=== PATIENT | male | born 1935 | race Caucasian/White ===

== ENCOUNTER → 2017-03-18 | Outpatient (REF) | payer MEDICARE, OTHER | LOC: M LAB REF 18:40 | PROVIDERS: ATTEND Surgery | DX: E11.621 Type 2 diabetes mellitus with foot ulcer (principal); I70.245 Atherosclerosis of native arteries of left leg with ulceration of other part of foot; L97.523 Non-pressure chronic ulcer of other part of left foot with necrosis of muscle | CPT/HCPCS: 11043; 88305; G0463 ==

== ENCOUNTER → 2017-11-07 | Outpatient (REF) | payer OTHER ==
[2017-11-07 21:30] LABS: BASO # 0.1 10^3/uL (0.0-0.2); BASO % 1.2 % (0.0-1.0); EOS # 0.1 10^3/uL (0.0-0.50); EOS % 2.8 % (0.0-3.0); HEMATOCRIT 27.1 % (42.0-52.0); HEMOGLOBIN 8.5 g/dl (14.0-18.0); IMMATURE GRANULOCYTE % 1.4 % (0-3.0); LYMPH # 1.1 10^3/uL (1.5-4.5); LYMPH % 21.4 % (24.0-44.0); MEAN CORPUSCULAR HEMOGLOBIN 29.5 pg (27.0-33.0); MEAN CORPUSCULAR HGB CONC 31.4 g/dl (32.0-36.5); MEAN CORPUSCULAR VOLUME 94.1 fl (80.0-96.0); MONO # 0.6 10^3/uL (0.0-0.8); MONO % 12.1 % (0.0-5.0); NEUTROPHILS # 3.1 10^3/uL (1.8-7.7); NEUTROPHILS % 61.1 % (36.0-66.0); PLATELET COUNT, AUTOMATED 265 10^3/uL (150-450); RED BLOOD COUNT 2.88 10^6/uL (4.30-6.10); RED CELL DISTRIBUTION WIDTH 19.8 % (11.5-14.5); WHITE BLOOD COUNT 5.1 10^3/uL (4.0-10.0)
[2017-11-07 21:49] LABS: ALBUMIN 2.5 GM/DL (3.2-5.2); ALBUMIN/GLOBULIN RATIO 0.54 (1.00-1.93); ALKALINE PHOSPHATASE 55 U/L (45-117); ALT/SGPT 9 U/L (12-78); ANION GAP 10 MEQ/L (8-16); AST/SGOT 33 U/L (7-37); BILIRUBIN,TOTAL 1.2 MG/DL (0.2-1.0); BLOOD UREA NITROGEN 18 MG/DL (7-18); C REACTIVE PROTEIN QUANTITATIV 6.03 MG/DL (0.00-0.30); CALCIUM LEVEL 8.2 MG/DL (8.8-10.2); CARBON DIOXIDE LEVEL 31 MEQ/L (21-32); CHLORIDE LEVEL 98 MEQ/L (98-107); CREATININE FOR GFR 1.56 MG/DL (0.70-1.30); GLOMERULAR FILTRATION RATE 45.6 (>35); GLUCOSE, FASTING 94 MG/DL (70-100); POTASSIUM SERUM 3.6 MEQ/L (3.5-5.1); SODIUM LEVEL 139 MEQ/L (136-145); TOTAL PROTEIN 7.1 GM/DL (6.4-8.2)
[2017-11-07 22:29] LABS: ERYTHROCYTE SEDIMENTATION RATE 129 mm/hr (0-20)
== END ==
LOC: M LAB REF 10:02
DX: Z79.2 Long term (current) use of antibiotics (principal); A49.01 Methicillin susceptible Staphylococcus aureus infection, unspecified site
CPT/HCPCS: 80053

== ENCOUNTER → 2017-11-14 | Outpatient (REF) | payer OTHER ==
[2017-11-14 19:04] LABS: BASO # 0.1 10^3/uL (0.0-0.2); BASO % 1.1 % (0.0-1.0); EOS # 0.2 10^3/uL (0.0-0.50); EOS % 3.1 % (0.0-3.0); HEMATOCRIT 28.8 % (42.0-52.0); HEMOGLOBIN 9.2 g/dl (14.0-18.0); IMMATURE GRANULOCYTE % 1.8 % (0-3.0); LYMPH # 1.3 10^3/uL (1.5-4.5); LYMPH % 24.6 % (24.0-44.0); MEAN CORPUSCULAR HEMOGLOBIN 30.3 pg (27.0-33.0); MEAN CORPUSCULAR HGB CONC 31.9 g/dl (32.0-36.5); MEAN CORPUSCULAR VOLUME 94.7 fl (80.0-96.0); MONO # 0.6 10^3/uL (0.0-0.8); MONO % 10.7 % (0.0-5.0); NEUTROPHILS # 3.2 10^3/uL (1.8-7.7); NEUTROPHILS % 58.7 % (36.0-66.0); PLATELET COUNT, AUTOMATED 280 10^3/uL (150-450); RED BLOOD COUNT 3.04 10^6/uL (4.30-6.10); RED CELL DISTRIBUTION WIDTH 19.9 % (11.5-14.5); WHITE BLOOD COUNT 5.4 10^3/uL (4.0-10.0)
[2017-11-14 19:15] LABS: ALBUMIN 2.8 GM/DL (3.2-5.2); ALBUMIN/GLOBULIN RATIO 0.62 (1.00-1.93); ALKALINE PHOSPHATASE 58 U/L (45-117); ALT/SGPT 46 U/L (12-78); ANION GAP 14 MEQ/L (8-16); AST/SGOT 70 U/L (7-37); BILIRUBIN,TOTAL 0.8 MG/DL (0.2-1.0); BLOOD UREA NITROGEN 31 MG/DL (7-18); C REACTIVE PROTEIN QUANTITATIV 4.69 MG/DL (0.00-0.30); CALCIUM LEVEL 8.6 MG/DL (8.8-10.2); CARBON DIOXIDE LEVEL 26 MEQ/L (21-32); CHLORIDE LEVEL 99 MEQ/L (98-107); CREATININE FOR GFR 1.58 MG/DL (0.70-1.30); GLOMERULAR FILTRATION RATE 44.9 (>35); GLUCOSE, FASTING 130 MG/DL (70-100); POTASSIUM SERUM 4.4 MEQ/L (3.5-5.1); SODIUM LEVEL 139 MEQ/L (136-145); TOTAL PROTEIN 7.3 GM/DL (6.4-8.2)
[2017-11-14 20:48] LABS: ERYTHROCYTE SEDIMENTATION RATE 89 mm/hr (0-20)
== END ==
LOC: M LAB REF 17:46
DX: J18.9 Pneumonia, unspecified organism (principal)
CPT/HCPCS: 80053

== ENCOUNTER → 2017-11-21 | Outpatient (REF) | payer OTHER ==
[2017-11-21 21:04] LABS: BASO # 0.1 10^3/uL (0.0-0.2); EOS # 0.2 10^3/uL (0.0-0.50); EOS % 2.6 % (0.0-3.0); HEMATOCRIT 28.6 % (42.0-52.0); HEMOGLOBIN 9.3 g/dl (14.0-18.0); IMMATURE GRANULOCYTE % 0.8 % (0-3.0); LYMPH # 1.3 10^3/uL (1.5-4.5); LYMPH % 20.6 % (24.0-44.0); MEAN CORPUSCULAR HEMOGLOBIN 30.7 pg (27.0-33.0); MEAN CORPUSCULAR HGB CONC 32.5 g/dl (32.0-36.5); MEAN CORPUSCULAR VOLUME 94.4 fl (80.0-96.0); MONO # 0.6 10^3/uL (0.0-0.8); MONO % 9.9 % (0.0-5.0); NEUTROPHILS # 3.9 10^3/uL (1.8-7.7); NEUTROPHILS % 65.1 % (36.0-66.0); PLATELET COUNT, AUTOMATED 265 10^3/uL (150-450); RED BLOOD COUNT 3.03 10^6/uL (4.30-6.10); WHITE BLOOD COUNT 6.1 10^3/uL (4.0-10.0)
[2017-11-21 21:32] LABS: ERYTHROCYTE SEDIMENTATION RATE 107 mm/hr (0-20)
[2017-11-21 21:43] LABS: ALBUMIN/GLOBULIN RATIO 0.63 (1.00-1.93); ALKALINE PHOSPHATASE 60 U/L (45-117); ALT/SGPT 22 U/L (12-78); ANION GAP 7 MEQ/L (8-16); AST/SGOT 65 U/L (7-37); BILIRUBIN,TOTAL 0.7 MG/DL (0.2-1.0); BLOOD UREA NITROGEN 48 MG/DL (7-18); C REACTIVE PROTEIN QUANTITATIV 8.92 MG/DL (0.00-0.30); CALCIUM LEVEL 8.9 MG/DL (8.8-10.2); CARBON DIOXIDE LEVEL 29 MEQ/L (21-32); CHLORIDE LEVEL 100 MEQ/L (98-107); CREATININE FOR GFR 1.94 MG/DL (0.70-1.30); GLOMERULAR FILTRATION RATE 35.4 (>35); GLUCOSE, FASTING 69 MG/DL (70-100); SODIUM LEVEL 136 MEQ/L (136-145); TOTAL PROTEIN 7.8 GM/DL (6.4-8.2)
[2017-11-21 21:48] LABS: POTASSIUM SERUM 5.5 MEQ/L (3.5-5.1)
== END ==
LOC: M LAB REF 20:54
DX: J18.9 Pneumonia, unspecified organism (principal); Z89.442 Acquired absence of left ankle
CPT/HCPCS: 80053

== ENCOUNTER 2018-09-04 12:00 | Inpatient (IN) | payer OTHER ==
[~2018-09-04] VITALS: Ht 182.9 cm; Wt 98.5 kg
[2018-09-04 12:00] VITALS: BP 131/60
[2018-09-04] MEDS ORDERED: ASPI81TA24 PO (12:59)
[2018-09-04] MEDS ORDERED: ACE65ERTAB PO (12:59)
[2018-09-04] MEDS ORDERED: DIGO0.12 PO (12:59)
[2018-09-04] MEDS ORDERED: DIAZ2TAB PO (12:59)
[2018-09-04] MEDS ORDERED: FENO145T13 PO (13:12)
[2018-09-04] MEDS ORDERED: SENO8.6T5 PO (13:12)
[2018-09-04] MEDS ORDERED: WARF-21 PO (13:12)
[2018-09-04] MEDS ORDERED: ESCI5SOL3 PO (13:12)
[2018-09-04] MEDS ORDERED: FURO40TA2 PO (13:12)
[2018-09-04] MEDS ORDERED: PANT40TA3 PO (13:12)
[2018-09-04] MEDS ORDERED: FERR325T3 PO (13:12)
[2018-09-04] MEDS ORDERED: INSUHUMDS SC (13:12)
[2018-09-04] MEDS ORDERED: LANTINJ4 SC (13:12)
[2018-09-04] MEDS ORDERED: LEXA5TAB13 PO (13:14)
[2018-09-04 14:00] VITALS: BP 122/57
[2018-09-04] MEDS ORDERED: PERCOCET 5MG/325MG TAB PO PRN ×2 (16:30)
[2018-09-04] MEDS ORDERED: ONDANSETRON 4 MG TAB (S0181) PO PRN (16:30)
[2018-09-04] MEDS ORDERED: MOM 30ML SUSPENSION UDC PO PRN (16:30)
[2018-09-04] MEDS ORDERED: BISACODYL 10 MG SUPP PR PRN (16:30)
[2018-09-04] MEDS ORDERED: GLUCOSE 4 GM CHEW TABLET PO PRN (17:00)
[2018-09-04] MEDS ORDERED: IPRATROPIUM 0.5MG/ALBUTEROL 2.5MG INH SOL UD 3ML (DUONEB)(J7620) NEB PRN (17:00)
[2018-09-04] MEDS ORDERED: DEXTROSE 50% 50 ML SYRINGE IV PRN (17:00)
[2018-09-04] MEDS ORDERED: diazePAM 2 MG TAB PO PRN (17:00)
[2018-09-04] MEDS ORDERED: PIPERACILLIN/TAZOBACTAM SOD 3.375 GM in D5W MINI-BAG PLUS 50 ML IV SCH (17:00)
[2018-09-04] MEDS ORDERED: GLUCAGON FOR INJ 1 MG VIAL (J1610) SC PRN (17:00)
[2018-09-04] MEDS: WARFARIN SOD 5 MG TAB PO SCH (17:30)
[2018-09-04] MEDS: HumaLOG INSULIN (NovoLOG) PER UNIT SC SCH (17:30)
[2018-09-04 20:00] VITALS: BP 126/57
--- NOTE | 2018-09-04 20:30 | HPEPDOC ---
[facility] Medical History & Physical Date of Admission Sep 04, 2018 History and Physical PRIMARY CARE PROVIDER: Dr. Genaro Mccollum Referring physician/hospital: Dr. Rush/[facility] HISTORY OF PRESENT ILLNESS: 83-year-old male presenting status post hospital discharge from [facility]. Patient is a poor historian, much information is obtained from the chart. 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 Postoperatively he experienced swelling, anemia, and was treated with IV Zosyn for pneumonia. Prior to this beginning 05/04/18 he underwent a popliteal artery to fibular artery bypass with reverse saphenous grafting and subsequently required amputation of his toes secondary to poor healing and gangrene. Initially he only had his first big toe amputated, however poor healing requiring a dictation of his second and third. Eventually he was admitted to the hospital on 08/25/18 with cellulitis and left foot gangrene subsequently underwent a left-sided BKA. He has no complaints at this time. 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 3 [place] and 2 chickens FAMILY HISTORY: Both parents are with a history of diabetes ALLERGIES: Please see below. REVIEW OF SYSTEMS: GENERAL: Denies fevers, chills, recent unexpected weight change HEENT: Denies headache, dizziness, vision changes, sore throat CARDIOVASCULAR: Denies chest pain,palpitations RESPIRATORY: Denies shortness of breath,cough, wheezing GASTROINTESTINAL: denies nausea,vomiting, abdominal pain, constipation, diarrhea GENITOURINARY: Denies dysuria,urinary urgency, frequency. MUSCULOSKELETAL: Denies myalgias,arthralgias NEUROLOGICAL: Denies any new numbness/tingling HOME MEDICATIONS: Please see below. PHYSICAL EXAMINATION: Vitals: (see below) General: No acute distress, laying comfortably in chair HEENT: Normocephalic, atraumatic. EOMI. Partial hearing loss in both ears. 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 Moist mucous membranes. Neck: No JVD or lymphadenopathy Cardiac: Irregular rate and rhythm on auscultation, normal S1 and S2. No murmurs appreciated on auscultation Pulm: Clear to auscultation b/l. No wheezing, rhonchi, crackles Abd: Soft, nontender, nondistended. Bowel sounds present. No rebound, guarding, rigidity. Ext: Left-sided BKA with wound dressing applied. No right-sided edema or cyanosis. Neuro: Strength 5/5 BUE and RLE. CN 3-12 intact. Sensation intact. LABORATORY DATA: See below. IMAGING: MICROBIOLOGY: Please see below. ASSESSMENT/PLAN: Patient is an 83-year-old male with significant vascular disease and diabetes status post left-sided BKA presenting to [facility] for rehabilitation. #. Rehabilitation Defer to primary team #. Left-sided BKA Primary team would likely benefit from outpatient and inpatient records especially from the patient's hospital stay Continue with pain medication (Percocet) as needed and valium for muscle spasm. #. Type 2 diabetes Sliding scale insulin 20 units of Levemir daily at bedtime #. History of anemia s/p BKA Continue with iron supplementation #. Atrial fibrillation Continue Coumadin, INR monitoring #. Diastolic Heart failure Continue with daily Lasix and digoxin #. Diabetic neuropathy Continue gabapentin #. Hyperlipidemia Continue with Ezetimibe and Fenofibrate #.Depression/anxiety? (patient unaware of medical conditions or medications) Continue with Lexapro #. COPD Continue duonebs as needed #. Constipation Continue with colace, dulcolax, milk of magnesia and senna #. GERD Continue Protonix DVT prophy: On Coumadin Vital Signs Vital Signs Date Time Temp Pulse Resp B/P (MAP) Pulse Ox O2 Delivery O2 Flow Rate FiO2 09/04/18 14:00 98.2 58 18 122/57 (78) 100 Room Air Laboratory Data Labs 24H Laboratory Tests 2 09/04/18 13:04: Bedside Glucose (Misc Panel) 261H 09/04/18 16:30: Bedside Glucose (Misc Panel) 238H 09/04/18 19:59: Bedside Glucose (Misc Panel) 250H Home Medications Scheduled (Digoxin) 125 Mcg Tab, 125 MCG PO QPM Aspirin (Aspirin EC) 81 Mg Tab, 81 MG PO DAILY Escitalopram Oxalate (Lexapro) 5 Mg Tab, 5 MG PO DAILY Fenofibrate (Fenofibrate) 145 Mg Tab, 145 MG PO QPM Ferrous Sulfate (Ferrous Sulfate) 325 Mg Tab, 325 MG PO BID Furosemide (Furosemide) 40 Mg Tab, 40 MG PO DAILY Insulin Glargine (Lantus Solostar) 100 Unit/Ml Inj, 18 UNITS SC QHS Insulin Human Lispro (Humalog) 1 Units/0.01 Ml Inj, 1 UNITS SC AC SLIDING SCALE Pantoprazole Sodium (Pantoprazole Sodium) 40 Mg Tab, 40 MG PO DAILY Senna (Senokot) 8.6 Mg Tab, 8.6 MG PO DAILY HOLD FOR LOOSE STOOLS Warfarin Sod (Warfarin Sodium) 7.5 Mg Tab, 7.5 MG PO ONCE GIVEN A ONE TIME ORDER Scheduled PRN Acetaminophen (Acetaminophen ER) 650 Mg Tab, 650 MG PO Q6H PRN for PAIN Allergies Coded Allergies: Statins (Unverified Adverse Reaction, Mild, LEGS FEEL HEAVY, 09/04/18) GME ATTESTATION GME ATTESTATION My faculty preceptor for this patient encounter was physically present during the encounter and was fully available. All aspects of the patient interview, examination, medical decision making process, and medical care plan development were reviewed and approved by the faculty preceptor. The faculty preceptor is aware and concurs with the plan as stated in the body of this note and will attest to such by his/her cosignature. MICHAEL LANGSTON DO Sep 04, 2018 20:30 JESSICA DIANE MD Sep 25, 2018 21:04
[2018-09-04] MEDS ORDERED: DOXYCYCLINE HYCLATE 100 MG TAB PO SCH (21:00)
[2018-09-04] MEDS: GABAPENTIN 300 MG CAP PO SCH (21:32)
[2018-09-04] MEDS: DOCUSATE SODIUM 100 MG CAP PO SCH (21:32)
[2018-09-04] MEDS: FENOFIBRATE 145 MG TAB (TRICOR) PO SCH (21:32)
[2018-09-04] MEDS: SENNA 8.6 MG TAB (SENOKOT) PO SCH (21:32)
[2018-09-04] MEDS: FERROUS SULFATE 325MG TAB PO SCH (21:33)
[2018-09-04] MEDS: EZETIMIBE 10 MG TAB (ZETIA) PO SCH (21:33)
[2018-09-04] MEDS: LEVEMIR (INSULIN DETEMIR) 1 UNITS/0.01ML SC SCH (21:36)
[2018-09-04] MEDS: DIGOXIN 0.125 MG TAB PO SCH (21:36)
[2018-09-04] MEDS: ACETAMINOPHEN TAB 650MG DOSE (2X325MG) PO PRN (21:37)
[2018-09-05 01:08] LABS: APPEARANCE, URINE CLEAR (CLEAR); BACTERIA, URINE AUTO NEGATIVE (NEGATIVE); BILIRUBIN, URINE AUTO NEGATIVE (NEGATIVE); BLOOD, URINE BLOOD NEGATIVE (NEGATIVE); COLOR, URINE YELLOW (YELLOW); GLUCOSE, URINE (UA) AUTO 1+ mg/dL (NEGATIVE); KETONE, URINE AUTO NEGATIVE (NEGATIVE); LEUKOCYTE ESTERASE, URINE AUTO NEGATIVE (NEGATIVE); MUCUS, URINE SMALL (NEGATIVE); NITRITE, URINE AUTO NEGATIVE (NEGATIVE); PROTEIN, URINE AUTO NEGATIVE (NEGATIVE); RBC, URINE AUTO 3 /HPF (0-3); SPECIFIC GRAVITY URINE AUTO 1.009 (1.002-1.035); SQUAMOUS EPITHELIAL CELL UR AU 0 /HPF (0-6); UROBILINOGEN, URINE AUTO 0.2 mg/dL (0.0-2.0); WBC, URINE AUTO 0 /HPF (0-3)
[2018-09-05 06:00] VITALS: BP 150/68
[2018-09-05 07:15] LABS: BASO # 0.1 10^3/uL (0.0-0.2); BASO % 1.1 % (0.0-1.0); EOS # 0.4 10^3/uL (0.0-0.50); EOS % 5.6 % (0.0-3.0); HEMATOCRIT 29.2 % (42.0-52.0); HEMOGLOBIN 9.9 g/dl (13.5-17.5); LYMPH # 1.6 10^3/uL (1.5-4.5); LYMPH % 21.9 % (24.0-44.0); MEAN CORPUSCULAR HEMOGLOBIN 30.6 pg (27.0-33.0); MEAN CORPUSCULAR HGB CONC 33.9 g/dl (32.0-36.5); MEAN CORPUSCULAR VOLUME 90.1 fl (80.0-96.0); MONO # 0.8 10^3/uL (0.0-0.8); MONO % 10.6 % (0.0-5.0); NEUTROPHILS # 4.3 10^3/uL (1.8-7.7); PLATELET COUNT, AUTOMATED 324 10^3/uL (150-450); RED BLOOD COUNT 3.24 10^6/uL (4.30-6.10); WHITE BLOOD COUNT 7.4 10^3/uL (4.0-10.0)
[2018-09-05 07:22] LABS: INR 1.97; PROTHROMBIN TIME 22.8 SECONDS (12.1-14.4)
[2018-09-05 07:30] LABS: ALBUMIN 3.5 GM/DL (3.2-5.2); BILIRUBIN,TOTAL 0.4 MG/DL (0.2-1.0); CALCIUM LEVEL 8.9 MG/DL (8.8-10.2); CREATININE FOR GFR 1.63 MG/DL (0.70-1.30); GLOMERULAR FILTRATION RATE 43.2 (>35); POTASSIUM SERUM 4.1 MEQ/L (3.5-5.1); TOTAL PROTEIN 7.4 GM/DL (6.4-8.2)
[2018-09-05] MEDS: HumaLOG INSULIN (NovoLOG) PER UNIT SC SCH ×3 (09:16→17:30)
[2018-09-05] MEDS: FERROUS SULFATE 325MG TAB PO SCH ×2 (09:17→20:56)
[2018-09-05] MEDS: PANTOPRAZOLE 40MG TAB (PROTONIX) PO SCH (09:17)
[2018-09-05] MEDS: FUROSEMIDE 40 MG TAB PO SCH (09:17)
[2018-09-05] MEDS: DOCUSATE SODIUM 100 MG CAP PO SCH ×2 (09:17→20:56)
[2018-09-05] MEDS: GABAPENTIN 300 MG CAP PO SCH ×2 (09:17→20:56)
[2018-09-05] MEDS: ASPIRIN 81 MG ENTERIC TAB PO SCH (09:17)
[2018-09-05] MEDS: ACETAMINOPHEN TAB 650MG DOSE (2X325MG) PO PRN (09:18)
--- NOTE | 2018-09-05 11:19 | HPEPDOC ---
[facility] Note DATE OF ADMISSION: Sep 04, 2018 at 12:00 SOURCE OF ADMISSION INFORMATION: Patient and Gary's medical records CHIEF COMPLAINT: left BKA HISTORY OF PRESENT ILLNESS: 83M pmh Afib, uncontrolled DM, PAD, TIAs, diastolic chronic CHF, CKD, HTN who h ad a popliteal-peroneal artery bypass in April 2018 with a persistent non- healing ulcer that resulted in both a 3rd digit amputation and later a 3rd ray amputation was admitted to [facility] for repeat angiogram and wound debridement on 08-23-18. Repeat Angiogram showed an occluded bypass graft so debridement was postponed and he was medically cleared for BKA performed by Dr. Rush and Dr. Eden of vascular surgery on 08-29-18. Initially there were no complications post-op, however he was treated with IV Zosyn and Vancomycin for suspected MRSA in his wounds and later for a suspected pneumonia seen on CXR. Blood cultures, however came back negative and he was found to lo longer have leukocytosis or cough and his antibiotics were discontinued. His diabetes was controlled with insulin therapy and he was deemed medically appropriate for discharge to ARU on 09-04-18 for pre-prosthetic training. REVIEW OF SYSTEMS: The following is a completed review of systems and has been reviewed. Review of systems otherwise unremarkable. PAIN: Patient self reports no pain EYES: Negative for recent vision changes. EARS, NOSE, & THROAT:+[place], no dysphagia or rhinorrhea CARDIOVASCULAR: denies chest pain or palpitations PULMONARY: Negative. Denies shortness of breath GASTROINTESTINAL: Negative for constipation or diarrhea GENITOURINARY: Negative for dysuria MUSCULOSKELETAL: left BKA NEUROLOGICAL: +distal neuropathy HEMATOLOGICAL: bilat UE ecchymosis SKIN: left BKA incision PSYCHIATRIC: Unremarkable All other review of systems found to be negative. PAST MEDICAL HISTORY: Afib, uncontrolled DM, PAD, TIAs, diastolic chronic CHF, CKD, HTN PAST SURGICAL HISTORY: Aortic Valve replacement, mitral valve repair, CTS, multiple angiograms and left LE amputations ALLERGIES: Please see below. MEDICATIONS: Please see below. FAMILY HISTORY: DM, Alzheimers, Cardiac SOCIAL HISTORY:Lives with , former 1ppd smoker, denies ETOH or illicit drugs, retired [employer]. DIET: diabetic PHYSICAL EXAMINATION: VITAL SIGNS: Please see below. GENERAL: Pleasant and cooperative. No acute distress. HEENT: PERRL. Extraocular movements intact. Clear conjunctiva, +glasses CARDIOVASCULAR: Irregular rate and rhythm. No murmurs, rubs, or gallops LUNGS: Clear to auscultation bilaterally. No wheezes. No rhonchi ABDOMEN: Soft, nontender, nondistended. Positive bowel sounds. Normal active bowel sounds NEUROLOGICAL: [Alert and oriented times three. Cranial nerves II through XII grossly intact. Sensation grossly intact]. EXTREMITIES: 5-\5 strength bilateral upper extremities.5-\5 strength right hip flexors and knee extensors, 2/5 ankle DF and 0/5 EHL 5-/5 strength in left hip flexors, knee extensors and flexors lower extremity. . SKIN: left residual limb acewrapped +sternotomy scar IMAGING: Imaging documentation personally reviewed by record FUNCTIONAL STATUS: Premorbid: Independent with all activities of daily life as well as mobility while using a RW. On Admission: Mid assist with ambulation, Min-Mod with lower body dressing. GOALS: Modified Independent with ambulation with RW, dressing, grooming, toileting, medical optimization, family training, assess for DME needs. ASSESSMENT:84-year-old M with past medical history of CAD, DM, PAD who presents status post Left BKA. PLAN: 1. Rehab: PT, OT, assess for DME, keep residual limb in extension to prevent flexion contracture 2. Neuro: stable, hx of TIAs, continue ASA and statin for secondary stroke prevention- monitor BPs and adjust meds prn 3. CArdio: pmh Afic, AVR and mitral valve repair, with chronic diatlic CHF- continue digoxin, Coumadin, and lasix- medicine consulted 4. 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 Endo: pmh uncontrolled DM continue insulin coverage and adjust, consider restarting oral agents 6. ID: s/p recent course of IV ZOsyn and VAnco, monitor for infection- stable 7. : f/u admission UA and Ucx, monitor PVRs 8. DVT ppx: on Coumadin 9. GI ppx: Protonix 10. Skin: daily dressing changes 11. Dispo: to home date TBD POST ADMISSION PHYSICIAN EVALUATION: Medical and functional status: Description of medical status, medical assessment: As above. Rehabilitation diagnosis and current and prior cold morbid medical conditions as above. Risk of complications and plans to mitigate them as above. Description of functional status current status is as above. Prior status as above. Status compared to preadmission: There are no clinically significant differences between the patient's current status and the information described on the preadmission screening document. Treatment plan anticipated: Treatment plan is as described above. Required disciplines including physical therapy, occupational therapy, others as noted above. Intensity of services: 3 hours a day, 6 days a week. Special considerations: There are no specific special or safety considerations that would likely preclude immediate implementation of an intensive rehabilitation program or subsequently influence the plan of care ATTESTATION: Considering all the information above, it is my best judgment that this patient requires intensive rehabilitation therapy as described above and an inpatient hospital environment due to the complexity of nursing, medical, and rehabilitation needs required by the patient. Furthermore, this patient can reasonably be expected to participate in an benefit from an inpatient rehabilitation stay with an interdisciplinary team approach to the delivery of rehabilitation care under the direction and supervision of rehabilitation physician PROGNOSIS: Excellent ESTIMATED LENGTH OF STAY:10-14 days. PROJECTED DISCHARGE DESTINATION: Home with family support and any durable medical equipment required to increase functional safety and mobility TIME SPENT COUNSELING AND COORDINATING INITIAL CARE: Greater than 70 minutes. Vital Signs Vital Sign - Last 24 Hours 09/04/18 09/04/18 09/04/18 09/04/18 12:00 14:00 20:00 21:36 Temp 98.4 98.2 97.6 Pulse 59 58 53 64 Resp 18 18 19 B/P (MAP) 131/60 (83) 122/57 (78) 126/57 (80) Pulse Ox 98 100 97 O2 Delivery Room Air Room Air Room Air 09/05/18 06:00 Temp 97.6 Pulse 59 Resp 18 B/P (MAP) 150/68 (95) Pulse Ox 96 O2 Delivery Room Air Laboratory Data CBC/BMP Laboratory Tests 09/05/18 06:35 Red Blood Count 3.24 L, Mean Corpuscular Volume 90.1, Mean Corpuscular Hemoglobin 30.6, Mean Corpuscular Hemoglobin Concent 33.9, Red Cell Distribution Width 15.0 H, Neutrophils (%) (Auto) 59.0, Lymphocytes (%) (Auto) 21.9 L, Monocytes (%) (Auto) 10.6 H, Eosinophils (%) (Auto) 5.6 H, Basophils (%) (Auto) 1.1 H, Neutrophils # (Auto) 4.3, Lymphocytes # (Auto) 1.6, Monocytes # (Auto) 0.8, Eosinophils # (Auto) 0.4, Basophils # (Auto) 0.1, Calcium Level 8.9, Aspartate Amino Transf (AST/SGOT) 25, Alanine Aminotransferase (ALT/SGPT) 25, Alkaline Phosphatase 40 L, Total Bilirubin 0.4, Total Protein 7.4, Albumin 3.5 Labs 24H Laboratory Tests 2 09/04/18 13:04: Bedside Glucose (Misc Panel) 261H 09/04/18 16:30: Bedside Glucose (Misc Panel) 238H 09/04/18 19:59: Bedside Glucose (Misc Panel) 250H 09/05/18 00:53: Urine Appearance CLEAR, Urine Color YELLOW, Urine pH 5.0, Urine Specific [place] 1.009, Urine Protein NEGATIVE, Urine Glucose (UA) 1+H, Urine Ketones NEGATIVE, Urine Urobilinogen 0.2, Urine Bilirubin NEGATIVE, Urine Leukocyte Esterase NEGATIVE, Urine Blood NEGATIVE, Urine Nitrite NEGATIVE, Urine WBC (Auto) 0, Urine RBC (Auto) 3, Urine Hyaline Casts (Auto) 0, Urine Bacteria (Auto) NEGATIVE, Urine Squamous Epithelial Cells 0, Urine Mucus (Auto) SMALL, Urine Sperm (Auto) 09/05/18 06:35: Immature Granulocyte % (Auto) 1.8, White Blood Count 7.4, Red Blood Count 3.24L, Hemoglobin 9.9L, Hematocrit 29.2L, Mean Corpuscular Volume 90.1, Mean Corpuscular Hemoglobin 30.6, Mean Corpuscular Hemoglobin Concent 33.9, Red Cell Distribution Width 15.0H, Platelet Count 324, Neutrophils (%) (Auto) 59.0, Lymphocytes (%) (Auto) 21.9L, Monocytes (%) (Auto) 10.6H, Eosinophils (%) (Auto) 5.6H, Basophils (%) (Auto) 1.1H, Neutrophils # (Auto) 4.3, Lymphocytes # (Auto) 1.6, Monocytes # (Auto) 0.8, Eosinophils # (Auto) 0.4, Basophils # (Auto) 0.1, Nucleated Red Blood Cells % (auto) 0.0, Prothrombin Time 22.8H, Prothromb Time International Ratio 1.97, Bedside Glucose (Misc Panel) 178H, Anion Gap 8, Glomerular Filtration Rate 43.2, Blood Urea Nitrogen 43H, Creatinine 1.63H, Sodium Level 138, Potassium Level 4.1, Chloride Level 104, Carbon Dioxide Level 26, Calcium Level 8.9, Aspartate Amino Transf (AST/SGOT) 25, Alanine Aminotransferase (ALT/SGPT) 25, Alkaline Phosphatase 40L, Total Bilirubin 0.4, Total Protein 7.4, Albumin 3.5, Albumin/Globulin Ratio 0.90L FSBS Laboratory Tests Test 09/04/18 13:04 09/04/18 16:30 09/04/18 19:59 09/05/18 06:35 Range/Units Bedside Glucose (Misc Panel) 261 238 250 178 83-110 MG/DL Microbiology Microbiology 09/05/18 Urine Culture, Received Pending Home Medications Scheduled (Digoxin) 125 Mcg Tab, 125 MCG PO QPM, (Reported) Aspirin (Aspirin EC) 81 Mg Tab, 81 MG PO DAILY, (Reported) Escitalopram Oxalate (Lexapro) 5 Mg Tab, 5 MG PO DAILY, (Reported) Fenofibrate (Fenofibrate) 145 Mg Tab, 145 MG PO QPM, (Reported) Ferrous Sulfate (Ferrous Sulfate) 325 Mg Tab, 325 MG PO BID, (Reported) Furosemide (Furosemide) 40 Mg Tab, 40 MG PO DAILY, (Reported) Insulin Glargine (Lantus Solostar) 100 Unit/Ml Inj, 18 UNITS SC QHS, (Reported) Insulin Human Lispro (Humalog) 1 Units/0.01 Ml Inj, 1 UNITS SC AC, (Reported) SLIDING SCALE Pantoprazole Sodium (Pantoprazole Sodium) 40 Mg Tab, 40 MG PO DAILY, (Reported) Senna (Senokot) 8.6 Mg Tab, 8.6 MG PO DAILY, (Reported) HOLD FOR LOOSE STOOLS Warfarin Sod (Warfarin Sodium) 7.5 Mg Tab, 7.5 MG PO ONCE, (Reported) GIVEN A ONE TIME ORDER Scheduled PRN Acetaminophen (Acetaminophen ER) 650 Mg Tab, 650 MG PO Q6H PRN for PAIN, (Reported) Allergies Coded Allergies: Statins (Unverified Adverse Reaction, Mild, LEGS FEEL HEAVY, 09/04/18) GERMAINE AUSTIN MD Sep 05, 2018 11:05
[2018-09-05] MEDS: ESCITALOPRAM OXALATE 5MG TABLET (LEXAPRO) PO SCH (11:39)
[2018-09-05 14:00] VITALS: BP 124/56
[2018-09-05 15:12] LABS: CHOLESTEROL RISK RATIO 8.954 (<5)
[2018-09-05 15:39] LABS: HEMOGLOBIN A1c 8.3 %
--- NOTE | 2018-09-05 15:49 | IPN ---
DATE: 09/05/2018 SUBJECTIVE: The patient is seen and examined in the room with his daughter's. The patient denies any acute complaints. No events reported. OBJECTIVE: VITAL SIGNS: Temperature 97.6, pulse 59, pulse 59, respirations 18, blood pressure 150/68, pulse oximetry 96% on room air. GENERAL: No sign of acute distress. The patient is alert and oriented times three. HEENT: Normocephalic, atraumatic. Extraocular movements grossly intact. CARDIOVASCULAR: Irregularly irregular. Heart sounds S1, S2 LUNGS: Clear to auscultation bilaterally. ABDOMEN: Soft, nontender, nondistended. Bowel sounds are present. EXTREMITIES: Left below-knee amputation with wound dressing in place. No lower extremity edema noted of the right lower extremities. LABORATORY DATA: White blood count (WBC) is 7.4, hemoglobin 9.9, hematocrit 29.2, platelet count is 324. Sodium is 138, potassium is 4.1, chloride 104, carbon dioxide 26, BUN 14, creatinine 1.63, glomerular filtration rate (GFR) 43.2, fasting glucose is 178, calcium is 8.9, total bilirubin is 7.4, AST 25, ALT 25, alkaline phosphatase 40, total protein 7.4, albumin 3.5. PT is 22.8, INR is 1.97. MICROBIOLOGY: Urine culture is pending. ASSESSMENT AND PLAN: 1. Left-sided below-knee amputation. The patient is admitted to the acute ARU. Rehabilitation instructions to the primary team. The patient had a recent below-knee amputation at [facility]. Surgery was performed on August 29, 2018. The patient does have a significant history of peripheral arterial disease. The patient was also had a history of occluded bypass graft. When the patient was in [facility], the patient was treated empirically with antibiotic, vancomycin, also for suspected methicillin-resistant Staphylococcus aureus (MRSA) wound inflection. 2. Diabetes. The patient will be covered with sliding scale, consistent carbon hydrate, mechanical soft diet. 3. Diastolic dysfunction. Currently, the patient does not demonstrate any sign of fluid overload. The patient is on Lasix 40 mg by mouth daily, which is the patient's discharge medication from [facility]. 4. Hypertension. Currently, blood pressure is in satisfactory range. The patient is on Lasix. 5. Atrial fibrillation on digoxin and warfarin. The patient's INR is 1.97. Will followup PT/INR. 6. Chronic kidney disease, continue to monitor. 7. History of transient ischemic attack (TIA) on aspirin. According to the record, the patient do have adverse effect from the statin. 8. Diabetic neuropathy on gabapentin. 9. Deep vein thrombosis (DVT) prophylaxis on warfarin.
[2018-09-05] MEDS: WARFARIN SOD 5 MG TAB PO SCH (17:30)
[2018-09-05 20:00] VITALS: BP 131/62
[2018-09-05] MEDS: EZETIMIBE 10 MG TAB (ZETIA) PO SCH (20:56)
[2018-09-05] MEDS: LEVEMIR (INSULIN DETEMIR) 1 UNITS/0.01ML SC SCH (20:56)
[2018-09-05] MEDS: FENOFIBRATE 145 MG TAB (TRICOR) PO SCH (20:56)
[2018-09-05] MEDS: DIGOXIN 0.125 MG TAB PO SCH (20:59)
[2018-09-05] MEDS: SENNA 8.6 MG TAB (SENOKOT) PO SCH (20:59)
[2018-09-06 06:00] VITALS: BP 126/57
[2018-09-06 06:53] LABS: INR 2.38; PROTHROMBIN TIME 26.5 SECONDS (12.1-14.4)
[2018-09-06] MEDS: HumaLOG INSULIN (NovoLOG) PER UNIT SC SCH ×6 (07:39→17:20)
[2018-09-06] MEDS: DOCUSATE SODIUM 100 MG CAP PO SCH ×2 (09:00→21:00)
[2018-09-06] MEDS: ESCITALOPRAM OXALATE 5MG TABLET (LEXAPRO) PO SCH (09:12)
[2018-09-06] MEDS: FERROUS SULFATE 325MG TAB PO SCH ×2 (09:12→21:01)
[2018-09-06] MEDS: ASPIRIN 81 MG ENTERIC TAB PO SCH (09:12)
[2018-09-06] MEDS: PANTOPRAZOLE 40MG TAB (PROTONIX) PO SCH (09:12)
[2018-09-06] MEDS: GABAPENTIN 300 MG CAP PO SCH ×2 (09:12→21:02)
[2018-09-06] MEDS: FUROSEMIDE 40 MG TAB PO SCH (09:12)
[2018-09-06 14:00] VITALS: BP 130/60
--- NOTE | 2018-09-06 15:17 | IPNPDOC ---
PM&R Progress Note DATE OF SERVICE: Sep 06, 2018 [facility] Consultant Progress Note Subjective: Patient reports minimal pain, no fever, and is enjoying therapy so far. REVIEW OF SYSTEMS: The following is a completed review of systems and has been reviewed. Review of systems otherwise unremarkable. PAIN: Patient self reports no pain EYES: Negative for recent vision changes. EARS, NOSE, & THROAT:+[place], no dysphagia or rhinorrhea CARDIOVASCULAR: denies chest pain or palpitations PULMONARY: Negative. Denies shortness of breath GASTROINTESTINAL: Negative for constipation or diarrhea GENITOURINARY: Negative for dysuria MUSCULOSKELETAL: left BKA NEUROLOGICAL: +distal neuropathy HEMATOLOGICAL: bilat UE ecchymosis SKIN: left BKA incision PSYCHIATRIC: Unremarkable All other review of systems found to be negative. PHYSICAL EXAMINATION: VITAL SIGNS: Please see below. GENERAL: Pleasant and cooperative. No acute distress. HEENT: PERRL. Extraocular movements intact. Clear conjunctiva, +glasses CARDIOVASCULAR: Irregular rate and rhythm. No murmurs, rubs, or gallops LUNGS: Clear to auscultation bilaterally. No wheezes. No rhonchi ABDOMEN: Soft, nontender, nondistended. Positive bowel sounds. Normal active bowel sounds NEUROLOGICAL: Alert and oriented times three. Cranial nerves II through XII grossly intact. Sensation grossly intact except diminished right LE EXTREMITIES: 5-\5 strength bilateral upper extremities.5-\5 strength right hip flexors and knee extensors, 2/5 ankle DF and 0/5 EHL 5-/5 strength in left hip flexors, knee extensors and flexors lower extremity. . SKIN: left residual limb with sutures and kennedy, mild erythema, minimal swelling, +sternotomy scar ASSESSMENT:84-year-old M with past medical history of CAD, DM, PAD who presents status post Left BKA. PLAN: 1. Rehab: PT, OT, assess for DME, keep residual limb in extension to prevent flexion contracture, Min-MOd assist for transfers 2. Neuro: stable, hx of TIAs, continue ASA and statin for secondary stroke pr evention- monitor BPs and adjust meds prn 3. CArdio: pmh Afic, AVR and mitral valve repair, with chronic diastolic CHF- continue digoxin, Coumadin, and lasix- medicine consulted 4. 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 Endo: pmh uncontrolled DM continue insulin coverage and adjust, consider restarting oral agents 6. ID: s/p recent course of IV ZOsyn and VAnco, monitor for infection- stable 7. : admission UA and Ucx negative, monitor PVRs 8. DVT ppx: on Coumadin 9. GI ppx: Protonix 10. Skin: daily dressing changes 11. Dispo: to home date TBD, progressing towards goals Allergies Coded Allergies: Statins (Unverified Adverse Reaction, Mild, LEGS FEEL HEAVY, 09/04/18) Vital Signs Vital Signs Date Time Temp Pulse Resp B/P (MAP) Pulse Ox O2 Delivery O2 Flow Rate FiO2 09/06/18 06:00 97.8 59 18 126/57 (80) 98 Room Air Laboratory Data Labs 24H Laboratory Tests 2 09/05/18 16:33: Bedside Glucose (Misc Panel) 266H 09/05/18 19:54: Bedside Glucose (Misc Panel) 237H 09/06/18 06:10: Prothrombin Time 26.5H, Prothromb Time International Ratio 2.38 09/06/18 06:17: Bedside Glucose (Misc Panel) 177H 09/06/18 11:24: Bedside Glucose (Misc Panel) 256H Microbiology Microbiology 09/05/18 Urine Culture, Received Pending Current Medications Current Medications Current Medications Acetaminophen (Tylenol Tab) 650 mg Q4HP PRN PO fever/MILD PAIN (PS 1-4) Last administered on 09/05/18at 09:18; Start 09/04/18 at 16:30 Albuterol/ Ipratropium (Duoneb (Ipr 0.5mg/Alb 2.5mg)) 3 ml Q6HP PRN NEB SOB/WHEEZING; Start 09/04/18 at 17:00 Aspirin (Ecotrin) 81 mg DAILY PO Last administered on 09/06/18at 09:12; Start 09/05/18 at 09:00 Bisacodyl (Dulcolax Suppository) 10 mg DAILYPRN PRN [place] CONSTIPATION; Start 09/04/18 at 16:30 Dextrose (Dextrose 50%) 25 ml ASDIRECTED PRN IV SEE LABEL COMMENTS; Start 09/04/18 at 17:00 Diazepam (Valium) 2 mg Q8HP PRN PO spasm; Start 09/04/18 at 17:00 Digoxin (Lanoxin) 0.125 mg DAILY@2100 PO Last administered on 09/05/18 20:59; Start 09/04/18 at 21:00 Docusate Sodium (Colace) 100 mg BID PO Last administered on 09/05/18 20:56; Start 09/04/18 at 21:00 Doxycycline Hyclate (Vibramycin) 100 mg BID PO ; Start 09/04/18 at 21:00; Stop 09/04/18 at 21:00; Status DC Escitalopram Oxalate (Lexapro) 5 mg DAILY PO Last administered on 09/06/18 09:12; Start 09/05/18 at 09:00 EZETIMIBE (Zetia) 10 mg QHS PO Last administered on 09/05/18 20:56; Start 09/04/18 at 21:00 Fenofibrate (Tricor) 145 mg DAILY@2100 PO Last administered on 09/05/18 20:56; Start 09/04/18 at 21:00 Ferrous Sulfate (Ferrous Sulfate) 325 mg BID PO Last administered on 09/06/18 09:12; Start 09/04/18 at 21:00 Furosemide (Lasix) 40 mg DAILY PO Last administered on 09/06/18 09:12; Start 09/05/18 at 09:00 Gabapentin (Neurontin) 300 mg BID PO Last administered on 09/06/18 09:12; Start 09/04/18 at 21:00 Glucagon (Glucagon) 1 mg ASDIRECTED PRN SC SEE LABEL COMMENTS; Start 09/04/18 at 17:00 Glucose (Glucose) 16 GM ASDIRECTED PRN PO SEE LABEL COMMENTS; Start 09/04/18 at 17:00 Home Med (Med Rec Complete!) ASDIRECTED XX ; Start 09/04/18 at 13:30; Stop 09/04/18 at 13:30; Status DC Insulin Detemir (Levemir Insulin) 20 units QHS SC Last administered on 09/05/18 20:56; Start 09/04/18 at 21:00 Insulin Human Lispro (HumaLOG INSULIN) 2 units AC SC Last administered on 09/06/18 12:19; Start 09/06/18 at 07:30 Insulin Human Lispro (HumaLOG INSULIN) SEE PROTOCOL TABLE AC SC Last administered on 09/06/18at 12:18; Start 09/04/18 at 17:30 Magnesium Hydroxide (Milk Of Magnesia) 30 ml DAILYPRN PRN PO CONSTIPATION; Start 09/04/18 at 16:30 Ondansetron HCl (Zofran) 4 mg Q6HP PRN PO NAUSEA; Start 09/04/18 at 16:30 Oxycodone/ Acetaminophen (Percocet 5mg/ 325mg Tablet) 1 tab Q4HP PRN PO MODERATE PAIN (PS 5-7); Start 09/04/18 at 16:30 Oxycodone/ Acetaminophen (Percocet 5mg/ 325mg Tablet) 2 tab Q4HP PRN PO SEVERE PAIN (PS 8-10); Start 09/04/18 at 16:30 Pantoprazole Sodium (Protonix) 40 mg DAILY PO Last administered on 09/06/18at 09:12; Start 09/05/18 at 09:00 Piperacillin Sod/ Tazobactam Sod 3.375 gm/Dextrose 50 ml @ 100 mls/hr Q6H IV ; Start 09/04/18 at 17:00; Stop 09/04/18 at 17:07; Status DC Senna (Senokot) 1 tab QHS PO Last administered on 09/04/18at 21:32; Start 09/04/18 at 21:00 Warfarin Sodium (Coumadin) 5 mg DAILY@17 PO Last administered on 09/05/18at 17:30; Start 09/04/18 at 17:00 GERMAINE AUSTIN MD Sep 06, 2018 15:17
--- NOTE | 2018-09-06 15:48 | IPNPDOC ---
Date Seen The patient was seen on 09/06/18. Progress Note Attending Dr Abbott PRIMARY CARE PROVIDER: Dr. Genaro Mccollum Referring physician/hospital: Dr. Rush/[facility] HISTORY OF PRESENT ILLNESS: 83-year-old male presenting status post hospital discharge from [facility]. Patient is a poor historian, much information is obtained from the chart. 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 Postoperatively he experienced swelling, anemia, and was treated with IV Zosyn for pneumonia. Prior to this beginning 05/04/18 he underwent a popliteal artery to fibular artery bypass with reverse saphenous grafting and subsequently required amputation of his toes secondary to poor healing and gangrene. Initially he only had his first big toe amputated, however poor healing required amputation of his second and third. Eventually he was admitted to the hospital on 08/25/18 with cellulitis and left foot gangrene subsequently underwent a left-sided BKA. The pt was transferred to [facility] to the care of Dr Chao 09/04/18. He has no complaints at this time. He is OOB to chair. 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 No acute distress. Alert and oriented x 3. HEENT: Normocephalic, atraumatic. Sclera are nonicteric. Conjunctiva without injection. No facial asymmetry. Moist mucous membranes. CHEST: Regular rate and rhythm, +S1, +S2 LUNGS: Clear to auscultation bilaterally. No wheezes, rales, or rhonchi. ABD: Round, soft, non-tender, non-distended. +Bowel sounds throughout. No rebound or guarding. No costovertebral angle tenderness. EXT: Trace Rt lower extremity edema appreciated. S/P Lt BKA. SKIN: [place], dry, warm. No rashes. NEURO: No focal deficits appreciated. A&P: 83-year-old male presenting status post hospital discharge from [facility]. Patient is a poor historian, much information is obtained from the chart. 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 Postoperatively he experienced swelling, anemia, and was treated with IV Zosyn for pneumonia. Prior to this beginning 05/04/18 he underwent a popliteal artery to fibular artery bypass with reverse saphenous grafting and subsequently required am putation of his toes secondary to poor healing and gangrene. Initially he only had his first big toe amputated, however poor healing required amputation of his second and third. Eventually he was admitted to the hospital on 08/25/18 with cellulitis and left foot gangrene subsequently underwent a left-sided BKA. The pt was transferred to [facility] to the care of Dr Chao 09/04/18. 1. Left-sided below-knee amputation. H/O PAD/history of occluded bypass graft. The patient was treated empirically with vancomycin during [facility] stay for suspected methicillin-resistant Staphylococcus aureus (MRSA) wound inflection. Mgmt as per ARU. Wound care as per ARU. Outpt F/U with vascular surgery. PT/OT Pain control. Bowel care 2. Diabetes. CC diet SSI Levemir 3. Diastolic dysfunction. Currently, the patient does not demonstrate any sign of fluid overload. Continue Lasix 40 mg by mouth daily 4. Hypertension. Currently, blood pressure is in satisfactory range. Lasix po. 5. Atrial fibrillation. Rate control digoxin Anticoagulation, warfarin. The patient's INR is 2.38. Monitor PT/INR. 6. Chronic kidney disease, continue to monitor. 7. History of transient ischemic attack (TIA) on aspirin. According to the record, the patient is intolerant of statin. 8. Diabetic neuropathy on gabapentin. VS, I&O, 24H, [place] Vital Signs/I&O Vital Signs Date Time Temp Pulse Resp B/P (MAP) Pulse Ox O2 Delivery O2 Flow Rate FiO2 09/06/18 06:00 97.8 59 18 126/57 (80) 98 Room Air I&O- Last 24 Hours up to 6 AM 09/06/18 06:00 Intake Total 1860 ml Output Total 400 ml Balance 1460 ml Laboratory Data 24H LABS Laboratory Tests 2 09/05/18 16:33: Bedside Glucose (Misc Panel) 266H 09/05/18 19:54: Bedside Glucose (Misc Panel) 237H 09/06/18 06:10: Prothrombin Time 26.5H, Prothromb Time International Ratio 2.38 09/06/18 06:17: Bedside Glucose (Misc Panel) 177H 09/06/18 11:24: Bedside Glucose (Misc Panel) 256H Microbiology Microbiology 09/05/18 Urine Culture, Received Pending Nia Epperson Sep 06, 2018 13:31
[2018-09-06] MEDS: WARFARIN SOD 5 MG TAB PO SCH (17:19)
[2018-09-06 20:00] VITALS: BP 121/67
[2018-09-06] MEDS: SENNA 8.6 MG TAB (SENOKOT) PO SCH (21:00)
[2018-09-06] MEDS: EZETIMIBE 10 MG TAB (ZETIA) PO SCH (21:01)
[2018-09-06] MEDS: DIGOXIN 0.125 MG TAB PO SCH (21:01)
[2018-09-06] MEDS: FENOFIBRATE 145 MG TAB (TRICOR) PO SCH (21:02)
[2018-09-06] MEDS: LEVEMIR (INSULIN DETEMIR) 1 UNITS/0.01ML SC SCH (21:03)
[2018-09-07 06:00] VITALS: BP 142/65
[2018-09-07 06:53] LABS: INR 2.35; PROTHROMBIN TIME 26.2 SECONDS (12.1-14.4)
[2018-09-07] MEDS: HumaLOG INSULIN (NovoLOG) PER UNIT SC SCH ×5 (07:26→17:14)
[2018-09-07] MEDS: FERROUS SULFATE 325MG TAB PO SCH ×2 (08:09→22:02)
[2018-09-07] MEDS: ESCITALOPRAM OXALATE 5MG TABLET (LEXAPRO) PO SCH (08:09)
[2018-09-07] MEDS: GABAPENTIN 300 MG CAP PO SCH ×2 (08:09→22:00)
[2018-09-07] MEDS: DOCUSATE SODIUM 100 MG CAP PO SCH ×2 (08:09→21:00)
[2018-09-07] MEDS: FUROSEMIDE 40 MG TAB PO SCH (08:09)
[2018-09-07] MEDS: PANTOPRAZOLE 40MG TAB (PROTONIX) PO SCH (08:09)
[2018-09-07] MEDS: ASPIRIN 81 MG ENTERIC TAB PO SCH (08:09)
[2018-09-07] MEDS ORDERED: HumaLOG INSULIN (NovoLOG) PER UNIT SC SCH (12:00)
[2018-09-07 14:10] VITALS: BP 116/55
[2018-09-07] MEDS: WARFARIN SOD 5 MG TAB PO SCH (17:14)
[2018-09-07 20:00] VITALS: BP 138/60
--- NOTE | 2018-09-07 20:29 | IPNPDOC ---
PM&R Progress Note DATE OF SERVICE: Sep 07, 2018 Planning Division Superintendent Progress Note Subjective: Patient seen in his room, instructed to work on glut strengthening and quads to prevent his right knee from buckling. REVIEW OF SYSTEMS: The following is a completed review of systems and has been reviewed. Review of systems otherwise unremarkable. PAIN: Patient self reports no pain EYES: Negative for recent vision changes. EARS, NOSE, & THROAT:+[place], no dysphagia or rhinorrhea CARDIOVASCULAR: denies chest pain or palpitations PULMONARY: Negative. Denies shortness of breath GASTROINTESTINAL: Negative for constipation or diarrhea GENITOURINARY: Negative for dysuria MUSCULOSKELETAL: left BKA NEUROLOGICAL: +distal neuropathy HEMATOLOGICAL: bilat UE ecchymosis SKIN: left BKA incision PSYCHIATRIC: Unremarkable All other review of systems found to be negative. PHYSICAL EXAMINATION: VITAL SIGNS: Please see below. GENERAL: Pleasant and cooperative. No acute distress. HEENT: PERRL. Extraocular movements intact. Clear conjunctiva, +glasses CARDIOVASCULAR: Irregular rate and rhythm. No murmurs, rubs, or gallops LUNGS: Clear to auscultation bilaterally. No wheezes. No rhonchi ABDOMEN: Soft, nontender, nondistended. Positive bowel sounds. Normal active bowel sounds NEUROLOGICAL: Alert and oriented times three. Cranial nerves II through XII grossly intact. Sensation grossly intact except diminished right LE EXTREMITIES: 5-\5 strength bilateral upper extremities.5-\5 strength right hip flexors and knee extensors, 2/5 ankle DF and 0/5 EHL 5-/5 strength in left hip flexors, knee extensors and flexors lower extremity. . SKIN: left residual limb with sutures and kennedy, mild erythema, minimal swelling, +sternotomy scar +right foot D1 black (blood filled) blister, does not appear to be a pressure ulcer or DTI ASSESSMENT:84-year-old M with past medical history of CAD, DM, PAD who presents status post Left BKA. PLAN: 1. Rehab: PT, OT, assess for DME, keep residual limb in extension to prevent flexion contracture, Min-MOd assist for transfers 2. Neuro: stable, hx of TIAs, continue ASA and statin for secondary stroke prevention- monitor BPs and adjust meds prn 3. CArdio: pmh Afic, AVR and mitral valve repair, with chronic diastolic CHF- continue digoxin, Coumadin, and lasix- medicine consulted 4. 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 Endo: pmh uncontrolled DM continue insulin coverage and adjust, consider restarting oral agents 6. ID: s/p recent course of IV ZOsyn and VAnco, monitor for infection- stable 7. : admission UA and Ucx negative, monitor PVRs 8. DVT ppx: on Coumadin 9. GI ppx: Protonix 10. Skin: daily dressing changes, monitor right foot D1 blister 11. Dispo: to home date TBD, progressing towards goals Allergies Coded Allergies: Statins (Unverified Adverse Reaction, Mild, LEGS FEEL HEAVY, 09/04/18) Vital Signs Vital Signs Date Time Temp Pulse Resp B/P (MAP) Pulse Ox O2 Delivery O2 Flow Rate FiO2 09/07/18 14:10 98.0 70 18 116/55 (75) 99 Room Air Laboratory Data Labs 24H Laboratory Tests 2 09/07/18 05:23: Bedside Glucose (Misc Panel) 198H 09/07/18 06:28: Prothrombin Time 26.2H, Prothromb Time International Ratio 2.35 09/07/18 11:34: Bedside Glucose (Misc Panel) 232H 09/07/18 16:35: Bedside Glucose (Misc Panel) 204H Microbiology Microbiology 09/05/18 Urine Culture - Final, Complete Escherichia Coli Current Medications Current Medications Current Medications Acetaminophen (Tylenol Tab) 650 mg Q4HP PRN PO fever/MILD PAIN (PS 1-4) Last administered on 09/05/18at 09:18; Start 09/04/18 at 16:30 Albuterol/ Ipratropium (Duoneb (Ipr 0.5mg/Alb 2.5mg)) 3 ml Q6HP PRN NEB SOB/WHEEZING; Start 09/04/18 at 17:00 Aspirin (Ecotrin) 81 mg DAILY PO Last administered on 09/07/18at 08:09; Start 09/05/18 at 09:00 Bisacodyl (Dulcolax Suppository) 10 mg DAILYPRN PRN [place] CONSTIPATION; Start 09/04/18 at 16:30 Dextrose (Dextrose 50%) 25 ml ASDIRECTED PRN IV SEE LABEL COMMENTS; Start 08/07 09/22 at 17:00 Diazepam (Valium) 2 mg Q8HP PRN PO spasm; Start 09/04/18 at 17:00 Digoxin (Lanoxin) 0.125 mg DAILY@2100 PO Last administered on 09/06/18 21:01; Start 09/04/18 at 21:00 Docusate Sodium (Colace) 100 mg BID PO Last administered on 09/05/18 20:56; Start 09/04/18 at 21:00 Doxycycline Hyclate (Vibramycin) 100 mg BID PO ; Start 09/04/18 at 21:00; Stop 09/04/18 at 21:00; Status DC Escitalopram Oxalate (Lexapro) 5 mg DAILY PO Last administered on 09/07/18 08:09; Start 09/05/18 at 09:00 EZETIMIBE (Zetia) 10 mg QHS PO Last administered on 09/06/18 21:01; Start 09/04/18 at 21:00 Fenofibrate (Tricor) 145 mg DAILY@2100 PO Last administered on 09/06/18 21:02; Start 09/04/18 at 21:00 Ferrous Sulfate (Ferrous Sulfate) 325 mg BID PO Last administered on 09/07/18 08:09; Start 09/04/18 at 21:00 Furosemide (Lasix) 40 mg DAILY PO Last administered on 09/07/18 08:09; Start 09/05/18 at 09:00 Gabapentin (Neurontin) 300 mg BID PO Last administered on 09/07/18 08:09; Start 09/04/18 at 21:00 Glucagon (Glucagon) 1 mg ASDIRECTED PRN SC SEE LABEL COMMENTS; Start 09/04/18 at 17:00 Glucose (Glucose) 16 GM ASDIRECTED PRN PO SEE LABEL COMMENTS; Start 09/04/18 at 17:00 Home Med (Med Rec Complete!) ASDIRECTED XX ; Start 09/04/18 at 13:30; Stop 09/04/18 at 13:30; Status DC Insulin Detemir (Levemir Insulin) 20 units QHS SC Last administered on 09/06/18 21:03; Start 09/04/18 at 21:00; Stop 09/07/18 at 10:24; Status DC Insulin Detemir (Levemir Insulin) 24 units QHS SC ; Start 09/07/18 at 21:00 Insulin Human Lispro (HumaLOG INSULIN) 2 units AC SC Last administered on 09/07/18 07:26; Start 09/06/18 at 07:30; Stop 09/07/18 at 10:24; Status DC Insulin Human Lispro (HumaLOG INSULIN) 4 units AC SC Last administered on 09/07/18at 12:43; Start 09/07/18 at 12:00; Stop 09/07/18 at 15:04; Status DC Insulin Human Lispro (HumaLOG INSULIN) 6 units AC SC Last administered on 09/07/18at 17:14; Start 09/07/18 at 17:30 Insulin Human Lispro (HumaLOG INSULIN) SEE PROTOCOL TABLE AC SC Last administered on 09/07/18 17:13; Start 09/04/18 at 17:30 Magnesium Hydroxide (Milk Of Magnesia) 30 ml DAILYPRN PRN PO CONSTIPATION; Start 09/04/18 at 16:30 Ondansetron HCl (Zofran) 4 mg Q6HP PRN PO NAUSEA; Start 09/04/18 at 16:30 Oxycodone/ Acetaminophen (Percocet 5mg/ 325mg Tablet) 1 tab Q4HP PRN PO MODERATE PAIN (PS 5-7); Start 09/04/18 at 16:30 Oxycodone/ Acetaminophen (Percocet 5mg/ 325mg Tablet) 2 tab Q4HP PRN PO SEVERE PAIN (PS 8-10); Start 09/04/18 at 16:30 Pantoprazole Sodium (Protonix) 40 mg DAILY PO Last administered on 09/07/18 08:09; Start 09/05/18 at 09:00 Piperacillin Sod/ Tazobactam Sod 3.375 gm/Dextrose 50 ml @ 100 mls/hr Q6H IV ; Start 09/04/18 at 17:00; Stop 09/04/18 at 17:07; Status DC Senna (Senokot) 1 tab QHS PO Last administered on 09/04/18at 21:32; Start 09/04/18 at 21:00 Warfarin Sodium (Coumadin) 5 mg DAILY@17 PO Last administered on 09/07/18 17:14; Start 09/04/18 at 17:00 GERMAINE AUSTIN MD Sep 07, 2018 20:29
[2018-09-07] MEDS: SENNA 8.6 MG TAB (SENOKOT) PO SCH (21:00)
[2018-09-07] MEDS: EZETIMIBE 10 MG TAB (ZETIA) PO SCH (22:00)
[2018-09-07] MEDS: FENOFIBRATE 145 MG TAB (TRICOR) PO SCH (22:02)
[2018-09-07] MEDS: DIGOXIN 0.125 MG TAB PO SCH (22:02)
[2018-09-07] MEDS: LEVEMIR (INSULIN DETEMIR) 1 UNITS/0.01ML SC SCH (22:03)
[2018-09-08 06:00] VITALS: BP 156/69
[2018-09-08 06:38] LABS: INR 2.49; PROTHROMBIN TIME 27.4 SECONDS (12.1-14.4)
[2018-09-08] MEDS: HumaLOG INSULIN (NovoLOG) PER UNIT SC SCH ×6 (08:45→17:45)
[2018-09-08] MEDS: PANTOPRAZOLE 40MG TAB (PROTONIX) PO SCH (08:46)
[2018-09-08] MEDS: DOCUSATE SODIUM 100 MG CAP PO SCH ×2 (08:46→21:00)
[2018-09-08] MEDS: FERROUS SULFATE 325MG TAB PO SCH ×2 (08:46→21:26)
[2018-09-08] MEDS: ASPIRIN 81 MG ENTERIC TAB PO SCH (08:46)
[2018-09-08] MEDS: GABAPENTIN 300 MG CAP PO SCH ×2 (08:46→21:25)
[2018-09-08] MEDS: ESCITALOPRAM OXALATE 5MG TABLET (LEXAPRO) PO SCH (08:47)
[2018-09-08] MEDS: FUROSEMIDE 40 MG TAB PO SCH (08:47)
--- NOTE | 2018-09-08 09:28 | IPNPDOC ---
Text Note Date of Service The patient was seen on 09/08/18. NOTE SUBJECTIVE: Patient was examined at bedside. He had no complains. He was was in good spirits OBJECTIVE: VITAL SIGNS: GENERAL:Pleasant elderly gentlemen, appears stated age, no acute complaints HEENT: Atraumatic head, neck is supple no thyromegaly CARDIOVASCULAR: Irregularly irregular. Heart sounds S1, S2, no murmurs LUNGS: Clear to auscultation bilaterally. ABDOMEN: Soft, nontender, nondistended. Bowel sounds are present. EXTREMITIES: Left below-knee amputation. No edema, no cyanosis MICROBIOLOGY: Urine culture positive for E. Coli UA negative ASSESSMENT AND PLAN: 1. Left-sided below-knee amputation, performed at [facility], on August 29, 2018. Continue with rehabilitation. 2. Positive urine culture. Patient's UA was negative. Patient denies any urinary symptoms. -Most likely colonized. -Patient recently completed a course of vancomycin and Zosyn for suspected MRSA wound infection. 3. Diabetes. The patient will be covered with sliding scale, consistent carbon hydrate, mechanical soft diet. 3. Diastolic dysfunction. -Well compensated at the moment -40 mg of Lasix daily 4. Hypertension. Currently, blood pressure is in satisfactory range. -Currently on Lasix. -Not on any antihypertensives 5. Atrial fibrillation on digoxin and warfarin. -INR is 2.49 6. Chronic kidney disease -BUN is 43 -Creatinine 1.63 7. History of transient ischemic attack (TIA) on aspirin. According to the record, the patient do have adverse effect from the statin. 8. Diabetic neuropathy on gabapentin. 9. Deep vein thrombosis (DVT) prophylaxis on warfarin. VS,Fishbone, I+O VS, Fishbone, I+O Vital Signs Date Time Temp Pulse Resp B/P (MAP) Pulse Ox O2 Delivery O2 Flow Rate FiO2 09/08/18 06:00 98.0 56 18 156/69 (98) 100 Room Air I&O- Last 24 Hours up to 6 AM 09/08/18 06:00 Intake Total 1680 ml Output Total 800 ml Balance 880 ml GME ATTESTATION GME ATTESTATION My faculty preceptor for this patient encounter was physically present during the encounter and was fully available. All aspects of the patient interview, examination, medical decision making process, and medical care plan development were reviewed and approved by the faculty preceptor. The faculty preceptor is aware and concurs with the plan as stated in the body of this note and will attest to such by his/her cosignature. MAMI BAINS DO Sep 08, 2018 08:21 KATIANA AMBRIZ DO Sep 26, 2018 20:57
[2018-09-08 14:00] VITALS: BP 152/68
[2018-09-08] MEDS: WARFARIN SOD 5 MG TAB PO SCH (17:45)
[2018-09-08 21:00] VITALS: BP 139/60
[2018-09-08] MEDS: SENNA 8.6 MG TAB (SENOKOT) PO SCH (21:00)
[2018-09-08] MEDS: EZETIMIBE 10 MG TAB (ZETIA) PO SCH (21:25)
[2018-09-08] MEDS: DIGOXIN 0.125 MG TAB PO SCH (21:26)
[2018-09-08] MEDS: FENOFIBRATE 145 MG TAB (TRICOR) PO SCH (21:26)
[2018-09-08] MEDS: LEVEMIR (INSULIN DETEMIR) 1 UNITS/0.01ML SC SCH (21:27)
[2018-09-09 06:00] VITALS: BP 126/60
[2018-09-09 06:57] LABS: INR 2.65; PROTHROMBIN TIME 28.8 SECONDS (12.1-14.4)
[2018-09-09] MEDS: HumaLOG INSULIN (NovoLOG) PER UNIT SC SCH ×6 (07:30→17:09)
[2018-09-09] MEDS: DOCUSATE SODIUM 100 MG CAP PO SCH ×2 (07:51→21:00)
[2018-09-09] MEDS: FUROSEMIDE 40 MG TAB PO SCH (08:39)
[2018-09-09] MEDS: GABAPENTIN 300 MG CAP PO SCH ×2 (08:39→20:29)
[2018-09-09] MEDS: FERROUS SULFATE 325MG TAB PO SCH ×2 (08:39→20:29)
[2018-09-09] MEDS: PANTOPRAZOLE 40MG TAB (PROTONIX) PO SCH (08:39)
[2018-09-09] MEDS: ESCITALOPRAM OXALATE 5MG TABLET (LEXAPRO) PO SCH (08:39)
[2018-09-09] MEDS: ASPIRIN 81 MG ENTERIC TAB PO SCH (08:39)
--- NOTE | 2018-09-09 10:31 | IPNPDOC ---
Text Note Date of Service The patient was seen on 09/09/18. NOTE SUBJECTIVE: Patient was examined bedside. He was sitting comfortably in chair with his left leg elevated. He had no acute complaints. OBJECTIVE: VITAL SIGNS: GENERAL: Alert and oriented HEENT: Atraumatic head, neck is supple no thyromegaly CARDIOVASCULAR: Irregularly irregular. Heart sounds S1, S2, no murmurs LUNGS: Clear to auscultation bilaterally. ABDOMEN: Soft, nontender, nondistended. Bowel sounds are present. EXTREMITIES: Left below-knee amputation. No edema, no cyanosis MICROBIOLOGY: Urine culture positive for E. Coli UA negative ASSESSMENT AND PLAN: 1. Left-sided below-knee amputation, performed at [facility], on August 29, 2018. Continue with rehabilitation. 2. Positive urine culture. Patient's UA was negative. Patient denies any urinary symptoms. -Most likely colonized. -Patient recently completed a course of vancomycin and Zosyn for suspected MRSA wound infection. -Continue to monitor 3. Diabetes. The patient will be covered with sliding scale, consistent carbon hydrate, mechanical soft diet. 3. Diastolic dysfunction. -Well compensated at the moment -40 mg of Lasix daily 4. Hypertension. Currently, blood pressure is in satisfactory range. With an elevation this AM -Currently on Lasix. -Not on any antihypertensives 5. Atrial fibrillation on digoxin and warfarin. -INR is 2.49 6. Chronic kidney disease -Stable, continue monitor 7. History of transient ischemic attack (TIA) on aspirin. According to the record, the patient do have adverse effect from the statin. 8. Diabetic neuropathy on gabapentin. 9. Deep vein thrombosis (DVT) prophylaxis on warfarin. VS,Fishbone, I+O VS, Fishbone, I+O Vital Signs Date Time Temp Pulse Resp B/P (MAP) Pulse Ox O2 Delivery O2 Flow Rate FiO2 09/09/18 06:00 98.2 69 18 126/60 (82) 95 Room Air I&O- Last 24 Hours up to 6 AM 09/09/18 06:00 Intake Total 1680 ml Output Total 300 ml Balance 1380 ml GME ATTESTATION GME ATTESTATION My faculty preceptor for this patient encounter was physically present during the encounter and was fully available. All aspects of the patient interview, examination, medical decision making process, and medical care plan development were reviewed and approved by the faculty preceptor. The faculty preceptor is aware and concurs with the plan as stated in the body of this note and will attest to such by his/her cosignature. MAMI BAINS DO Sep 09, 2018 10:30 KATIANA AMBRIZ DO Sep 26, 2018 21:32
[2018-09-09 14:00] VITALS: BP 125/63
--- NOTE | 2018-09-09 15:24 | IPNPDOC ---
PM&R Progress Note DATE OF SERVICE: Sep 08, 2018 Host Coordinator Progress Note Subjective: Patient seen in his room reporting he feels well, denies pain or difficulty urinating. REVIEW OF SYSTEMS: The following is a completed review of systems and has been reviewed. Review of systems otherwise unremarkable. PAIN: Patient self reports no pain EYES: Negative for recent vision changes. EARS, NOSE, & THROAT:+[place], no dysphagia or rhinorrhea CARDIOVASCULAR: denies chest pain or palpitations PULMONARY: Negative. Denies shortness of breath GASTROINTESTINAL: Negative for constipation or diarrhea GENITOURINARY: Negative for dysuria MUSCULOSKELETAL: left BKA NEUROLOGICAL: +distal neuropathy HEMATOLOGICAL: bilat UE ecchymosis SKIN: left BKA incision PSYCHIATRIC: Unremarkable All other review of systems found to be negative. PHYSICAL EXAMINATION: VITAL SIGNS: Please see below. GENERAL: Pleasant and cooperative. No acute distress. HEENT: PERRL. Extraocular movements intact. Clear conjunctiva, +glasses CARDIOVASCULAR: Irregular rate and rhythm. No murmurs, rubs, or gallops LUNGS: Clear to auscultation bilaterally. No wheezes. No rhonchi ABDOMEN: Soft, nontender, nondistended. Positive bowel sounds. Normal active bowel sounds NEUROLOGICAL: Alert and oriented times three. Cranial nerves II through XII grossly intact. Sensation grossly intact except diminished right LE EXTREMITIES: 5-\5 strength bilateral upper extremities.5-\5 strength right hip flexors and knee extensors, 2/5 ankle DF and 0/5 EHL 5-/5 strength in left hip flexors, knee extensors and flexors lower extremity. . SKIN: left residual limb with sutures and kennedy, mild erythema, minimal swelling, +sternotomy scar +right foot D1 black (blood filled) blister, does not appear to be a pressure ulcer or DTI ASSESSMENT:84-year-old M with past medical history of CAD, DM, PAD who presents status post Left BKA. PLAN: 1. Rehab: PT, OT, assess for DME, keep residual limb in extension to prevent flexion contracture, transfers improving with slide board, will trial platform walker 2. Neuro: stable, hx of TIAs, continue ASA and statin for secondary stroke prevention- monitor BPs and adjust meds prn 3. CArdio: pmh Afic, AVR and mitral valve repair, with chronic diastolic CHF- continue digoxin, Coumadin, and lasix- medicine consulted 4. 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 Endo: pmh uncontrolled DM continue insulin coverage and adjust, consider restarting oral agents 6. ID: s/p recent course of IV ZOsyn and VAnco, monitor for infection- stable 7. : admission UA negative, however Ux + E. coli will recollect as patient asymptomatic, monitor PVRs 8. DVT ppx: on Coumadin 9. GI ppx: Protonix 10. Skin: daily dressing changes, monitor right foot D1 blister 11. Dispo: to home date TBD, progressing towards goals Allergies Coded Allergies: Statins (Unverified Adverse Reaction, Mild, LEGS FEEL HEAVY, 09/04/18) Vital Signs Vital Signs Date Time Temp Pulse Resp B/P (MAP) Pulse Ox O2 Delivery O2 Flow Rate FiO2 09/09/18 06:00 98.2 69 18 126/60 (82) 95 Room Air Laboratory Data Labs 24H Laboratory Tests 2 09/08/18 17:03: Bedside Glucose (Misc Panel) 146H 09/08/18 21:24: Bedside Glucose (Misc Panel) 222H 09/09/18 06:30: Prothrombin Time 28.8H, Prothromb Time International Ratio 2.65 09/09/18 06:31: Bedside Glucose (Misc Panel) 180H 09/09/18 11:41: Bedside Glucose (Misc Panel) 220H Microbiology Microbiology 09/05/18 Urine Culture - Final, Complete Escherichia Coli Current Medications Current Medications Current Medications Acetaminophen (Tylenol Tab) 650 mg Q4HP PRN PO fever/MILD PAIN (PS 1-4) Last administered on 09/05/18at 09:18; Start 09/04/18 at 16:30 Albuterol/ Ipratropium (Duoneb (Ipr 0.5mg/Alb 2.5mg)) 3 ml Q6HP PRN NEB SOB/WHEEZING; Start 09/04/18 at 17:00 Aspirin (Ecotrin) 81 mg DAILY PO Last administered on 09/09/18at 08:39; Start 09/05/18 at 09:00 Bisacodyl (Dulcolax Suppository) 10 mg DAILYPRN PRN [place] CONSTIPATION; Start 09/04/18 at 16:30 Dextrose (Dextrose 50%) 25 ml ASDIRECTED PRN IV SEE LABEL COMMENTS; Start 08/07 09/22 at 17:00 Diazepam (Valium) 2 mg Q8HP PRN PO spasm; Start 09/04/18 at 17:00 Digoxin (Lanoxin) 0.125 mg DAILY@2100 PO Last administered on 09/08/18 21:26; Start 09/04/18 at 21:00 Docusate Sodium (Colace) 100 mg BID PO Last administered on 09/08/18 08:46; Start 09/04/18 at 21:00 Doxycycline Hyclate (Vibramycin) 100 mg BID PO ; Start 09/04/18 at 21:00; Stop 09/04/18 at 21:00; Status DC Escitalopram Oxalate (Lexapro) 5 mg DAILY PO Last administered on 09/09/18 08:39; Start 09/05/18 at 09:00 EZETIMIBE (Zetia) 10 mg QHS PO Last administered on 09/08/18 21:25; Start 09/04/18 at 21:00 Fenofibrate (Tricor) 145 mg DAILY@2100 PO Last administered on 09/08/18 21:26; Start 09/04/18 at 21:00 Ferrous Sulfate (Ferrous Sulfate) 325 mg BID PO Last administered on 09/09/18 08:39; Start 09/04/18 at 21:00 Furosemide (Lasix) 40 mg DAILY PO Last administered on 09/09/18 08:39; Start 09/05/18 at 09:00 Gabapentin (Neurontin) 300 mg BID PO Last administered on 09/09/18 08:39; Start 09/04/18 at 21:00 Glucagon (Glucagon) 1 mg ASDIRECTED PRN SC SEE LABEL COMMENTS; Start 09/04/18 at 17:00 Glucose (Glucose) 16 GM ASDIRECTED PRN PO SEE LABEL COMMENTS; Start 09/04/18 at 17:00 Home Med (Med Rec Complete!) ASDIRECTED XX ; Start 09/04/18 at 13:30; Stop 09/04/18 at 13:30; Status DC Insulin Detemir (Levemir Insulin) 20 units QHS SC Last administered on 09/06/18 21:03; Start 09/04/18 at 21:00; Stop 09/07/18 at 10:24; Status DC Insulin Detemir (Levemir Insulin) 24 units QHS SC Last administered on 09/08/18at 21:27; Start 09/07/18 at 21:00 Insulin Human Lispro (HumaLOG INSULIN) 2 units AC SC Last administered on 09/07/18at 07:26; Start 09/06/18 at 07:30; Stop 09/07/18 at 10:24; Status DC Insulin Human Lispro (HumaLOG INSULIN) 4 units AC SC Last administered on 09/07/18at 12:43; Start 09/07/18 at 12:00; Stop 09/07/18 at 15:04; Status DC Insulin Human Lispro (HumaLOG INSULIN) 6 units AC SC Last administered on 09/09/18at 12:00; Start 09/07/18 at 17:30 Insulin Human Lispro (HumaLOG INSULIN) SEE PROTOCOL TABLE AC SC Last administered on 09/09/18at 13:28; Start 09/04/18 at 17:30 Magnesium Hydroxide (Milk Of Magnesia) 30 ml DAILYPRN PRN PO CONSTIPATION; Start 09/04/18 at 16:30 Ondansetron HCl (Zofran) 4 mg Q6HP PRN PO NAUSEA; Start 09/04/18 at 16:30 Oxycodone/ Acetaminophen (Percocet 5mg/ 325mg Tablet) 1 tab Q4HP PRN PO MODERATE PAIN (PS 5-7); Start 09/04/18 at 16:30 Oxycodone/ Acetaminophen (Percocet 5mg/ 325mg Tablet) 2 tab Q4HP PRN PO SEVERE PAIN (PS 8-10); Start 09/04/18 at 16:30 Pantoprazole Sodium (Protonix) 40 mg DAILY PO Last administered on 09/09/18at 08:39; Start 09/05/18 at 09:00 Piperacillin Sod/ Tazobactam Sod 3.375 gm/Dextrose 50 ml @ 100 mls/hr Q6H IV ; Start 09/04/18 at 17:00; Stop 09/04/18 at 17:07; Status DC Senna (Senokot) 1 tab QHS PO Last administered on 09/04/18at 21:32; Start 09/04/18 at 21:00 Warfarin Sodium (Coumadin) 5 mg DAILY@17 PO Last administered on 09/08/18at 17:45; Start 09/04/18 at 17:00 GERMAINE AUSTIN MD Sep 09, 2018 15:24
[2018-09-09] MEDS: WARFARIN SOD 5 MG TAB PO SCH (17:08)
[2018-09-09 20:00] VITALS: BP 126/69
[2018-09-09] MEDS: ACETAMINOPHEN TAB 650MG DOSE (2X325MG) PO PRN (20:28)
[2018-09-09] MEDS: FENOFIBRATE 145 MG TAB (TRICOR) PO SCH (20:28)
[2018-09-09] MEDS: EZETIMIBE 10 MG TAB (ZETIA) PO SCH (20:28)
[2018-09-09] MEDS: LEVEMIR (INSULIN DETEMIR) 1 UNITS/0.01ML SC SCH (20:29)
[2018-09-09] MEDS: DIGOXIN 0.125 MG TAB PO SCH (20:29)
[2018-09-09] MEDS: SENNA 8.6 MG TAB (SENOKOT) PO SCH (21:00)
[2018-09-10 06:00] VITALS: BP 132/63
[2018-09-10 06:57] LABS: INR 2.78; PROTHROMBIN TIME 29.9 SECONDS (12.1-14.4)
[2018-09-10] MEDS: HumaLOG INSULIN (NovoLOG) PER UNIT SC SCH ×6 (07:30→17:33)
[2018-09-10] MEDS: DOCUSATE SODIUM 100 MG CAP PO SCH ×2 (08:36→21:05)
[2018-09-10] MEDS: ESCITALOPRAM OXALATE 5MG TABLET (LEXAPRO) PO SCH (09:30)
[2018-09-10] MEDS: FUROSEMIDE 40 MG TAB PO SCH (09:31)
[2018-09-10] MEDS: FERROUS SULFATE 325MG TAB PO SCH ×2 (09:31→21:05)
[2018-09-10] MEDS: PANTOPRAZOLE 40MG TAB (PROTONIX) PO SCH (09:31)
[2018-09-10] MEDS: GABAPENTIN 300 MG CAP PO SCH ×2 (09:31→21:05)
[2018-09-10] MEDS: ASPIRIN 81 MG ENTERIC TAB PO SCH (09:31)
[2018-09-10 14:00] VITALS: BP 128/58
[2018-09-10] MEDS: WARFARIN SOD 5 MG TAB PO SCH (17:34)
[2018-09-10 20:00] VITALS: BP 158/54
[2018-09-10] MEDS: SENNA 8.6 MG TAB (SENOKOT) PO SCH (21:05)
[2018-09-10] MEDS: FENOFIBRATE 145 MG TAB (TRICOR) PO SCH (21:05)
[2018-09-10] MEDS: LEVEMIR (INSULIN DETEMIR) 1 UNITS/0.01ML SC SCH (21:05)
[2018-09-10] MEDS: EZETIMIBE 10 MG TAB (ZETIA) PO SCH (21:05)
[2018-09-10] MEDS: DIGOXIN 0.125 MG TAB PO SCH (21:05)
[2018-09-11 06:38] VITALS: BP 146/67
[2018-09-11 07:01] LABS: INR 2.99; PROTHROMBIN TIME 31.7 SECONDS (12.1-14.4)
[2018-09-11] MEDS: HumaLOG INSULIN (NovoLOG) PER UNIT SC SCH ×6 (07:30→17:31)
[2018-09-11] MEDS: FUROSEMIDE 40 MG TAB PO SCH (08:33)
[2018-09-11] MEDS: ESCITALOPRAM OXALATE 5MG TABLET (LEXAPRO) PO SCH (08:33)
[2018-09-11] MEDS: FERROUS SULFATE 325MG TAB PO SCH ×2 (08:33→21:56)
[2018-09-11] MEDS: PANTOPRAZOLE 40MG TAB (PROTONIX) PO SCH (08:34)
[2018-09-11] MEDS: DOCUSATE SODIUM 100 MG CAP PO SCH ×2 (08:34→21:00)
[2018-09-11] MEDS: GABAPENTIN 300 MG CAP PO SCH ×2 (08:34→21:56)
[2018-09-11] MEDS: ASPIRIN 81 MG ENTERIC TAB PO SCH (08:35)
[2018-09-11 09:00] VITALS: BP 122/88
--- NOTE | 2018-09-11 12:57 | IPNPDOC ---
Date Seen The patient was seen on 09/11/18. Progress Note Attending Dr Abbott PRIMARY CARE PROVIDER: Dr. Genaro Mccollum Referring physician/hospital: Dr. [facility] HISTORY OF PRESENT ILLNESS: 83-year-old male presenting status post hospital discharge from [facility]. Patient is a poor historian, much information is obtained from the chart. 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 Postoperatively he experienced swelling, anemia, and was treated with IV Zosyn for pneumonia. Prior to this beginning 05/04/18 he underwent a popliteal artery to fibular artery bypass with reverse saphenous grafting and subsequently required amputation of his toes secondary to poor healing and gangrene. Initially he only had his first big toe amputated, however poor healing required amputation of his second and third. Eventually he was admitted to the hospital on 08/25/18 with cellulitis and left foot gangrene subsequently underwent a left-sided BKA. The pt was transferred to [facility] to the care of Dr Chao 09/04/18. He has no complaints at this time. He is OOB to wheelchair and working with OT. 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 No acute distress. Alert and oriented x 3. HEENT: Normocephalic, atraumatic. Sclera are nonicteric. Conjunctiva without injection. No facial asymmetry. Moist mucous membranes. CHEST: Regular rate and rhythm, +S1, +S2 LUNGS: Clear to auscultation bilaterally. No wheezes, rales, or rhonchi. ABD: Round, soft, non-tender, non-distended. +Bowel sounds throughout. No rebound or guarding. No costovertebral angle tenderness. EXT: Trace Rt lower extremity edema appreciated/TEDS applied. S/P Lt BKA, dressing intact. SKIN: [place], dry, warm. No rashes. NEURO: No focal deficits appreciated. A&P: 83-year-old male presenting status post hospital discharge from [facility]. Patient is a poor historian, much information is obtained from the chart. 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 Postoperatively he experienced swelling, anemia, and was treated with IV Zosyn for pneumonia. Prior to this beginning 05/04/18 he underwent a popliteal artery to fibular artery bypass with reverse saphenous grafting and subsequently required amputation of his toes secondary to poor healing and gangrene. Initially he only had his first big toe amputated, however poor healing required amputation of his second and third. Eventually he was admitted to the hospital on 08/25/18 with cellulitis and left foot gangrene subsequently underwent a left-sided BKA. The pt was transferred to [facility] to the care of Dr Chao 09/04/18. 1. Left-sided below-knee amputation. H/O PAD/history of occluded bypass graft. The patient was treated empirically with vancomycin during [facility] stay for suspected methicillin-resistant Staphylococcus aureus (MRSA) wound inflection. Mgmt as per ARU. Wound care as per ARU. Outpt F/U with vascular surgery. PT/OT Pain control. Bowel care 2. Diabetes. CC diet SSI Levemir 3. Diastolic dysfunction. No fluid overload currently. Continue Lasix 40 mg by mouth daily. Monitor. 4. Hypertension. Currently, blood pressure is in satisfactory range. Lasix po. 5. Atrial fibrillation. Rate control digoxin Anticoagulation, warfarin. The patient's INR is 2.99. Monitor PT/INR. 6. Chronic kidney disease, continue to monitor. 7. History of transient ischemic attack (TIA) on aspirin. According to the record, the patient is intolerant of statin. 8. Diabetic neuropathy on gabapentin. VS, I&O, 24H, Fishbone Vital Signs/I&O Vital Signs Date Time Temp Pulse Resp B/P (MAP) Pulse Ox O2 Delivery O2 Flow Rate FiO2 09/11/18 09:00 98.2 56 17 122/88 (99) 97 Room Air I&O- Last 24 Hours up to 6 AM 09/11/18 06:00 Intake Total 1080 ml Balance 1080 ml Laboratory Data 24H LABS Laboratory Tests 2 09/10/18 17:15: Bedside Glucose (Misc Panel) 196H 1/6/19 19:50: Bedside Glucose (Misc Panel) 191H 09/11/18 06:25: Prothrombin Time 31.7H, Prothromb Time International Ratio 2.99 Microbiology Microbiology 09/10/18 Urine Culture, Received Pending 09/05/18 Urine Culture - Final, Complete Escherichia Coli Nia Epperson Sep 11, 2018 12:57
[2018-09-11 14:00] VITALS: BP 132/59
--- NOTE | 2018-09-11 16:02 | IPN ---
DATE OF VISIT: 09/10/2018 SUBJECTIVE: The patient is seen and examined in the room today. The patient is sitting on a wheelchair comfortably watching television. No acute complaints. He denies any fevers or chills. The patient still has some discomfort at the left sqgdl-rmb-[id number] amputation (BKA) site. OBJECTIVE: VITAL SIGNS: Temperature 97.8, pulse is 57, respirations 18, blood pressure is 132/63, pulse oximetry is 96% on room air. GENERAL: No signs of acute distress. Alert and oriented times three. HEENT: Normocephalic, atraumatic. Extraocular motor grossly intact. CARDIOVASCULAR: Irregularly irregular. Positive S1, S2. RESPIRATORY: The patient's lungs are clear to auscultation bilaterally. ABDOMEN: Soft, nontender, nondistended. EXTREMITIES: The patient has a left uqanj-jxe-[id number] amputation. No lower extremity edema of the right lower extremity appreciated. LABORATORY DATA: His most recent laboratory data was performed on September 05, 2018. Laboratory data reviewed. ASSESSMENT AND PLAN: 1. Left-sided smsfq-kyy-dzeg amputation (BKA). Continue rehabilitation in acute rehabilitation unit (ARU). 2. Diabetes. On sliding scale and consistent carbohydrate diet. 3. Diastolic dysfunction. No sign of fluid overload at this moment. The patient is on Lasix. 4. Atrial fibrillation on digoxin. INR on September 10, 2018 is 2.75. 5. Chronic kidney disease. Continue to monitor. 6. History of transient ischemic attack (TIA) on aspirin. 7. Diabetic neuropathy on gabapentin. 8. Deep venous thrombosis (DVT) prophylaxis. The patient is on Coumadin with therapeutic INR.
--- NOTE | 2018-09-11 17:13 | IPNPDOC ---
PM&R Progress Note DATE OF SERVICE: Sep 11, 2018 City Tax Auditor Progress Note Subjective: Patient seen in his room with family members, still having some difficulty keeping his right leg from buckling. REVIEW OF SYSTEMS: The following is a completed review of systems and has been reviewed. Review of systems otherwise unremarkable. PAIN: Patient self reports no pain EYES: Negative for recent vision changes. EARS, NOSE, & THROAT:+[place], no dysphagia or rhinorrhea CARDIOVASCULAR: denies chest pain or palpitations PULMONARY: Negative. Denies shortness of breath GASTROINTESTINAL: Negative for constipation or diarrhea GENITOURINARY: Negative for dysuria MUSCULOSKELETAL: left BKA NEUROLOGICAL: +distal neuropathy HEMATOLOGICAL: bilat UE ecchymosis SKIN: left BKA incision PSYCHIATRIC: Unremarkable All other review of systems found to be negative. PHYSICAL EXAMINATION: VITAL SIGNS: Please see below. GENERAL: Pleasant and cooperative. No acute distress. HEENT: PERRL. Extraocular movements intact. Clear conjunctiva, +glasses CARDIOVASCULAR: Irregular rate and rhythm. No murmurs, rubs, or gallops LUNGS: Clear to auscultation bilaterally. No wheezes. No rhonchi ABDOMEN: Soft, nontender, nondistended. Positive bowel sounds. Normal active bowel sounds NEUROLOGICAL: Alert and oriented times three. Cranial nerves II through XII grossly intact. Sensation grossly intact except diminished right LE EXTREMITIES: 5-\5 strength bilateral upper extremities.5-\5 strength right hip f lexors and knee extensors, 2/5 ankle DF and 0/5 EHL 5-/5 strength in left hip flexors, knee extensors and flexors lower extremity. . SKIN: left residual limb with sutures and kennedy, mild erythema, minimal swelling, +sternotomy scar +right foot D1 black (blood filled) blister, does not appear to be a pressure ulcer or DTI ASSESSMENT:84-year-old M with past medical history of CAD, DM, PAD who presents status post Left BKA. PLAN: 1. Rehab: PT, OT, assess for DME, keep residual limb in extension to prevent flexion contracture, transfers improving with slide board, improving toilet transfers, however right knee buckling 2. Neuro: stable, hx of TIAs, continue ASA and statin for secondary stroke prevention- monitor BPs and adjust meds prn 3. CArdio: pmh Afic, AVR and mitral valve repair, with chronic diastolic CHF- continue digoxin, Coumadin, and lasix- medicine consulted 4. 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 Endo: pmh uncontrolled DM continue insulin coverage and adjust, consider restarting oral agents 6. ID: s/p recent course of IV ZOsyn and VAnco, monitor for infection- stable 7. : admission UA negative, however Ux + E. coli, repeat UA with trace LE, will treat with 7 day course of renally dosed Levaquin 8. DVT ppx: on Coumadin 9. GI ppx: Protonix 10. Skin: daily dressing changes, monitor right foot D1 blister 11. Dispo: to home 09-20-18 progressing towards goals Allergies Coded Allergies: Statins (Unverified Adverse Reaction, Mild, LEGS FEEL HEAVY, 09/04/18) Vital Signs Vital Signs Date Time Temp Pulse Resp B/P (MAP) Pulse Ox O2 Delivery O2 Flow Rate FiO2 09/11/18 14:00 98.5 58 17 100 Room Air 09/11/18 14:00 132/59 (83) Laboratory Data Labs 24H Laboratory Tests 2 09/10/18 17:15: Bedside Glucose (Misc Panel) 196H 09/10/18 19:50: Bedside Glucose (Misc Panel) 191H 09/11/18 06:25: Prothrombin Time 31.7H, Prothromb Time International Ratio 2.99 09/11/18 11:40: Bedside Glucose (Misc Panel) 161H 09/11/18 16:55: Bedside Glucose (Misc Panel) 320H Microbiology Microbiology 09/10/18 Urine Culture, Received Pending 09/05/18 Urine Culture - Final, Complete Escherichia Coli Current Medications Current Medications Current Medications Acetaminophen (Tylenol Tab) 650 mg Q4HP PRN PO fever/MILD PAIN (PS 1-4) Last administered on 09/09/18at 20:28; Start 09/04/18 at 16:30 Albuterol/ Ipratropium (Duoneb (Ipr 0.5mg/Alb 2.5mg)) 3 ml Q6HP PRN NEB SOB/WHEEZING; Start 09/04/18 at 17:00 Aspirin (Ecotrin) 81 mg DAILY PO Last administered on 09/11/18at 08:35; Start 09/05/18 at 09:00 Bisacodyl (Dulcolax Suppository) 10 mg DAILYPRN PRN NE CONSTIPATION; Start 09/04/18 at 16:30 Dextrose (Dextrose 50%) 25 ml ASDIRECTED PRN IV SEE LABEL COMMENTS; Start 09/04/18 at 17:00 Diazepam (Valium) 2 mg Q8HP PRN PO spasm; Start 09/04/18 at 17:00; Stop 09/11/18 at 11:26; Status DC Digoxin (Lanoxin) 0.125 mg DAILY@2100 PO Last administered on 09/10/18 21:05; Start 09/04/18 at 21:00 Docusate Sodium (Colace) 100 mg BID PO Last administered on 09/11/18 08:34; Start 09/04/18 at 21:00 Doxycycline Hyclate (Vibramycin) 100 mg BID PO ; Start 09/04/18 at 21:00; Stop 09/04/18 at 21:00; Status DC Escitalopram Oxalate (Lexapro) 5 mg DAILY PO Last administered on 09/11/18 08:33; Start 09/05/18 at 09:00 EZETIMIBE (Zetia) 10 mg QHS PO Last administered on 09/10/18 21:05; Start 09/04/18 at 21:00 Fenofibrate (Tricor) 145 mg DAILY@2100 PO Last administered on 09/10/18 21:05; Start 09/04/18 at 21:00 Ferrous Sulfate (Ferrous Sulfate) 325 mg BID PO Last administered on 09/11/18 08:33; Start 09/04/18 at 21:00 Furosemide (Lasix) 40 mg DAILY PO Last administered on 09/11/18 08:33; Start 09/05/18 at 09:00 Gabapentin (Neurontin) 300 mg BID PO Last administered on 09/11/18 08:34; Start 09/04/18 at 21:00 Glucagon (Glucagon) 1 mg ASDIRECTED PRN SC SEE LABEL COMMENTS; Start 09/04/18 at 17:00 Glucose (Glucose) 16 GM ASDIRECTED PRN PO SEE LABEL COMMENTS; Start 09/04/18 at 17:00 Home Med (Med Rec Complete!) ASDIRECTED XX ; Start 09/04/18 at 13:30; Stop 09/04/18 at 13:30; Status DC Insulin Detemir (Levemir Insulin) 20 units QHS SC Last administered on 09/06/18at 21:03; Start 09/04/18 at 21:00; Stop 09/07/18 at 10:24; Status DC Insulin Detemir (Levemir Insulin) 24 units QHS SC Last administered on 09/10/18at 21:05; Start 09/07/18 at 21:00 Insulin Human Lispro (HumaLOG INSULIN) 2 units AC SC Last administered on 09/07/18at 07:26; Start 09/06/18 at 07:30; Stop 09/07/18 at 10:24; Status DC Insulin Human Lispro (HumaLOG INSULIN) 4 units AC SC Last administered on 09/07/18at 12:43; Start 09/07/18 at 12:00; Stop 09/07/18 at 15:04; Status DC Insulin Human Lispro (HumaLOG INSULIN) 6 units AC SC Last administered on 09/11/18at 12:00; Start 09/07/18 at 17:30 Insulin Human Lispro (HumaLOG INSULIN) SEE PROTOCOL TABLE AC SC Last administered on 09/11/18at 12:41; Start 09/04/18 at 17:30 Magnesium Hydroxide (Milk Of Magnesia) 30 ml DAILYPRN PRN PO CONSTIPATION; Start 09/04/18 at 16:30 Miscellaneous (Unresolved Clarification Entry) SEE LABEL COMMENTS DAILY XX ; Start 09/10/18 at 09:00; Stop 09/11/18 at 11:29; Status DC Ondansetron HCl (Zofran) 4 mg Q6HP PRN PO NAUSEA; Start 09/04/18 at 16:30 Oxycodone/ Acetaminophen (Percocet 5mg/ 325mg Tablet) 1 tab Q4HP PRN PO MODERATE PAIN (PS 5-7); Start 09/04/18 at 16:30 Oxycodone/ Acetaminophen (Percocet 5mg/ 325mg Tablet) 2 tab Q4HP PRN PO SEVERE PAIN (PS 8-10); Start 09/04/18 at 16:30 Pantoprazole Sodium (Protonix) 40 mg DAILY PO Last administered on 09/11/18at 08:34; Start 09/05/18 at 09:00 Piperacillin Sod/ Tazobactam Sod 3.375 gm/Dextrose 50 ml @ 100 mls/hr Q6H IV ; Start 09/04/18 at 17:00; Stop 09/04/18 at 17:07; Status DC Senna (Senokot) 1 tab QHS PO Last administered on 09/10/18at 21:05; Start 09/04/18 at 21:00 Warfarin Sodium (Coumadin) 4 mg DAILY@17 PO ; Start 09/11/18 at 17:00 Warfarin Sodium (Coumadin) 5 mg DAILY@17 PO Last administered on 09/10/18at 17:34; Start 09/04/18 at 17:00; Stop 09/11/18 at 10:35; Status DC GERMAINE AUSTIN MD Sep 11, 2018 17:13
[2018-09-11] MEDS ORDERED: LevoFLOXacin 500 MG TABLET PO ONE (17:15)
[2018-09-11] MEDS: WARFARIN SOD 2 MG TAB PO SCH (17:31)
[2018-09-11 20:00] VITALS: BP 110/58
[2018-09-11] MEDS: SENNA 8.6 MG TAB (SENOKOT) PO SCH (21:00)
[2018-09-11] MEDS: DIGOXIN 0.125 MG TAB PO SCH (21:56)
[2018-09-11] MEDS: EZETIMIBE 10 MG TAB (ZETIA) PO SCH (21:57)
[2018-09-11] MEDS: LEVEMIR (INSULIN DETEMIR) 1 UNITS/0.01ML SC SCH (21:57)
[2018-09-11] MEDS: FENOFIBRATE 145 MG TAB (TRICOR) PO SCH (21:57)
[2018-09-12 06:00] VITALS: BP 130/62
[2018-09-12] MEDS: LevoFLOXacin 250 MG TABLET PO SCH (06:00)
[2018-09-12 07:08] LABS: BASO # 0.1 10^3/uL (0.0-0.2); BASO % 0.8 % (0.0-1.0); EOS # 0.3 10^3/uL (0.0-0.50); EOS % 4.2 % (0.0-3.0); HEMATOCRIT 27.8 % (42.0-52.0); HEMOGLOBIN 9.6 g/dl (13.5-17.5); LYMPH # 1.4 10^3/uL (1.5-4.5); LYMPH % 19.1 % (24.0-44.0); MEAN CORPUSCULAR HEMOGLOBIN 30.6 pg (27.0-33.0); MEAN CORPUSCULAR HGB CONC 34.5 g/dl (32.0-36.5); MEAN CORPUSCULAR VOLUME 88.5 fl (80.0-96.0); MONO # 0.8 10^3/uL (0.0-0.8); MONO % 10.2 % (0.0-5.0); NEUTROPHILS # 4.9 10^3/uL (1.8-7.7); NEUTROPHILS % 64.5 % (36.0-66.0); PLATELET COUNT, AUTOMATED 242 10^3/uL (150-450); RED BLOOD COUNT 3.14 10^6/uL (4.30-6.10); WHITE BLOOD COUNT 7.6 10^3/uL (4.0-10.0)
[2018-09-12 07:21] LABS: INR 2.65; PROTHROMBIN TIME 28.8 SECONDS (12.1-14.4)
[2018-09-12 07:34] LABS: CREATININE FOR GFR 1.68 MG/DL (0.70-1.30); GLOMERULAR FILTRATION RATE 41.7 (>35); POTASSIUM SERUM 3.9 MEQ/L (3.5-5.1)
[2018-09-12] MEDS: HumaLOG INSULIN (NovoLOG) PER UNIT SC SCH ×6 (07:53→17:27)
[2018-09-12] MEDS: GABAPENTIN 300 MG CAP PO SCH ×2 (09:47→22:20)
[2018-09-12] MEDS: ASPIRIN 81 MG ENTERIC TAB PO SCH (09:47)
[2018-09-12] MEDS: PANTOPRAZOLE 40MG TAB (PROTONIX) PO SCH (09:47)
[2018-09-12] MEDS: ESCITALOPRAM OXALATE 5MG TABLET (LEXAPRO) PO SCH (09:47)
[2018-09-12] MEDS: DOCUSATE SODIUM 100 MG CAP PO SCH ×2 (09:47→22:20)
[2018-09-12] MEDS: FERROUS SULFATE 325MG TAB PO SCH ×2 (09:47→22:20)
[2018-09-12] MEDS: FUROSEMIDE 40 MG TAB PO SCH (09:47)
[2018-09-12 14:00] VITALS: BP 108/56
--- NOTE | 2018-09-12 17:09 | IPNPDOC ---
PM&R Progress Note DATE OF SERVICE: Sep 12, 2018 [employer] Progress Note Subjective: Patient seen in his room eating lunch, he was wondering how he got a urinary tract infection. REVIEW OF SYSTEMS: The following is a completed review of systems and has been reviewed. Review of systems otherwise unremarkable. PAIN: Patient self reports no pain EYES: Negative for recent vision changes. EARS, NOSE, & THROAT:+[place], no dysphagia or rhinorrhea CARDIOVASCULAR: denies chest pain or palpitations PULMONARY: Negative. Denies shortness of breath GASTROINTESTINAL: Negative for constipation or diarrhea GENITOURINARY: Negative for dysuria MUSCULOSKELETAL: left BKA NEUROLOGICAL: +distal neuropathy HEMATOLOGICAL: bilat UE ecchymosis SKIN: left BKA incision PSYCHIATRIC: Unremarkable All other review of systems found to be negative. PHYSICAL EXAMINATION: VITAL SIGNS: Please see below. GENERAL: Pleasant and cooperative. No acute distress. HEENT: PERRL. Extraocular movements intact. Clear conjunctiva, +glasses CARDIOVASCULAR: Irregular rate and rhythm. No murmurs, rubs, or gallops LUNGS: Clear to auscultation bilaterally. No wheezes. No rhonchi ABDOMEN: Soft, nontender, nondistended. Positive bowel sounds. Normal active bowel sounds NEUROLOGICAL: Alert and oriented times three. Cranial nerves II through XII grossly intact. Sensation grossly intact except diminished right LE EXTREMITIES: 5-\5 strength bilateral upper extremities.5-\5 strength right hip flexors and knee extensors, 2/5 ankle DF and 0/5 EHL 5-/5 strength in left hip flexors, knee extensors and flexors lower extremity. . SKIN: left residual limb with sutures and kennedy, mild erythema, minimal swelling, +sternotomy scar +right foot D1 black (blood filled) blister, does not appear to be a pressure ulcer or DTI ASSESSMENT:84-year-old M with past medical history of CAD, DM, PAD who presents status post Left BKA. PLAN: 1. Rehab: PT, OT, assess for DME, keep residual limb in extension to prevent flexion contracture, transfers gradually improving with slide board, improving toilet transfers 2. Neuro: stable, hx of TIAs, continue ASA and statin for secondary stroke prevention- monitor BPs and adjust meds prn 3. CArdio: pmh Afic, AVR and mitral valve repair, with chronic diastolic CHF- continue digoxin, Coumadin, and lasix- medicine consulted 4. 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 Endo: pmh uncontrolled DM continue insulin coverage and adjust, consider restarting oral agents 6. ID: s/p recent course of IV ZOsyn and VAnco, monitor for infection- stable 7. : admission UA negative, however Ux + E. coli, repeat UA with trace LE, will treat with 7 day course of renally dosed Levaquin 8. DVT ppx: on Coumadin 9. GI ppx: Protonix 10. Skin: daily dressing changes, monitor right foot D1 blister, apply skin prep 11. Dispo: to home 09-20-18 progressing towards goals Allergies Coded Allergies: Statins (Unverified Adverse Reaction, Mild, LEGS FEEL HEAVY, 09/04/18) Vital Signs Vital Signs Date Time Temp Pulse Resp B/P (MAP) Pulse Ox O2 Delivery O2 Flow Rate FiO2 09/12/18 14:00 98.0 72 20 108/56 (73) 97 Room Air Laboratory Data CBC/BMP Laboratory Tests 09/12/18 06:50 Red Blood Count 3.14 L, Mean Corpuscular Volume 88.5, Mean Corpuscular Hemoglobin 30.6, Mean Corpuscular Hemoglobin Concent 34.5, Red Cell Distribution Width 14.9 H, Neutrophils (%) (Auto) 64.5, Lymphocytes (%) (Auto) 19.1 L, Monocytes (%) (Auto) 10.2 H, Eosinophils (%) (Auto) 4.2 H, Basophils (%) (Auto) 0.8, Neutrophils # (Auto) 4.9, Lymphocytes # (Auto) 1.4 L, Monocytes # (Auto) 0.8, Eosinophils # (Auto) 0.3, Basophils # (Auto) 0.1, Calcium Level 9.0 Labs 24H Laboratory Tests 2 09/11/18 20:55: Bedside Glucose (Misc Panel) 276H 09/12/18 06:50: Immature Granulocyte % (Auto) 1.2, White Blood Count 7.6, Red Blood Count 3.14L, Hemoglobin 9.6L, Hematocrit 27.8L, Mean Corpuscular Volume 88.5, Mean Corpuscular Hemoglobin 30.6, Mean Corpuscular Hemoglobin Concent 34.5, Red Cell Distribution Width 14.9H, Platelet Count 242, Neutrophils (%) (Auto) 64.5, Lymphocytes (%) (Auto) 19.1L, Monocytes (%) (Auto) 10.2H, Eosinophils (%) (Auto) 4.2H, Basophils (%) (Auto) 0.8, Neutrophils # (Auto) 4.9, Lymphocytes # (Auto) 1.4L, Monocytes # (Auto) 0.8, Eosinophils # (Auto) 0.3, Basophils # (Auto) 0.1, Nucleated Red Blood Cells % (auto) 0.0, Prothrombin Time 28.8H, Prothromb Time International Ratio 2.65, Anion Gap 9, Glomerular Filtration Rate 41.7, Blood Urea Nitrogen 37H, Creatinine 1.68H, Sodium Level 140, Potassium Level 3.9, Chloride Level 106, Carbon Dioxide Level 25, Calcium Level 9.0 09/12/18 07:04: Bedside Glucose (Misc Panel) 166H 09/12/18 11:59: Bedside Glucose (Misc Panel) 216H 09/12/18 17:00: Bedside Glucose (Misc Panel) 200H Microbiology Microbiology 09/10/18 Urine Culture - Final, Complete Escherichia Coli 09/05/18 Urine Culture - Final, Complete Escherichia Coli Current Medications Current Medications Current Medications Acetaminophen (Tylenol Tab) 650 mg Q4HP PRN PO fever/MILD PAIN (PS 1-4) Last administered on 09/09/18at 20:28; Start 09/04/18 at 16:30 Albuterol/ Ipratropium (Duoneb (Ipr 0.5mg/Alb 2.5mg)) 3 ml Q6HP PRN NEB SOB/WH EEZING; Start 09/04/18 at 17:00 Aspirin (Ecotrin) 81 mg DAILY PO Last administered on 09/12/18at 09:47; Start 09/05/18 at 09:00 Bisacodyl (Dulcolax Suppository) 10 mg DAILYPRN PRN [place] CONSTIPATION; Start 09/04/18 at 16:30 Dextrose (Dextrose 50%) 25 ml ASDIRECTED PRN IV SEE LABEL COMMENTS; Start at 17:00 Diazepam (Valium) 2 mg Q8HP PRN PO spasm; Start 09/04/18 at 17:00; Stop 09/11/18 at 11:26; Status DC Digoxin (Lanoxin) 0.125 mg DAILY@2100 PO Last administered on 09/11/18 21:56; Start 09/04/18 at 21:00 Docusate Sodium (Colace) 100 mg BID PO Last administered on 09/12/18 09:47; Start 09/04/18 at 21:00 Doxycycline Hyclate (Vibramycin) 100 mg BID PO ; Start 09/04/18 at 21:00; Stop 09/04/18 at 21:00; Status DC Escitalopram Oxalate (Lexapro) 5 mg DAILY PO Last administered on 09/12/18 09:47; Start 09/05/18 at 09:00 EZETIMIBE (Zetia) 10 mg QHS PO Last administered on 09/11/18 21:57; Start 09/04/18 at 21:00 Fenofibrate (Tricor) 145 mg DAILY@2100 PO Last administered on 09/11/18 21:57; Start 09/04/18 at 21:00 Ferrous Sulfate (Ferrous Sulfate) 325 mg BID PO Last administered on 09/12/18 09:47; Start 09/04/18 at 21:00 Furosemide (Lasix) 40 mg DAILY PO Last administered on 09/12/18 09:47; Start 09/05/18 at 09:00 Gabapentin (Neurontin) 300 mg BID PO Last administered on 09/12/18 09:47; Start 09/04/18 at 21:00 Glucagon (Glucagon) 1 mg ASDIRECTED PRN SC SEE LABEL COMMENTS; Start 09/04/18 at 17:00 Glucose (Glucose) 16 GM ASDIRECTED PRN PO SEE LABEL COMMENTS; Start 09/04/18 at 17:00 Home Med (Med Rec Complete!) ASDIRECTED XX ; Start 09/04/18 at 13:30; Stop 09/04/18 at 13:30; Status DC Insulin Detemir (Levemir Insulin) 20 units QHS SC Last administered on 09/06/18 21:03; Start 09/04/18 at 21:00; Stop 09/07/18 at 10:24; Status DC Insulin Detemir (Levemir Insulin) 24 units QHS SC Last administered on 09/11/18 21:57; Start 09/07/18 at 21:00 Insulin Human Lispro (HumaLOG INSULIN) 2 units AC SC Last administered on 09/07/18at 07:26; Start 09/06/18 at 07:30; Stop 09/07/18 at 10:24; Status DC Insulin Human Lispro (HumaLOG INSULIN) 4 units AC SC Last administered on 09/07/18at 12:43; Start 09/07/18 at 12:00; Stop 09/07/18 at 15:04; Status DC Insulin Human Lispro (HumaLOG INSULIN) 6 units AC SC Last administered on 09/12/18at 12:12; Start 09/07/18 at 17:30 Insulin Human Lispro (HumaLOG INSULIN) SEE PROTOCOL TABLE AC SC Last administered on 09/12/18at 12:12; Start 09/04/18 at 17:30 Levofloxacin (Levaquin) 250 mg DAILY@06 PO Last administered on 09/12/18at 06:00; Start 09/12/18 at 06:00; Stop 09/17/18 at 06:01 Magnesium Hydroxide (Milk Of Magnesia) 30 ml DAILYPRN PRN PO CONSTIPATION; Start 09/04/18 at 16:30 Miscellaneous (Unresolved Clarification Entry) SEE LABEL COMMENTS DAILY XX ; Start 09/10/18 at 09:00; Stop 09/11/18 at 11:29; Status DC Ondansetron HCl (Zofran) 4 mg Q6HP PRN PO NAUSEA; Start 09/04/18 at 16:30 Oxycodone/ Acetaminophen (Percocet 5mg/ 325mg Tablet) 1 tab Q4HP PRN PO MODERATE PAIN (PS 5-7); Start 09/04/18 at 16:30 Oxycodone/ Acetaminophen (Percocet 5mg/ 325mg Tablet) 2 tab Q4HP PRN PO SEVERE PAIN (PS 8-10); Start 09/04/18 at 16:30 Pantoprazole Sodium (Protonix) 40 mg DAILY PO Last administered on 09/12/18at 09:47; Start 09/05/18 at 09:00 Piperacillin Sod/ Tazobactam Sod 3.375 gm/Dextrose 50 ml @ 100 mls/hr Q6H IV ; Start 09/04/18 at 17:00; Stop 09/04/18 at 17:07; Status DC Senna (Senokot) 1 tab QHS PO Last administered on 09/10/18at 21:05; Start 09/04/18 at 21:00 Warfarin Sodium (Coumadin) 4 mg DAILY@17 PO Last administered on 09/11/18at 17:31; Start 09/11/18 at 17:00 Warfarin Sodium (Coumadin) 5 mg DAILY@17 PO Last administered on 09/10/18at 17:34; Start 09/04/18 at 17:00; Stop 09/11/18 at 10:35; Status DC GERMAINE AUSTIN MD Sep 12, 2018 17:09
[2018-09-12] MEDS: WARFARIN SOD 2 MG TAB PO SCH (17:26)
[2018-09-12 21:00] VITALS: BP 111/50
[2018-09-12] MEDS: LEVEMIR (INSULIN DETEMIR) 1 UNITS/0.01ML SC SCH (22:19)
[2018-09-12] MEDS: DIGOXIN 0.125 MG TAB PO SCH (22:20)
[2018-09-12] MEDS: SENNA 8.6 MG TAB (SENOKOT) PO SCH (22:20)
[2018-09-12] MEDS: EZETIMIBE 10 MG TAB (ZETIA) PO SCH (22:20)
[2018-09-12] MEDS: FENOFIBRATE 145 MG TAB (TRICOR) PO SCH (22:20)
[2018-09-13 06:11] VITALS: BP 121/64
[2018-09-13] MEDS: LevoFLOXacin 250 MG TABLET PO SCH (06:15)
[2018-09-13 07:18] LABS: INR 2.77; PROTHROMBIN TIME 29.8 SECONDS (12.1-14.4)
[2018-09-13] MEDS: HumaLOG INSULIN (NovoLOG) PER UNIT SC SCH ×6 (07:30→17:41)
[2018-09-13] MEDS: GABAPENTIN 300 MG CAP PO SCH ×2 (10:09→21:10)
[2018-09-13] MEDS: ESCITALOPRAM OXALATE 5MG TABLET (LEXAPRO) PO SCH (10:09)
[2018-09-13] MEDS: DOCUSATE SODIUM 100 MG CAP PO SCH ×2 (10:09→21:00)
[2018-09-13] MEDS: PANTOPRAZOLE 40MG TAB (PROTONIX) PO SCH (10:09)
[2018-09-13] MEDS: ASPIRIN 81 MG ENTERIC TAB PO SCH (10:09)
[2018-09-13] MEDS: FERROUS SULFATE 325MG TAB PO SCH ×2 (10:09→21:10)
[2018-09-13] MEDS: FUROSEMIDE 40 MG TAB PO SCH (10:10)
--- NOTE | 2018-09-13 13:06 | IPNPDOC ---
Date Seen The patient was seen on 09/13/18. Progress Note HISTORY OF PRESENT ILLNESS: 83-year-old male presenting status post hospital discharge from [facility]. 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 Postoperatively he experienced swelling, anemia, and was treated with IV Zosyn for pneumonia. Prior to this beginning 05/04/18 he underwent a popliteal artery to fibular artery bypass with reverse saphenous grafting and subsequently required amputation of his toes secondary to poor healing and gangrene. Initially he only had his first big toe amputated, however poor healing required amputation of his second and third. Eventually he was admitted to the hospital on 08/25/18 with cellulitis and left foot gangrene subsequently underwent a left-sided BKA. The pt was transferred to [facility] to the care of Dr Chao 09/04/18. He has no complaints at this time. He is OOB to wheelchair and working with OT. He states he fell out of his wheelchair this AM because he leaned forward but did not have his w/c locked and fell out. States it was reported to staff, his stump was checked and wound was unremarkable. He denies any injuries or pain at this time. 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 No acute distress. Alert and oriented x 3. HEENT: Normocephalic, atraumatic. Sclera are nonicteric. Conjunctiva without injection. No facial asymmetry. Moist mucous membranes. CHEST: Regular rate and rhythm, +S1, +S2 LUNGS: Clear to auscultation bilaterally. No wheezes, rales, or rhonchi. ABD: Round, soft, non-tender, non-distended. +Bowel sounds throughout. No rebo und or guarding. No costovertebral angle tenderness. EXT: Trace Rt lower extremity edema appreciated. S/P Lt BKA, dressing intact. SKIN: [place], dry, warm. No rashes. NEURO: No focal deficits appreciated. A&P: 83-year-old male presenting status post hospital discharge from [facility]. Patient is a poor historian, much information is obtained from the chart. 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 Postoperatively he experienced swelling, anemia, and was treated with IV Zosyn for pneumonia. Prior to this beginning 05/04/18 he underwent a popliteal artery to fibular artery bypass with reverse saphenous grafting and subsequently required amputation of his toes secondary to poor healing and gangrene. Initially he only had his first big toe amputated, however poor healing required amputation of his second and third. Eventually he was admitted to the hospital on 08/25/18 with cellulitis and left foot gangrene subsequently underwent a left-sided BKA. The pt was transferred to [facility] to the care of Dr Chao 09/04/18. 1. Left-sided below-knee amputation. H/O PAD/history of occluded bypass graft. The patient was treated empirically with vancomycin during [facility] stay for suspected methicillin-resistant Staphylococcus aureus (MRSA) wound inflection. Mgmt as per ARU. Wound care as per ARU. Outpt F/U with vascular surgery. PT/OT Pain control. Bowel care 2. Diabetes. CC diet SSI Levemir 3. Diastolic dysfunction. No fluid overload currently. Continue Lasix 40 mg by mouth daily. Monitor. 4. Hypertension. Currently, blood pressure is in satisfactory range. Lasix po. 5. Atrial fibrillation. Rate control digoxin Anticoagulation, warfarin. The patient's INR is 2.77. Monitor PT/INR. 6. Chronic kidney disease, continue to monitor. 7. History of transient ischemic attack (TIA) on aspirin. According to the record, the patient is intolerant of statin. 8. Diabetic neuropathy on gabapentin. 9. UTI. E Coli as per UC 09/13/17. Levaquin po renally dosed D2/7 VS, I&O, 24H, Fishbone Vital Signs/I&O Vital Signs Date Time Temp Pulse Resp B/P (MAP) Pulse Ox O2 Delivery O2 Flow Rate FiO2 09/13/18 06:11 97.1 75 18 121/64 (83) 95 Room Air I&O- Last 24 Hours up to 6 AM 09/13/18 05:59 Intake Total 1720 ml Output Total 400 ml Balance 1320 ml Laboratory Data 24H LABS Laboratory Tests 2 09/12/18 17:00: Bedside Glucose (Misc Panel) 200H 09/12/18 22:06: Bedside Glucose (Misc Panel) 240H 09/13/18 06:12: Bedside Glucose (Misc Panel) 176H 09/13/18 06:45: Prothrombin Time 29.8H, Prothromb Time International Ratio 2.77 09/13/18 12:00: Bedside Glucose (Misc Panel) 403H Microbiology Microbiology 09/10/18 Urine Culture - Final, Complete Escherichia Coli 09/05/18 Urine Culture - Final, Complete Escherichia Coli Nia Epperson Sep 13, 2018 13:06
[2018-09-13 14:00] VITALS: BP 119/65
[2018-09-13] MEDS: WARFARIN SOD 2 MG TAB PO SCH (17:42)
--- NOTE | 2018-09-13 18:45 | IPNPDOC ---
PM&R Progress Note DATE OF SERVICE: Sep 13, 2018 [employer] Progress Note Subjective: Patient seen in his room, he fell onto his stump today, but denies having any pain or swelling. He is feeling well overall. REVIEW OF SYSTEMS: The following is a completed review of systems and has been reviewed. Review of systems otherwise unremarkable. PAIN: Patient self reports no pain EYES: Negative for recent vision changes. EARS, NOSE, & THROAT:+[place], no dysphagia or rhinorrhea CARDIOVASCULAR: denies chest pain or palpitations PULMONARY: Negative. Denies shortness of breath GASTROINTESTINAL: Negative for constipation or diarrhea GENITOURINARY: Negative for dysuria MUSCULOSKELETAL: left BKA NEUROLOGICAL: +distal neuropathy HEMATOLOGICAL: bilat UE ecchymosis SKIN: left BKA incision PSYCHIATRIC: Unremarkable All other review of systems found to be negative. PHYSICAL EXAMINATION: VITAL SIGNS: Please see below. GENERAL: Pleasant and cooperative. No acute distress. HEENT: PERRL. Extraocular movements intact. Clear conjunctiva, +glasses CARDIOVASCULAR: Irregular rate and rhythm. No murmurs, rubs, or gallops LUNGS: Clear to auscultation bilaterally. No wheezes. No rhonchi ABDOMEN: Soft, nontender, nondistended. Positive bowel sounds. Normal active bowel sounds NEUROLOGICAL: Alert and oriented times three. Cranial nerves II through XII grossly intact. Sensation grossly intact except diminished right LE EXTREMITIES: 5-\5 strength bilateral upper extremities.5-\5 strength right hip flexors and knee extensors, 2/5 ankle DF and 0/5 EHL 5-/5 strength in left hip flexors, knee extensors and flexors lower extremity. . SKIN: left residual limb with sutures and kennedy, mild erythema, minimal swelling, +sternotomy scar +right foot D1 black (blood filled) blister, does not appear to be a pressure ulcer or DTI ASSESSMENT:84-year-old M with past medical history of CAD, DM, PAD who presents status post Left BKA. PLAN: 1. Rehab: PT, OT, assess for DME, keep residual limb in extension to prevent flexion contracture, transfers gradually improving with slide board, improving toilet transfers 2. Neuro: stable, hx of TIAs, continue ASA and statin for secondary stroke prevention- monitor BPs and adjust meds prn 3. CArdio: pmh Afic, AVR and mitral valve repair, with chronic diastolic CHF- continue digoxin, Coumadin, and lasix- medicine consulted 4. 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 Endo: pmh uncontrolled DM continue insulin coverage and adjust, consider restarting oral agents 6. ID: s/p recent course of IV ZOsyn and VAnco, monitor for infection- stable 7. : admission UA negative, however Ux + E. coli, repeat UA with trace LE, cari l treat with 7 day course of renally dosed Levaquin 8. DVT ppx: on Coumadin 9. GI ppx: Protonix 10. Skin: daily dressing changes, monitor right foot D1 blister, apply skin prep 11. Dispo: to home 09-20-18 progressing towards goals Allergies Coded Allergies: Statins (Unverified Adverse Reaction, Mild, LEGS FEEL HEAVY, 09/04/18) Vital Signs Vital Signs Date Time Temp Pulse Resp B/P (MAP) Pulse Ox O2 Delivery O2 Flow Rate FiO2 09/13/18 06:11 97.1 75 18 121/64 (83) 95 Room Air Laboratory Data Labs 24H Laboratory Tests 2 09/12/18 17:00: Bedside Glucose (Misc Panel) 200H 09/12/18 22:06: Bedside Glucose (Misc Panel) 240H 09/13/18 06:12: Bedside Glucose (Misc Panel) 176H 09/13/18 06:45: Prothrombin Time 29.8H, Prothromb Time International Ratio 2.77 09/13/18 12:00: Bedside Glucose (Misc Panel) 403H Microbiology Microbiology 09/10/18 Urine Culture - Final, Complete Escherichia Coli 09/05/18 Urine Culture - Final, Complete Escherichia Coli Current Medications Current Medications Current Medications Acetaminophen (Tylenol Tab) 650 mg Q4HP PRN PO fever/MILD PAIN (PS 1-4) Last administered on 09/09/18at 20:28; Start 09/04/18 at 16:30 Albuterol/ Ipratropium (Duoneb (Ipr 0.5mg/Alb 2.5mg)) 3 ml Q6HP PRN NEB SOB/WHEEZING; Start 09/04/18 at 17:00 Aspirin (Ecotrin) 81 mg DAILY PO Last administered on 09/13/18 10:09; Start 09/05/18 at 09:00 Bisacodyl (Dulcolax Suppository) 10 mg DAILYPRN PRN [place] CONSTIPATION; Start 09/04/18 at 16:30 Dextrose (Dextrose 50%) 25 ml ASDIRECTED PRN IV SEE LABEL COMMENTS; Start 09/04/18 at 17:00 Diazepam (Valium) 2 mg Q8HP PRN PO spasm; Start 09/04/18 at 17:00; Stop 09/11/18 at 11:26; Status DC Digoxin (Lanoxin) 0.125 mg DAILY@2100 PO Last administered on 09/12/18 22:20; Start 09/04/18 at 21:00 Docusate Sodium (Colace) 100 mg BID PO Last administered on 09/13/18 10:09; Start 09/04/18 at 21:00 Doxycycline Hyclate (Vibramycin) 100 mg BID PO ; Start 09/04/18 at 21:00; Stop 09/04/18 at 21:00; Status DC Escitalopram Oxalate (Lexapro) 5 mg DAILY PO Last administered on 09/13/18 10:09; Start 09/05/18 at 09:00 EZETIMIBE (Zetia) 10 mg QHS PO Last administered on 09/12/18 22:20; Start 09/04/18 at 21:00 Fenofibrate (Tricor) 145 mg DAILY@2100 PO Last administered on 09/12/18 22:20; Start 09/04/18 at 21:00 Ferrous Sulfate (Ferrous Sulfate) 325 mg BID PO Last administered on 09/13/18 10:09; Start 09/04/18 at 21:00 Furosemide (Lasix) 40 mg DAILY PO Last administered on 09/13/18 10:10; Start 09/05/18 at 09:00 Gabapentin (Neurontin) 300 mg BID PO Last administered on 09/13/18 10:09; Start 09/04/18 at 21:00 Glucagon (Glucagon) 1 mg ASDIRECTED PRN SC SEE LABEL COMMENTS; Start 09/04/18 at 17:00 Glucose (Glucose) 16 GM ASDIRECTED PRN PO SEE LABEL COMMENTS; Start 09/04/18 at 17:00 Home Med (Med Rec Complete!) ASDIRECTED XX ; Start 09/04/18 at 13:30; Stop 09/04/18 at 13:30; Status DC Insulin Detemir (Levemir Insulin) 20 units QHS SC Last administered on 09/06/18at 21:03; Start 09/04/18 at 21:00; Stop 09/07/18 at 10:24; Status DC Insulin Detemir (Levemir Insulin) 24 units QHS SC Last administered on 09/12/18at 22:19; Start 09/07/18 at 21:00 Insulin Human Lispro (HumaLOG INSULIN) 2 units AC SC Last administered on 09/07/18at 07:26; Start 09/06/18 at 07:30; Stop 09/07/18 at 10:24; Status DC Insulin Human Lispro (HumaLOG INSULIN) 4 units AC SC Last administered on 09/07/18at 12:43; Start 09/07/18 at 12:00; Stop 09/07/18 at 15:04; Status DC Insulin Human Lispro (HumaLOG INSULIN) 6 units AC SC Last administered on 09/13/18at 12:00; Start 09/07/18 at 17:30 Insulin Human Lispro (HumaLOG INSULIN) SEE PROTOCOL TABLE AC SC Last administered on 09/13/18at 12:23; Start 09/04/18 at 17:30 Levofloxacin (Levaquin) 250 mg DAILY@06 PO Last administered on 09/13/18at 06:15; Start 09/12/18 at 06:00; Stop 09/17/18 at 06:01 Magnesium Hydroxide (Milk Of Magnesia) 30 ml DAILYPRN PRN PO CONSTIPATION; Start 09/04/18 at 16:30 Miscellaneous (Unresolved Clarification Entry) SEE LABEL COMMENTS DAILY XX ; Start 09/10/18 at 09:00; Stop 09/11/18 at 11:29; Status DC Ondansetron HCl (Zofran) 4 mg Q6HP PRN PO NAUSEA; Start 09/04/18 at 16:30 Oxycodone/ Acetaminophen (Percocet 5mg/ 325mg Tablet) 1 tab Q4HP PRN PO MODERATE PAIN (PS 5-7); Start 09/04/18 at 16:30 Oxycodone/ Acetaminophen (Percocet 5mg/ 325mg Tablet) 2 tab Q4HP PRN PO SEVERE PAIN (PS 8-10); Start 09/04/18 at 16:30 Pantoprazole Sodium (Protonix) 40 mg DAILY PO Last administered on 09/13/18at 10:09; Start 09/05/18 at 09:00 Piperacillin Sod/ Tazobactam Sod 3.375 gm/Dextrose 50 ml @ 100 mls/hr Q6H IV ; Start 09/04/18 at 17:00; Stop 09/04/18 at 17:07; Status DC Senna (Senokot) 1 tab QHS PO Last administered on 09/12/18at 22:20; Start at 21:00 Warfarin Sodium (Coumadin) 4 mg DAILY@17 PO Last administered on 09/12/18at 17:26; Start 09/11/18 at 17:00 Warfarin Sodium (Coumadin) 5 mg DAILY@17 PO Last administered on 09/10/18at 17:34; Start 09/04/18 at 17:00; Stop 09/11/18 at 10:35; Status DC GERMAINE AUSTIN MD Sep 13, 2018 15:17
[2018-09-13 20:30] VITALS: BP 106/46
[2018-09-13] MEDS: SENNA 8.6 MG TAB (SENOKOT) PO SCH (21:00)
[2018-09-13] MEDS: FENOFIBRATE 145 MG TAB (TRICOR) PO SCH (21:09)
[2018-09-13] MEDS: EZETIMIBE 10 MG TAB (ZETIA) PO SCH (21:10)
[2018-09-13] MEDS: DIGOXIN 0.125 MG TAB PO SCH (21:10)
[2018-09-13] MEDS: LEVEMIR (INSULIN DETEMIR) 1 UNITS/0.01ML SC SCH (21:10)
[2018-09-14 06:00] VITALS: BP 120/56
[2018-09-14] MEDS: LevoFLOXacin 250 MG TABLET PO SCH (06:38)
[2018-09-14 06:58] LABS: INR 2.65; PROTHROMBIN TIME 28.8 SECONDS (12.1-14.4)
[2018-09-14] MEDS: HumaLOG INSULIN (NovoLOG) PER UNIT SC SCH ×6 (08:08→17:28)
[2018-09-14] MEDS: FERROUS SULFATE 325MG TAB PO SCH ×2 (08:08→20:42)
[2018-09-14] MEDS: FUROSEMIDE 40 MG TAB PO SCH (08:08)
[2018-09-14] MEDS: GABAPENTIN 300 MG CAP PO SCH ×2 (08:08→20:41)
[2018-09-14] MEDS: PANTOPRAZOLE 40MG TAB (PROTONIX) PO SCH (08:08)
[2018-09-14] MEDS: DOCUSATE SODIUM 100 MG CAP PO SCH ×2 (08:09→20:42)
[2018-09-14] MEDS: ESCITALOPRAM OXALATE 5MG TABLET (LEXAPRO) PO SCH (08:09)
[2018-09-14] MEDS: ASPIRIN 81 MG ENTERIC TAB PO SCH (08:09)
--- NOTE | 2018-09-14 12:22 | IPNPDOC ---
Date Seen The patient was seen on 09/14/18. Progress Note HISTORY OF PRESENT ILLNESS: 83-year-old male presenting status post hospital discharge from [facility]. 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 Postoperatively he experienced swelling, anemia, and was treated with IV Zosyn for pneumonia. Prior to this beginning 05/04/18 he underwent a popliteal artery to fibular artery bypass with reverse saphenous grafting and subsequently required amputation of his toes secondary to poor healing and gangrene. Initially he only had his first big toe amputated, however poor healing required amputation of his second and third. Eventually he was admitted to the hospital on 08/25/18 with cellulitis and left foot gangrene subsequently underwent a left-sided BKA. The pt was transferred to [facility] [place] to the care of Dr Chao 09/04/18. He has no complaints at this time. He is OOB to wheelchair and working with PT. 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 No acute distress. Alert and oriented x 3. HEENT: Normocephalic, atraumatic. Sclera are nonicteric. Conjunctiva without injection. No facial asymmetry. Moist mucous membranes. CHEST: Regular rate and rhythm, +S1, +S2 LUNGS: Clear to auscultation bilaterally. No wheezes, rales, or rhonchi. ABD: Round, soft, non-tender, non-distended. +Bowel sounds throughout. No rebound or guarding. No costovertebral angle tenderness. EXT: Trace Rt lower extremity edema appreciated. S/P Lt BKA, dressing intact. SKIN: [place], dry, warm. No rashes. NEURO: No focal deficits appreciated. A&P: 83-year-old male presenting status post hospital discharge from [facility]. Patient is a poor historian, much information is obtained from the chart. 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 Postoperatively he experienced swelling, anemia, and was treated with IV Zosyn for pneumonia. Prior to this beginning 05/04/18 he underwent a popliteal artery to fibular artery bypass with reverse saphenous grafting and subsequently required amputation of his toes secondary to poor healing and gangrene. Initially he only had his first big toe amputated, however poor healing required amputation of his second and third. Eventually he was admitted to the hospital on 08/25/18 with cellulitis and left foot gangrene subsequently underwent a left-sided BKA. The pt was transferred to [facility] to the care of Dr Chao 09/04/18. 1. Left-sided below-knee amputation. H/O PAD/history of occluded bypass graft. The patient was treated empirically with vancomycin during [facility] stay for suspe cted methicillin-resistant Staphylococcus aureus (MRSA) wound inflection. Mgmt as per [facility]U. Wound care as per ARU. Outpt F/U with vascular surgery. PT/OT as per ARU Pain control as per ARU. Bowel care as per ARU. Disposition as per ARU. 2. Diabetes. CC diet SSI Levemir Adjustments as per Dr Chao. 3. Diastolic dysfunction. No signs of fluid overload currently. Continue Lasix 40 mg by mouth daily. Monitor. 4. Hypertension. BP 120/56. Continue Lasix po. 5. Atrial fibrillation. Rate control digoxin Anticoagulation, warfarin 4 mg daily. The patient's INR is 2.65. Monitor PT/INR. 6. CKD3 Basleine appears to be 1.5-1.6 SCr 1.68. Monitor. 7. History of transient ischemic attack (TIA). aspirin 81 mg daily. Coumadin as above. According to the record, the patient is intolerant of statin. 8. Diabetic neuropathy. Gabapentin. 9. UTI. Levaquin renally dosed as per Dr Chao. VS, I&O, 24H, Fishbone Vital Signs/I&O Vital Signs Date Time Temp Pulse Resp B/P (MAP) Pulse Ox O2 Delivery O2 Flow Rate FiO2 09/14/18 06:00 98.2 58 18 120/56 (77) 95 Room Air I&O- Last 24 Hours up to 6 AM 09/14/18 06:00 Intake Total 1980 ml Output Total 600 ml Balance 1380 ml Laboratory Data 24H LABS Laboratory Tests 2 09/13/18 21:08: Bedside Glucose (Misc Panel) 281H 09/14/18 05:55: Prothrombin Time 28.8H, Prothromb Time International Ratio 2.65 09/14/18 06:36: Bedside Glucose (Misc Panel) 180H 09/14/18 12:09: Bedside Glucose (Misc Panel) 225H Microbiology Microbiology 09/10/18 Urine Culture - Final, Complete Escherichia Coli 09/05/18 Urine Culture - Final, Complete Escherichia Coli Nia Epperson Sep 14, 2018 12:22
[2018-09-14 14:00] VITALS: BP 136/65
[2018-09-14] MEDS: WARFARIN SOD 2 MG TAB PO SCH (17:28)
[2018-09-14 20:00] VITALS: BP 109/55
[2018-09-14] MEDS: DIGOXIN 0.125 MG TAB PO SCH (20:41)
[2018-09-14] MEDS: EZETIMIBE 10 MG TAB (ZETIA) PO SCH (20:41)
[2018-09-14] MEDS: FENOFIBRATE 145 MG TAB (TRICOR) PO SCH (20:42)
[2018-09-14] MEDS: LEVEMIR (INSULIN DETEMIR) 1 UNITS/0.01ML SC SCH (20:42)
[2018-09-14] MEDS: SENNA 8.6 MG TAB (SENOKOT) PO SCH (20:42)
[2018-09-15 06:00] VITALS: BP 116/56
[2018-09-15] MEDS: LevoFLOXacin 250 MG TABLET PO SCH (06:13)
[2018-09-15 07:07] LABS: HEMATOCRIT 27.6 % (42.0-52.0); HEMOGLOBIN 9.1 g/dl (13.5-17.5); MEAN CORPUSCULAR HEMOGLOBIN 30.7 pg (27.0-33.0); MEAN CORPUSCULAR VOLUME 93.2 fl (80.0-96.0); PLATELET COUNT, AUTOMATED 181 10^3/uL (150-450); RED BLOOD COUNT 2.96 10^6/uL (4.30-6.10)
[2018-09-15 07:21] LABS: INR 2.64; PROTHROMBIN TIME 28.7 SECONDS (12.1-14.4)
[2018-09-15] MEDS: HumaLOG INSULIN (NovoLOG) PER UNIT SC SCH ×6 (07:30→17:19)
[2018-09-15 07:31] LABS: CALCIUM LEVEL 8.8 MG/DL (8.8-10.2); CREATININE FOR GFR 1.85 MG/DL (0.70-1.30); GLOMERULAR FILTRATION RATE 37.4 (>35)
[2018-09-15] MEDS: ESCITALOPRAM OXALATE 5MG TABLET (LEXAPRO) PO SCH (08:35)
[2018-09-15] MEDS: ASPIRIN 81 MG ENTERIC TAB PO SCH (08:35)
[2018-09-15] MEDS: FERROUS SULFATE 325MG TAB PO SCH ×2 (08:35→20:46)
[2018-09-15] MEDS: PANTOPRAZOLE 40MG TAB (PROTONIX) PO SCH (08:35)
[2018-09-15] MEDS: DOCUSATE SODIUM 100 MG CAP PO SCH ×2 (08:35→20:50)
[2018-09-15] MEDS: GABAPENTIN 300 MG CAP PO SCH ×2 (08:35→20:46)
[2018-09-15] MEDS: FUROSEMIDE 40 MG TAB PO SCH (08:36)
--- NOTE | 2018-09-15 11:04 | IPNPDOC ---
Date Seen The patient was seen on 09/15/18. Progress Note HISTORY OF PRESENT ILLNESS: 83-year-old male presenting status post hospital discharge from [facility] [place]. 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 Postoperatively he experienced swelling, anemia, and was treated with IV Zosyn for pneumonia. Prior to this beginning 05/04/18 he underwent a popliteal artery to fibular a rtery bypass with reverse saphenous grafting and subsequently required amputation of his toes secondary to poor healing and gangrene. Initially he only had his first big toe amputated, however poor healing required amputation of his second and third. Eventually he was admitted to the hospital on 08/25/18 with cellulitis and left foot gangrene subsequently underwent a left-sided BKA. [facility] to the care of Dr Chao 09/04/18. He has no complaints at this time. He is OOB to wheelchair and working with PT. Family at bedside. No verbalized concerns. 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 No acute distress. Alert and oriented x 3. HEENT: Normocephalic, atraumatic. Sclera are nonicteric. Conjunctiva without injection. No facial asymmetry. Moist mucous membranes. CHEST: Regular rate and rhythm, +S1, +S2 LUNGS: Clear to auscultation bilaterally. No wheezes, rales, or rhonchi. ABD: Round, soft, non-tender, non-distended. +Bowel sounds throughout. No rebound or guarding. No costovertebral angle tenderness. EXT: Trace Rt lower extremity edema appreciated/TEDS applied. S/P Lt BKA, dressing intact. SKIN: [place], dry, warm. No rashes. NEURO: No focal deficits appreciated. A&P: 83-year-old male presenting status post hospital discharge from [facility] [place]. Patient is a poor historian, much information is obtained from the chart. 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 Postoperatively he experienced swelling, anemia, and was treated with IV Zosyn for pneumonia. Prior to this beginning 05/04/18 he underwent a popliteal artery to fibular artery bypass with reverse saphenous grafting and subsequently required amputation of his toes secondary to poor healing and gangrene. Initially he only had his first big toe amputated, however poor healing required amputation of his second and third. Eventually he was admitted to the hospital on 08/25/18 with cellulitis and left foot gangrene subsequently underwent a left-sided BKA. The p t was transferred to [facility] to the care of Dr Chao 09/04/18. 1. Left-sided below-knee amputation. H/O PAD/history of occluded bypass graft. The patient was treated empirically with vancomycin during [facility] stay for suspected methicillin-resistant Staphylococcus aureus (MRSA) wound inflection. Mgmt as per [facility]. Wound care as per ARU. Outpt F/U with vascular surgery. PT/OT Pain control. Bowel care 2. Diabetes. CC diet SSI Levemir 3. Diastolic dysfunction. No fluid overload currently. Continue Lasix 40 mg by mouth daily. Monitor. 4. Hypertension. Currently, blood pressure is in satisfactory range. Lasix po. 5. Atrial fibrillation. Rate control digoxin Anticoagulation, warfarin. The patient's INR is 2.77. Monitor PT/INR. 6. Chronic kidney disease, continue to monitor. SCr baseline appears to be 1.5-1.6. 1.85 this AM. D/C levaquin. BMP in AM. 7. History of transient ischemic attack (TIA) on aspirin. According to the record, the patient is intolerant of statin. 8. Diabetic neuropathy on gabapentin. 9. UTI. E Coli 50,000 CFU as per UC 09/13/17. Levaquin po renally dosed D4/7 but sensitivities indicate resistance. Repeat UA with reflex culture. Possibly consider Cefdinir pending results. VS, I&O, 24H, Fishbone Vital Signs/I&O Vital Signs Date Time Temp Pulse Resp B/P (MAP) Pulse Ox O2 Delivery O2 Flow Rate FiO2 09/15/18 06:00 98.3 59 18 116/56 (76) 92 Room Air I&O- Last 24 Hours up to 6 AM 09/15/18 06:00 Intake Total 1860 ml Output Total 0 ml Balance 1860 ml Laboratory Data 24H LABS Laboratory Tests 2 09/14/18 12:09: Bedside Glucose (Misc Panel) 225H 09/14/18 16:44: Bedside Glucose (Misc Panel) 236H 09/14/18 20:19: Bedside Glucose (Misc Panel) 213H 09/15/18 06:17: Bedside Glucose (Misc Panel) 220H 09/15/18 06:43: Nucleated Red Blood Cells % (auto) 0.0, Prothrombin Time 28.7H, Prothromb Time International Ratio 2.64, Anion Gap 10, Glomerular Filtration Rate 37.4, Blood Urea Nitrogen 39H, Creatinine 1.85H, Sodium Level 141, Potassium Level 4.0, Chloride Level 106, Carbon Dioxide Level 25, Calcium Level 8.8 CBC/BMP Laboratory Tests 09/15/18 06:43 Red Blood Count 2.96 L, Mean Corpuscular Volume 93.2, Mean Corpuscular Hemoglobin 30.7, Mean Corpuscular Hemoglobin Concent 33.0, Red Cell Distribution Width 15.3 H, Calcium Level 8.8 Microbiology Microbiology 09/10/18 Urine Culture - Final, Complete Escherichia Coli 09/05/18 Urine Culture - Final, Complete Escherichia Coli Nia Epperson Sep 15, 2018 11:04
[2018-09-15 14:00] VITALS: BP 112/54
--- NOTE | 2018-09-15 15:18 | IPNPDOC ---
PM&R Progress Note DATE OF SERVICE: Sep 14, 2018 Physician Specialist Progress Note Subjective: Patient seen in his room reporting after breakfast reporting he felt ok, no diarrhea, dysuria, fevers or chills. REVIEW OF SYSTEMS: The following is a completed review of systems and has been reviewed. Review of systems otherwise unremarkable. PAIN: Patient self reports no pain EYES: Negative for recent vision changes. EARS, NOSE, & THROAT:+NULATO, no dysphagia or rhinorrhea CARDIOVASCULAR: denies chest pain or palpitations PULMONARY: Negative. Denies shortness of breath GASTROINTESTINAL: Negative for constipation or diarrhea GENITOURINARY: Negative for dysuria MUSCULOSKELETAL: left BKA NEUROLOGICAL: +distal neuropathy HEMATOLOGICAL: bilat UE ecchymosis SKIN: left BKA incision PSYCHIATRIC: Unremarkable All other review of systems found to be negative. PHYSICAL EXAMINATION: VITAL SIGNS: Please see below. GENERAL: Pleasant and cooperative. No acute distress. HEENT: PERRL. Extraocular movements intact. Clear conjunctiva, +glasses CARDIOVASCULAR: Irregular rate and rhythm. No murmurs, rubs, or gallops LUNGS: Clear to auscultation bilaterally. No wheezes. No rhonchi ABDOMEN: Soft, nontender, nondistended. Positive bowel sounds. Normal active bowel sounds NEUROLOGICAL: Alert and oriented times three. Cranial nerves II through XII grossly intact. Sensation grossly intact except diminished right LE EXTREMITIES: 5-\5 strength bilateral upper extremities.5-\5 strength right hip flexors and knee extensors, 2/5 ankle DF and 0/5 EHL 5-/5 strength in left hip flexors, knee extensors and flexors lower extremity. . SKIN: left residual limb with sutures and kennedy, mild erythema, minimal swelling, +sternotomy scar +right foot D1 black (blood filled) blister, does not appear to be a pressure ulcer or DTI ASSESSMENT:84-year-old M with past medical history of CAD, DM, PAD who presents status post Left BKA. PLAN: 1. Rehab: PT, OT, assess for DME, keep residual limb in extension to prevent flexion contracture, transfers gradually improving with slide board, improving toilet transfers 2. Neuro: stable, hx of TIAs, continue ASA and statin for secondary stroke prevention- monitor BPs and adjust meds prn 3. CArdio: pmh Afic, AVR and mitral valve repair, with chronic diastolic CHF- continue digoxin, Coumadin, and lasix- medicine consulted 4. 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 Endo: pmh uncontrolled DM continue insulin coverage and adjust, consider restarting oral agents 6. ID: s/p recent course of IV ZOsyn and VAnco, monitor for infection- stable 7. : admission UA negative, however Ux + E. coli, repeat UA with trace LE, also + E.coli, will switch to Cefdinir as not sensitive to Levaquin 8. DVT ppx: on Coumadin 9. GI ppx: Protonix 10. Skin: daily dressing changes, monitor right foot D1 blister, apply skin prep 11. Dispo: was scheduled for 09-20-18 however having difficulty with safety awareness will post-pone d/c Allergies Coded Allergies: Statins (Unverified Adverse Reaction, Mild, LEGS FEEL HEAVY, 09/04/18) Vital Signs Vital Signs Date Time Temp Pulse Resp B/P (MAP) Pulse Ox O2 Delivery O2 Flow Rate FiO2 09/15/18 14:00 97.9 89 18 112/54 (73) 97 Room Air Laboratory Data CBC/BMP Laboratory Tests 09/15/18 06:43 Red Blood Count 2.96 L, Mean Corpuscular Volume 93.2, Mean Corpuscular Hemoglobin 30.7, Mean Corpuscular Hemoglobin Concent 33.0, Red Cell Distribution Width 15.3 H, Calcium Level 8.8 Labs 24H Laboratory Tests 2 09/14/18 16:44: Bedside Glucose (Misc Panel) 236H 09/14/18 20:19: Bedside Glucose (Misc Panel) 213H 09/15/18 06:17: Bedside Glucose (Misc Panel) 220H 09/15/18 06:43: Nucleated Red Blood Cells % (auto) 0.0, Prothrombin Time 28.7H, Prothromb Time International Ratio 2.64, Anion Gap 10, Glomerular Filtration Rate 37.4, Blood Urea Nitrogen 39H, Creatinine 1.85H, Sodium Level 141, Potassium Level 4.0, Chloride Level 106, Carbon Dioxide Level 25, Calcium Level 8.8 09/15/18 11:31: Bedside Glucose (Misc Panel) 153H Microbiology Microbiology 09/10/18 Urine Culture - Final, Complete Escherichia Coli 09/05/18 Urine Culture - Final, Complete Escherichia Coli Current Medications Current Medications Current Medications Acetaminophen (Tylenol Tab) 650 mg Q4HP PRN PO fever/MILD PAIN (PS 1-4) Last administered on 09/09/18 20:28; Start 09/04/18 at 16:30 Albuterol/ Ipratropium (Duoneb (Ipr 0.5mg/Alb 2.5mg)) 3 ml Q6HP PRN NEB SOB/WHEEZING; Start 09/04/18 at 17:00 Aspirin (Ecotrin) 81 mg DAILY PO Last administered on 09/15/18 08:35; Start 09/05/18 at 09:00 Bisacodyl (Dulcolax Suppository) [address] CONSTIPATION; Start 09/04/18 at 16:30 Dextrose (Dextrose 50%) 25 ml ASDIRECTED PRN IV SEE LABEL COMMENTS; Start 09/04/18 at 17:00 Diazepam (Valium) 2 mg Q8HP PRN PO spasm; Start 09/04/18 at 17:00; Stop at 11:26; Status DC Digoxin (Lanoxin) 0.125 mg DAILY@2100 PO Last administered on 09/14/18 20:41; Start 09/04/18 at 21:00 Docusate Sodium (Colace) 100 mg BID PO Last administered on 09/15/18 08:35; Start 09/04/18 at 21:00 Doxycycline Hyclate (Vibramycin) 100 mg BID PO ; Start 09/04/18 at 21:00; Stop 09/04/18 at 21:00; Status DC Escitalopram Oxalate (Lexapro) 5 mg DAILY PO Last administered on 09/15/18 08:35; Start 09/05/18 at 09:00 EZETIMIBE (Zetia) 10 mg QHS PO Last administered on 09/14/18 20:41; Start 09/04/18 at 21:00 Fenofibrate (Tricor) 145 mg DAILY@2100 PO Last administered on 09/14/18 20:42; Start 09/04/18 at 21:00 Ferrous Sulfate (Ferrous Sulfate) 325 mg BID PO Last administered on 09/15/18 08:35; Start 09/04/18 at 21:00 Furosemide (Lasix) 40 mg DAILY PO Last administered on 09/15/18at 08:36; Start 09/05/18 at 09:00 Gabapentin (Neurontin) 300 mg BID PO Last administered on 09/15/18at 08:35; Start 09/04/18 at 21:00 Glucagon (Glucagon) 1 mg ASDIRECTED PRN SC SEE LABEL COMMENTS; Start 09/04/18 at 17:00 Glucose (Glucose) 16 GM ASDIRECTED PRN PO SEE LABEL COMMENTS; Start 09/04/18 at 17:00 Home Med (Med Rec Complete!) ASDIRECTED XX ; Start 09/04/18 at 13:30; Stop 09/04/18 at 13:30; Status DC Insulin Detemir (Levemir Insulin) 20 units QHS SC Last administered on 09/06/18at 21:03; Start 09/04/18 at 21:00; Stop 09/07/18 at 10:24; Status DC Insulin Detemir (Levemir Insulin) 24 units QHS SC Last administered on 09/12/18at 22:19; Start 09/07/18 at 21:00; Stop 09/13/18 at 15:13; Status DC Insulin Detemir (Levemir Insulin) 28 units QHS SC Last administered on 09/14/18at 20:42; Start 09/13/18 at 21:00 Insulin Human Lispro (HumaLOG INSULIN) 2 units AC SC Last administered on 09/07/18at 07:26; Start 09/06/18 at 07:30; Stop 09/07/18 at 10:24; Status DC Insulin Human Lispro (HumaLOG INSULIN) 4 units AC SC Last administered on 09/07/18at 12:43; Start 09/07/18 at 12:00; Stop 09/07/18 at 15:04; Status DC Insulin Human Lispro (HumaLOG INSULIN) 6 units AC SC Last administered on 09/13/18at 12:00; Start 09/07/18 at 17:30; Stop 09/13/18 at 15:13; Status DC Insulin Human Lispro (HumaLOG INSULIN) 10 units AC SC Last administered on 09/15/18at 12:00; Start 09/13/18 at 17:30 Insulin Human Lispro (HumaLOG INSULIN) SEE PROTOCOL TABLE AC SC Last administered on 09/15/18at 13:04; Start 09/04/18 at 17:30 Levofloxacin (Levaquin) 250 mg DAILY@06 PO Last administered on 09/15/18at 06:13; Start 09/12/18 at 06:00; Stop 09/15/18 at 11:05; Status DC Magnesium Hydroxide (Milk Of Magnesia) 30 ml DAILYPRN PRN PO CONSTIPATION; Start 09/04/18 at 16:30 Miscellaneous (Unresolved Clarification Entry) SEE LABEL COMMENTS DAILY XX ; Start 09/10/18 at 09:00; Stop 09/11/18 at 11:29; Status DC Ondansetron HCl (Zofran) 4 mg Q6HP PRN PO NAUSEA; Start 09/04/18 at 16:30 Oxycodone/ Acetaminophen (Percocet 5mg/ 325mg Tablet) 1 tab Q4HP PRN PO MODERATE PAIN (PS 5-7); Start 09/04/18 at 16:30 Oxycodone/ Acetaminophen (Percocet 5mg/ 325mg Tablet) 2 tab Q4HP PRN PO SEVERE PAIN (PS 8-10); Start 09/04/18 at 16:30 Pantoprazole Sodium (Protonix) 40 mg DAILY PO Last administered on 09/15/18at 08:35; Start 09/05/18 at 09:00 Piperacillin Sod/ Tazobactam Sod 3.375 gm/Dextrose 50 ml @ 100 mls/hr Q6H IV ; Start 09/04/18 at 17:00; Stop 09/04/18 at 17:07; Status DC Senna (Senokot) 1 tab QHS PO Last administered on 09/12/18at 22:20; Start 09/04/18 at 21:00 Warfarin Sodium (Coumadin) 4 mg DAILY@17 PO Last administered on 09/14/18at 17:28; Start 09/11/18 at 17:00 Warfarin Sodium (Coumadin) 5 mg DAILY@17 PO Last administered on 09/10/18at 17:34; Start 09/04/18 at 17:00; Stop 09/11/18 at 10:35; Status DC GERMAINE [place] MD Sep 15, 2018 15:18
--- NOTE | 2018-09-15 15:19 | IPNPDOC ---
PM&R Progress Note DATE OF SERVICE: Sep 15, 2018 Resident Services Manager Progress Note Subjective: Patient seen in his room with and family who are going to be taught how to wrap his limb. REVIEW OF SYSTEMS: The following is a completed review of systems and has been reviewed. Review of systems otherwise unremarkable. PAIN: Patient self reports no pain EYES: Negative for recent vision changes. EARS, NOSE, & THROAT:+[place], no dysphagia or rhinorrhea CARDIOVASCULAR: denies chest pain or palpitations PULMONARY: Negative. Denies shortness of breath GASTROINTESTINAL: Negative for constipation or diarrhea GENITOURINARY: Negative for dysuria MUSCULOSKELETAL: left BKA NEUROLOGICAL: +distal neuropathy HEMATOLOGICAL: bilat UE ecchymosis SKIN: left BKA incision PSYCHIATRIC: Unremarkable All other review of systems found to be negative. PHYSICAL EXAMINATION: VITAL SIGNS: Please see below. GENERAL: Pleasant and cooperative. No acute distress. HEENT: PERRL. Extraocular movements intact. Clear conjunctiva, +glasses CARDIOVASCULAR: Irregular rate and rhythm. No murmurs, rubs, or gallops LUNGS: Clear to auscultation bilaterally. No wheezes. No rhonchi ABDOMEN: Soft, nontender, nondistended. Positive bowel sounds. Normal active bowel sounds NEUROLOGICAL: Alert and oriented times three. Cranial nerves II through XII grossly intact. Sensation grossly intact except diminished right LE EXTREMITIES: 5-\5 strength bilateral upper extremities.5-\5 strength right hip flexors and knee extensors, 2/5 ankle DF and 0/5 EHL 5-/5 strength in left hip flexors, knee extensors and flexors lower extremity. . SKIN: left residual limb with sutures and kennedy, mild erythema, minimal swelling, +sternotomy scar +right foot D1 black (blood filled) blister, does not appear to be a pressure ulcer or DTI ASSESSMENT:84-year-old M with past medical history of CAD, DM, PAD who presents status post Left BKA. PLAN: 1. Rehab: PT, OT, assess for DME, keep residual limb in extension to prevent flexion contracture, transfers gradually improving with slide board, improving toilet transfers 2. Neuro: stable, hx of TIAs, continue ASA and statin for secondary stroke prevention- monitor BPs and adjust meds prn 3. CArdio: pmh Afic, AVR and mitral valve repair, with chronic diastolic CHF- continue digoxin, Coumadin, and lasix- medicine consulted, recs apprecaited 4. 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 Endo: pmh uncontrolled DM continue insulin coverage and adjust, consider restarting oral agents 6. ID: s/p recent course of IV ZOsyn and VAnco, monitor for infection- stable 7. : admission UA negative, however Ux + E. coli, repeat UA with trace LE, also + E.coli, continue Cefdinir 8. DVT ppx: on Coumadin 9. GI ppx: Protonix 10. Skin: daily dressing changes, monitor right foot D1 blister, apply skin prep 11. Dispo: was scheduled for 09-20-18 however having difficulty with safety awareness will post-pone d/c Allergies Coded Allergies: Statins (Unverified Adverse Reaction, Mild, LEGS FEEL HEAVY, 09/04/18) Vital Signs Vital Signs Date Time Temp Pulse Resp B/P (MAP) Pulse Ox O2 Delivery O2 Flow Rate FiO2 09/15/18 14:00 97.9 89 18 112/54 (73) 97 Room Air Laboratory Data CBC/BMP Laboratory Tests 09/15/18 06:43 Red Blood Count 2.96 L, Mean Corpuscular Volume 93.2, Mean Corpuscular Hemoglobin 30.7, Mean Corpuscular Hemoglobin Concent 33.0, Red Cell Distribution Width 15.3 H, Calcium Level 8.8 Labs 24H Laboratory Tests 2 09/14/18 16:44: Bedside Glucose (Misc Panel) 236H 09/14/18 20:19: Bedside Glucose (Misc Panel) 213H 09/15/18 06:17: Bedside Glucose (Misc Panel) 220H 09/15/18 06:43: Nucleated Red Blood Cells % (auto) 0.0, Prothrombin Time 28.7H, Prothromb Time International Ratio 2.64, Anion Gap 10, Glomerular Filtration Rate 37.4, Blood Urea Nitrogen 39H, Creatinine 1.85H, Sodium Level 141, Potassium Level 4.0, Chloride Level 106, Carbon Dioxide Level 25, Calcium Level 8.8 09/15/18 11:31: Bedside Glucose (Misc Panel) 153H Microbiology Microbiology 09/10/18 Urine Culture - Final, Complete Escherichia Coli 09/05/18 Urine Culture - Final, Complete Escherichia Coli Current Medications Current Medications Current Medications Acetaminophen (Tylenol Tab) 650 mg Q4HP PRN PO fever/MILD PAIN (PS 1-4) Last administered on 09/09/18 20:28; Start 09/04/18 at 16:30 Albuterol/ Ipratropium (Duoneb (Ipr 0.5mg/Alb 2.5mg)) 3 ml Q6HP PRN NEB SOB/WHEEZING; Start 09/04/18 at 17:00 Aspirin (Ecotrin) 81 mg DAILY PO Last administered on 09/15/18 08:35; Start 09/05/18 at 09:00 Bisacodyl (Dulcolax Suppository) 10 mg DAILYPRN PRN [place] CONSTIPATION; Start 09/04/18 at 16:30 Dextrose (Dextrose 50%) 25 ml ASDIRECTED PRN IV SEE LABEL COMMENTS; Start 09/04/18 at 17:00 Diazepam (Valium) 2 mg Q8HP PRN PO spasm; Start 09/04/18 at 17:00; Stop 09/11/18 at 11:26; Status DC Digoxin (Lanoxin) 0.125 mg DAILY@2100 PO Last administered on 09/14/18 20:41; Start 09/04/18 at 21:00 Docusate Sodium (Colace) 100 mg BID PO Last administered on 09/15/18 08:35; Start 09/04/18 at 21:00 Doxycycline Hyclate (Vibramycin) 100 mg BID PO ; Start 09/04/18 at 21:00; Stop 09/04/18 at 21:00; Status DC Escitalopram Oxalate (Lexapro) 5 mg DAILY PO Last administered on 09/15/18 08:35; Start 09/05/18 at 09:00 EZETIMIBE (Zetia) 10 mg QHS PO Last administered on 09/14/18 20:41; Start at 21:00 Fenofibrate (Tricor) 145 mg DAILY@2100 PO Last administered on 09/14/18 20:42; Start 09/04/18 at 21:00 Ferrous Sulfate (Ferrous Sulfate) 325 mg BID PO Last administered on 09/15/18 08:35; Start 09/04/18 at 21:00 Furosemide (Lasix) 40 mg DAILY PO Last administered on 09/15/18at 08:36; Start 09/05/18 at 09:00 Gabapentin (Neurontin) 300 mg BID PO Last administered on 09/15/18at 08:35; Start 09/04/18 at 21:00 Glucagon (Glucagon) 1 mg ASDIRECTED PRN SC SEE LABEL COMMENTS; Start 09/04/18 at 17:00 Glucose (Glucose) 16 GM ASDIRECTED PRN PO SEE LABEL COMMENTS; Start 09/04/18 at 17:00 Home Med (Med Rec Complete!) ASDIRECTED XX ; Start 09/04/18 at 13:30; Stop 09/04/18 at 13:30; Status DC Insulin Detemir (Levemir Insulin) 20 units QHS SC Last administered on 09/06/18at 21:03; Start 09/04/18 at 21:00; Stop 09/07/18 at 10:24; Status DC Insulin Detemir (Levemir Insulin) 24 units QHS SC Last administered on 09/12/18at 22:19; Start 09/07/18 at 21:00; Stop 09/13/18 at 15:13; Status DC Insulin Detemir (Levemir Insulin) 28 units QHS SC Last administered on 09/14/18at 20:42; Start 09/13/18 at 21:00 Insulin Human Lispro (HumaLOG INSULIN) 2 units AC SC Last administered on at 07:26; Start 09/06/18 at 07:30; Stop 09/07/18 at 10:24; Status DC Insulin Human Lispro (HumaLOG INSULIN) 4 units AC SC Last administered on 09/07/18at 12:43; Start 09/07/18 at 12:00; Stop 09/07/18 at 15:04; Status DC Insulin Human Lispro (HumaLOG INSULIN) 6 units AC SC Last administered on 09/13/18at 12:00; Start 09/07/18 at 17:30; Stop 09/13/18 at 15:13; Status DC Insulin Human Lispro (HumaLOG INSULIN) 10 units AC SC Last administered on 09/15/18at 12:00; Start 09/13/18 at 17:30 Insulin Human Lispro (HumaLOG INSULIN) SEE PROTOCOL TABLE AC SC Last administered on 1/11/19at 13:04; Start 09/04/18 at 17:30 Levofloxacin (Levaquin) 250 mg DAILY@06 PO Last administered on 09/15/18at 06:13; Start 09/12/18 at 06:00; Stop 09/15/18 at 11:05; Status DC Magnesium Hydroxide (Milk Of Magnesia) 30 ml DAILYPRN PRN PO CONSTIPATION; Start 09/04/18 at 16:30 Miscellaneous (Unresolved Clarification Entry) SEE LABEL COMMENTS DAILY XX ; Start 09/10/18 at 09:00; Stop 09/11/18 at 11:29; Status DC Ondansetron HCl (Zofran) 4 mg Q6HP PRN PO NAUSEA; Start 09/04/18 at 16:30 Oxycodone/ Acetaminophen (Percocet 5mg/ 325mg Tablet) 1 tab Q4HP PRN PO MODERATE PAIN (PS 5-7); Start 09/04/18 at 16:30 Oxycodone/ Acetaminophen (Percocet 5mg/ 325mg Tablet) 2 tab Q4HP PRN PO SEVERE PAIN (PS 8-10); Start 09/04/18 at 16:30 Pantoprazole Sodium (Protonix) 40 mg DAILY PO Last administered on 09/15/18at 08:35; Start 09/05/18 at 09:00 Piperacillin Sod/ Tazobactam Sod 3.375 gm/Dextrose 50 ml @ 100 mls/hr Q6H IV ; Start 09/04/18 at 17:00; Stop 09/04/18 at 17:07; Status DC Senna (Senokot) 1 tab QHS PO Last administered on 09/12/18at 22:20; Start 09/04/18 at 21:00 Warfarin Sodium (Coumadin) 4 mg DAILY@17 PO Last administered on 09/14/18at 17:28; Start 09/11/18 at 17:00 Warfarin Sodium (Coumadin) 5 mg DAILY@17 PO Last administered on 09/10/18at 17:34; Start 09/04/18 at 17:00; Stop 09/11/18 at 10:35; Status DC GERMAINE AUSTIN MD Sep 15, 2018 15:19
[2018-09-15] MEDS: WARFARIN SOD 2 MG TAB PO SCH (17:18)
[2018-09-15 20:00] VITALS: BP 138/63
[2018-09-15] MEDS: EZETIMIBE 10 MG TAB (ZETIA) PO SCH (20:46)
[2018-09-15] MEDS: CEFDINIR 300 MG CAP (OMNICEF) PO SCH (20:46)
[2018-09-15] MEDS: FENOFIBRATE 145 MG TAB (TRICOR) PO SCH (20:47)
[2018-09-15] MEDS: DIGOXIN 0.125 MG TAB PO SCH (20:47)
[2018-09-15] MEDS: SENNA 8.6 MG TAB (SENOKOT) PO SCH (20:50)
[2018-09-15] MEDS: LEVEMIR (INSULIN DETEMIR) 1 UNITS/0.01ML SC SCH (20:50)
[2018-09-16 06:00] VITALS: BP 119/59
[2018-09-16 06:48] LABS: HEMATOCRIT 26.5 % (42.0-52.0); HEMOGLOBIN 8.8 g/dl (13.5-17.5); MEAN CORPUSCULAR HEMOGLOBIN 30.6 pg (27.0-33.0); MEAN CORPUSCULAR HGB CONC 33.2 g/dl (32.0-36.5); PLATELET COUNT, AUTOMATED 177 10^3/uL (150-450); RED BLOOD COUNT 2.88 10^6/uL (4.30-6.10); WHITE BLOOD COUNT 6.4 10^3/uL (4.0-10.0)
[2018-09-16 06:59] LABS: INR 2.71; PROTHROMBIN TIME 29.4 SECONDS (12.1-14.4)
[2018-09-16 07:03] LABS: CALCIUM LEVEL 8.5 MG/DL (8.8-10.2); CREATININE FOR GFR 1.63 MG/DL (0.70-1.30); GLOMERULAR FILTRATION RATE 43.2 (>35); POTASSIUM SERUM 4.1 MEQ/L (3.5-5.1)
[2018-09-16] MEDS: HumaLOG INSULIN (NovoLOG) PER UNIT SC SCH ×6 (07:50→17:28)
[2018-09-16] MEDS: PANTOPRAZOLE 40MG TAB (PROTONIX) PO SCH (07:51)
[2018-09-16] MEDS: ESCITALOPRAM OXALATE 5MG TABLET (LEXAPRO) PO SCH (07:51)
[2018-09-16] MEDS: ASPIRIN 81 MG ENTERIC TAB PO SCH (07:51)
[2018-09-16] MEDS: CEFDINIR 300 MG CAP (OMNICEF) PO SCH ×2 (07:51→20:20)
[2018-09-16] MEDS: FUROSEMIDE 40 MG TAB PO SCH (07:52)
[2018-09-16] MEDS: FERROUS SULFATE 325MG TAB PO SCH ×2 (07:52→20:20)
[2018-09-16] MEDS: GABAPENTIN 300 MG CAP PO SCH ×2 (07:52→20:20)
[2018-09-16] MEDS: DOCUSATE SODIUM 100 MG CAP PO SCH ×2 (07:52→20:20)
[2018-09-16 14:00] VITALS: BP 106/53
[2018-09-16] MEDS: WARFARIN SOD 2 MG TAB PO SCH (17:26)
[2018-09-16 20:00] VITALS: BP 100/55
[2018-09-16] MEDS: FENOFIBRATE 145 MG TAB (TRICOR) PO SCH (20:19)
[2018-09-16] MEDS: DIGOXIN 0.125 MG TAB PO SCH (20:20)
[2018-09-16] MEDS: EZETIMIBE 10 MG TAB (ZETIA) PO SCH (20:20)
[2018-09-16] MEDS: SENNA 8.6 MG TAB (SENOKOT) PO SCH (20:20)
[2018-09-16] MEDS: LEVEMIR (INSULIN DETEMIR) 1 UNITS/0.01ML SC SCH (20:21)
[2018-09-17 06:00] VITALS: BP 124/60
[2018-09-17 06:17] LABS: INR 2.67
[2018-09-17] MEDS: HumaLOG INSULIN (NovoLOG) PER UNIT SC SCH ×6 (07:23→17:18)
[2018-09-17] MEDS: FERROUS SULFATE 325MG TAB PO SCH ×2 (07:24→21:07)
[2018-09-17] MEDS: ASPIRIN 81 MG ENTERIC TAB PO SCH (07:24)
[2018-09-17] MEDS: PANTOPRAZOLE 40MG TAB (PROTONIX) PO SCH (07:24)
[2018-09-17] MEDS: FUROSEMIDE 40 MG TAB PO SCH (07:24)
[2018-09-17] MEDS: CEFDINIR 300 MG CAP (OMNICEF) PO SCH ×2 (07:24→21:07)
[2018-09-17] MEDS: ESCITALOPRAM OXALATE 5MG TABLET (LEXAPRO) PO SCH (07:24)
[2018-09-17] MEDS: DOCUSATE SODIUM 100 MG CAP PO SCH ×2 (07:24→21:07)
[2018-09-17] MEDS: GABAPENTIN 300 MG CAP PO SCH ×2 (07:24→21:07)
[2018-09-17 14:00] VITALS: BP 109/54
[2018-09-17] MEDS: WARFARIN SOD 2 MG TAB PO SCH (17:19)
[2018-09-17 20:00] VITALS: BP 112/56
[2018-09-17] MEDS: LEVEMIR (INSULIN DETEMIR) 1 UNITS/0.01ML SC SCH (21:06)
[2018-09-17] MEDS: FENOFIBRATE 145 MG TAB (TRICOR) PO SCH (21:07)
[2018-09-17] MEDS: SENNA 8.6 MG TAB (SENOKOT) PO SCH (21:07)
[2018-09-17] MEDS: DIGOXIN 0.125 MG TAB PO SCH (21:07)
[2018-09-17] MEDS: EZETIMIBE 10 MG TAB (ZETIA) PO SCH (21:07)
[2018-09-17] MEDS: ACETAMINOPHEN TAB 650MG DOSE (2X325MG) PO PRN (22:28)
[2018-09-18 06:00] VITALS: BP 126/59
[2018-09-18 06:35] LABS: INR 2.52; PROTHROMBIN TIME 27.7 SECONDS (12.1-14.4)
[2018-09-18] MEDS: HumaLOG INSULIN (NovoLOG) PER UNIT SC SCH ×6 (07:30→17:42)
[2018-09-18] MEDS: PANTOPRAZOLE 40MG TAB (PROTONIX) PO SCH (08:23)
[2018-09-18] MEDS: ESCITALOPRAM OXALATE 5MG TABLET (LEXAPRO) PO SCH (08:24)
[2018-09-18] MEDS: GABAPENTIN 300 MG CAP PO SCH ×2 (08:24→21:52)
[2018-09-18] MEDS: FERROUS SULFATE 325MG TAB PO SCH ×2 (08:24→21:52)
[2018-09-18] MEDS: CEFDINIR 300 MG CAP (OMNICEF) PO SCH ×2 (08:24→21:52)
[2018-09-18] MEDS: FUROSEMIDE 40 MG TAB PO SCH (08:24)
[2018-09-18] MEDS: ASPIRIN 81 MG ENTERIC TAB PO SCH (08:24)
[2018-09-18] MEDS: DOCUSATE SODIUM 100 MG CAP PO SCH ×2 (08:24→21:00)
--- NOTE | 2018-09-18 12:47 | IPNPDOC ---
Date Seen The patient was seen on 09/18/18. Progress Note HISTORY OF PRESENT ILLNESS: 83-year-old male presenting status post hospital discharge from [facility]. 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 Postoperatively he experienced swelling, anemia, and was treated with IV Zosyn for pneumonia. Prior to this beginning 05/04/18 he underwent a popliteal artery to fibular artery bypass with reverse saphenous grafting and subsequently required amputation of his toes secondary to poor healing and gangrene. Initially he only had his first big toe amputated, however poor healing required amputation of his second and third. Eventually he was admitted to the hospital on 08/25/18 with cellulitis and left foot gangrene subsequently underwent a left-sided BKA. The pt was transferred to [facility] to the care of Dr Chao 09/04/18. He is OOB to wheelchair and working with PT. There is family at bedside. States there is a black area at the end of the Rt great toe which started a few days ago. 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 No acute distress. Alert and oriented x 3. HEENT: Normocephalic, atraumatic. Sclera are nonicteric. Conjunctiva without injection. No facial asymmetry. Moist mucous membranes. CHEST: Regular rate and rhythm, +S1, +S2 LUNGS: Clear to auscultation bilaterally. No wheezes, rales, or rhonchi. ABD: Round, soft, non-tender, non-distended. +Bowel sounds throughout. No rebound or guarding. No costovertebral angle tenderness. EXT: 1mm Rt lower extremity edema appreciated/TEDS removed. There is a black discoloration to the tip of the rt great toe. No drainage. No surrounding erythema, warmth. S/P Lt BKA, dressing intact. SKIN: [place], dry, warm. NEURO: No focal deficits appreciated. A&P: 83-year-old male presenting status post hospital discharge from [place]. Patient is a poor historian, much information is obtained from the chart. He recently underwent a left-sided BKA on 08/25/18 after an angiogram fo und that his bypass graft had been occluded. Postoperatively he experienced swelling, anemia, and was treated with IV Zosyn for pneumonia. Prior to this beginning 05/04/18 he underwent a popliteal artery to fibular artery bypass with reverse saphenous grafting and subsequently required amputation of his toes secondary to poor healing and gangrene. Initially he only had his first big toe amputated, however poor healing required amputation of his second and third. Eventually he was admitted to the hospital on 08/25/18 with cellulitis and left foot gangrene subsequently underwent a left-sided BKA. The pt was transferred to [facility] to the care of Dr Chao 09/04/18. 1. Left-sided below-knee amputation. H/O PAD/history of occluded bypass graft LLE. The patient was treated empirically with vancomycin during [facility] stay for suspected methicillin-resistant Staphylococcus aureus (MRSA) wound inflection. Mgmt as per ARU. Wound care as per ARU. Outpt F/U with vascular surgery. PT/OT Pain control. Bowel care The pt is noted to have a blackened area at the tip of the Rt great toe. It was previously noted by Dr Chao to be a blood filled blister. Nursing and PT note it appears to be larger. Will request Arterial U/S RLE, request opinion from Vascular surgery, Dr Noriega. Dr Noriega agrees to evaluate pt and provide any additional recommendations. 2. Diabetes. CC diet SSI Levemir 3. Diastolic dysfunction. No fluid overload currently. Continue Lasix 40 mg by mouth daily. Monitor. 4. Hypertension. Currently, blood pressure is in satisfactory range. Lasix po. 5. Atrial fibrillation. Rate control digoxin Anticoagulation, warfarin. The patient's INR is 2.52. Monitor PT/INR. 6. Chronic kidney disease, continue to monitor. SCr baseline appears to be 1.5-1.6. 1.63 this AM. Monitor BMP 7. History of transient ischemic attack (TIA) on aspirin. According to the record, the patient is intolerant of statin. 8. Diabetic neuropathy on gabapentin. 9. UTI. E Coli 50,000 CFU as per UC 09/13/17. Cefdinir D4/10. VS, I&O, 24H, Fishbone Vital Signs/I&O Vital Signs Date Time Temp Pulse Resp B/P (MAP) Pulse Ox O2 Delivery O2 Flow Rate FiO2 09/18/18 06:00 98.2 57 18 126/59 (81) 100 Room Air I&O- Last 24 Hours up to 6 AM 09/18/18 06:00 Intake Total 600 ml Balance 600 ml Laboratory Data 24H LABS Laboratory Tests 2 09/17/18 16:51: Bedside Glucose (Misc Panel) 156H 09/17/18 21:03: Bedside Glucose (Misc Panel) 197H 09/18/18 06:06: Prothrombin Time 27.7H, Prothromb Time International Ratio 2.52 09/18/18 06:29: Bedside Glucose (Misc Panel) 141H 09/18/18 11:23: Bedside Glucose (Misc Panel) 179H Microbiology Microbiology 09/10/18 Urine Culture - Final, Complete Escherichia Coli Nia Epperson Sep 18, 2018 12:47
[2018-09-18 14:00] VITALS: BP 136/59
[2018-09-18] MEDS: WARFARIN SOD 2 MG TAB PO SCH (17:43)
[2018-09-18 21:00] VITALS: BP 107/54
[2018-09-18] MEDS: SENNA 8.6 MG TAB (SENOKOT) PO SCH (21:00)
[2018-09-18] MEDS: EZETIMIBE 10 MG TAB (ZETIA) PO SCH (21:52)
[2018-09-18] MEDS: FENOFIBRATE 145 MG TAB (TRICOR) PO SCH (21:52)
[2018-09-18] MEDS: LEVEMIR (INSULIN DETEMIR) 1 UNITS/0.01ML SC SCH (21:52)
[2018-09-18] MEDS: DIGOXIN 0.125 MG TAB PO SCH (21:52)
[2018-09-19 06:00] VITALS: BP 108/55
--- NOTE | 2018-09-19 06:14 | REP ---
Clinical: History of peripheral vascular disease with nonhealing sore. Technique: Real time roach scale and color Doppler evaluation of the right lower extremity arterial vasculature using linear high frequency transducer. Findings: Moderate to significant diffuse atheromatous plaquing noted throughout the right lower extremity without discrete focal area of stricture/stenosis. Triphasic and biphasic arterial wave patterns are noted through the common femoral artery and profunda femoris while monophasic wave patterns are noted from the level of the proximal superficial femoral artery distally. Associated abrupt decrease in velocities between the superficial femoral artery and popliteal artery raises the possibility of non-visualized area of stenosis. PSV(cm/sec) LEFT Common femoral artery 186.1 cm/s Profunda femoris artery 164.1 cm/s Proximal superficial femoral artery 149.0 cm/s Mid superficial femoral artery 151.8 cm/s Distal superficial femoral artery 176.8 cm/s Popliteal artery 35.0 cm/s Proximal SHANNAN 47.7 cm/s Tibioperoneal trunk 50.9 cm/s Proximal [employer] 58.7 cm/s Distal [employer] 25.9 cm/s Distal SHANNAN 14.6 cm/s Impression: Findings are consistent with peripheral vascular disease including possible non-visualized area of stenosis through the superficial femoral vein/popliteal artery region. Electronically Signed by Roney Yusuf MD 09/19/2018 06:05 A
[2018-09-19 06:59] LABS: INR 2.44
[2018-09-19] MEDS: HumaLOG INSULIN (NovoLOG) PER UNIT SC SCH ×6 (07:30→17:21)
[2018-09-19] MEDS: DOCUSATE SODIUM 100 MG CAP PO SCH ×2 (08:20→21:00)
[2018-09-19] MEDS: ESCITALOPRAM OXALATE 5MG TABLET (LEXAPRO) PO SCH (08:20)
[2018-09-19] MEDS: GABAPENTIN 300 MG CAP PO SCH ×2 (08:20→21:08)
[2018-09-19] MEDS: PANTOPRAZOLE 40MG TAB (PROTONIX) PO SCH (08:20)
[2018-09-19] MEDS: FUROSEMIDE 40 MG TAB PO SCH (08:20)
[2018-09-19] MEDS: FERROUS SULFATE 325MG TAB PO SCH ×2 (08:20→21:08)
[2018-09-19] MEDS: CEFDINIR 300 MG CAP (OMNICEF) PO SCH ×2 (08:20→21:08)
[2018-09-19] MEDS: ASPIRIN 81 MG ENTERIC TAB PO SCH (08:20)
--- NOTE | 2018-09-19 12:15 | IPNPDOC ---
Date Seen The patient was seen on 09/19/18. Progress Note HISTORY OF PRESENT ILLNESS: 83-year-old male presenting status post hospital discharge from [facility]. 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 Postoperatively he experienced swelling, anemia, and was treated with IV Zosyn for pneumonia. Prior to this beginning 05/04/18 he underwent a popliteal artery to fibular artery bypass with reverse saphenous grafting and subsequently required amputation of his toes secondary to poor healing and gangrene. Initially he only had his first big toe amputated, however poor healing required amputation of his second and third. Eventually he was admitted to the hospital on 08/25/18 with cellulitis and left foot gangrene subsequently underwent a left-sided BKA. The pt was transferred to [facility] to the care of Dr Chao 09/04/18. He is OOB to wheelchair and working with PT. Pt states pain is controlled. The pt has been noted to have a blackened area at the end of the Rt great toe. Vascular surgery consulted 09/18/18. 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 No acute distress. Alert and oriented x 3. HEENT: Normocephalic, atraumatic. Sclera are nonicteric. Conjunctiva without injection. No facial asymmetry. Moist mucous membranes. CHEST: Regular rate and rhythm, +S1, +S2 LUNGS: Clear to auscultation bilaterally. No wheezes, rales, or rhonchi. ABD: Round, soft, non-tender, non-distended. +Bowel sounds throughout. No rebound or guarding. No costovertebral angle tenderness. EXT: 1mm Rt lower extremity edema appreciated/TEDS removed. There is a black discoloration to the tip of the rt great toe. No drainage. No surrounding erythema, warmth. S/P Lt BKA, dressing intact. SKIN: [place], dry, warm. NEURO: No focal deficits appreciated. Arterial U/S RLE 09/18/18 Findings are consistent with peripheral vascular disease including possible non-visualized area of stenosis through the superficial femoral vein/popliteal artery region. Electronically Signed by Roney Yusuf MD 09/19/2018 06:05 A A&P: 83-year-old male presenting status post hospital discharge from [facility]. Patient is a poor historian, much information is obtained from the chart. 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 Postoperatively he experienced swelling, anemia, and was treated with IV Zosyn for pneumonia. Prior to this beginning 05/04/18 he underwent a popliteal artery to fibular artery bypass with reverse saphenous grafting and subsequently required amputation of his toes secondary to poor healing and gangrene. Initially he only had his first big toe amputated, however poor healing required amputation of his second and third. Eventually he was admitted to the hospital on 08/25/18 with cellulitis and left foot gangrene subsequently underwent a left-sided BKA. The pt was transferred to [facility] to the care of Dr Chao 09/04/18. 1. Left-sided below-knee amputation. H/O PAD/history of occluded bypass graft LLE. The patient was treated empirically with vancomycin during [facility] stay for suspected methicillin-resistant Staphylococcus aureus (MRSA) wound inflection. Mgmt as per ARU. Wound care as per ARU. Outpt F/U with vascular surgery. PT/OT Pain control. Bowel care The pt is noted to have a blackened area at the tip of the Rt great toe. It was previously noted by Dr Chao to be a blood filled blister. Nursing and PT have noted it to appear larger. Arterial U/S RLE 09/18/18, requested opinion from Vascular surgery 09/18/18, Dr Noriega. Dr Noriega agreed to evaluate pt and provide any additional recommendations. Confirmed with Vascular, they plan to evaluate pt this afternoon. 2. Diabetes. CC diet SSI Levemir 3. Diastolic dysfunction. No fluid overload currently. Continue Lasix 40 mg by mouth daily. Monitor. 4. Hypertension. Currently, blood pressure is in satisfactory range. Lasix po. 5. Atrial fibrillation. Rate control digoxin Anticoagulation, warfarin. The patient's INR is 2.52. Monitor PT/INR. 6. Chronic kidney disease, continue to monitor. SCr baseline appears to be 1.5-1.6. 1.63 this AM. Update BMP in AM. 7. History of transient ischemic attack (TIA) on aspirin. According to the record, the patient is intolerant of statin. 8. Diabetic neuropathy on gabapentin. 9. UTI. E Coli 50,000 CFU as per UC 09/13/17. Cefdinir D5/10. 10. Anemia. likely acute blood loss. Hgb 8.8. Fe BID. Update CBC in AM. VS, I&O, 24H, Fishbone Vital Signs/I&O Vital Signs Date Time Temp Pulse Resp B/P (MAP) Pulse Ox O2 Delivery O2 Flow Rate FiO2 09/19/18 06:00 97.5 56 18 108/55 (72) 97 Room Air I&O- Last 24 Hours up to 6 AM 09/19/18 06:00 Intake Total 1320 ml Output Total 1200 ml Balance 120 ml Laboratory Data 24H LABS Laboratory Tests 2 09/18/18 16:53: Bedside Glucose (Misc Panel) 117H 09/18/18 20:05: Bedside Glucose (Misc Panel) 107 09/19/18 06:12: Prothrombin Time 27.0H, Prothromb Time International Ratio 2.44 09/19/18 06:39: Bedside Glucose (Misc Panel) 147H 09/19/18 11:45: Bedside Glucose (Misc Panel) 152H Microbiology Microbiology 09/10/18 Urine Culture - Final, Complete Escherichia Coli Nia Epperson Sep 19, 2018 12:15
[2018-09-19 14:00] VITALS: BP 139/63
--- NOTE | 2018-09-19 14:31 | IPNPDOC ---
PM&R Progress Note DATE OF SERVICE: Sep 19, 2018 Voice Pathologist Progress Note Subjective: Patient seen in his room reporting he feels well overall and is awaiting a vascular wound consult today for his right D1 digit lesion. REVIEW OF SYSTEMS: The following is a completed review of systems and has been reviewed. Review of systems otherwise unremarkable. PAIN: Patient self reports no pain EYES: Negative for recent vision changes. EARS, NOSE, & THROAT:+HUGHES, no dysphagia or rhinorrhea CARDIOVASCULAR: denies chest pain or palpitations PULMONARY: Negative. Denies shortness of breath GASTROINTESTINAL: Negative for constipation or diarrhea GENITOURINARY: Negative for dysuria MUSCULOSKELETAL: left BKA NEUROLOGICAL: +distal neuropathy HEMATOLOGICAL: bilat UE ecchymosis SKIN: left BKA incision PSYCHIATRIC: Unremarkable All other review of systems found to be negative. PHYSICAL EXAMINATION: VITAL SIGNS: Please see below. GENERAL: Pleasant and cooperative. No acute distress. HEENT: PERRL. Extraocular movements intact. Clear conjunctiva, +glasses CARDIOVASCULAR: Irregular rate and rhythm. No murmurs, rubs, or gallops LUNGS: Clear to auscultation bilaterally. No wheezes. No rhonchi ABDOMEN: Soft, nontender, nondistended. Positive bowel sounds. Normal active bowel sounds NEUROLOGICAL: Alert and oriented times three. Cranial nerves II through XII grossly intact. Sensation grossly intact except diminished right LE EXTREMITIES: 5-\5 strength bilateral upper extremities.5-\5 strength right hip flexors and knee extensors, 2/5 ankle DF and 0/5 EHL 5-/5 strength in left hip flexors, knee extensors and flexors lower extremity. . SKIN: left residual limb with sutures and kennedy, mild erythema, minimal swelling, +sternotomy scar +right foot D1 black (blood filled) blister, does not appear to be a pressure ulcer or DTI, slightly larger today ASSESSMENT:84-year-old M with past medical history of CAD, DM, PAD who presents status post Left BKA. PLAN: 1. Rehab: PT, OT, assess for DME, keep residual limb in extension to prevent flexion contracture, transfers gradually improving with slide board, improving toilet transfers 2. Neuro: stable, hx of TIAs, continue ASA and statin for secondary stroke prevention- monitor BPs and adjust meds prn 3. CArdio: pmh Afic, AVR and mitral valve repair, with chronic diastolic CHF- continue digoxin, Coumadin, and lasix- medicine consulted, recs appreciated 4. 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 Endo: pmh uncontrolled DM continue insulin coverage and adjust, consider restarting oral agents-stable 6. ID: s/p recent course of IV ZOsyn and Vanco, monitor for infection- stable 7. : admission UA negative, however Ux + E. coli, repeat UA with trace LE, also + E.coli, continue Cefdinir 8. DVT ppx: on Coumadin 9. GI ppx: Protonix 10. Skin: daily dressing changes, monitor right foot D1 blister very slightly larger, continue to apply skin prep- Arterial study ordered yesterday per medicine consistent with PVD and vascular to examine toe today- otherwise will f/u with Dr. Rush as outpatient 11. Dispo: was scheduled for 09-20-18 however having difficulty with safety awareness will post-pone d/c until 09/25 Allergies Coded Allergies: Statins (Unverified Adverse Reaction, Mild, LEGS FEEL HEAVY, 09/04/18) Vital Signs Vital Signs Date Time Temp Pulse Resp B/P (MAP) Pulse Ox O2 Delivery O2 Flow Rate FiO2 09/19/18 06:00 97.5 56 18 108/55 (72) 97 Room Air Laboratory Data Labs 24H Laboratory Tests 2 09/18/18 16:53: Bedside Glucose (Misc Panel) 117H 09/18/18 20:05: Bedside Glucose (Misc Panel) 107 09/19/18 06:12: Prothrombin Time 27.0H, Prothromb Time International Ratio 2.44 09/19/18 06:39: Bedside Glucose (Misc Panel) 147H 09/19/18 11:45: Bedside Glucose (Misc Panel) 152H Microbiology Microbiology 09/10/18 Urine Culture - Final, Complete Escherichia Coli Current Medications Current Medications Current Medications Acetaminophen (Tylenol Tab) 650 mg Q4HP PRN PO fever/MILD PAIN (PS 1-4) Last administered on 09/17/18at 22:28; Start 09/04/18 at 16:30 Albuterol/ Ipratropium (Duoneb (Ipr 0.5mg/Alb 2.5mg)) 3 ml Q6HP PRN NEB SOB/WHEEZING; Start 09/04/18 at 17:00 Aspirin (Ecotrin) 81 mg DAILY PO Last administered on 09/19/18 08:20; Start 09/05/18 at 09:00 Bisacodyl (Dulcolax Suppository) 10 mg DAILYPRN PRN MT CONSTIPATION; Start 09/04/18 at 16:30 Cefdinir (Omnicef) 300 mg BID PO Last administered on 09/19/18 08:20; Start 09/15/18 at 21:00; Stop 09/25/18 at 09:01 Dextrose (Dextrose 50%) 25 ml ASDIRECTED PRN IV SEE LABEL COMMENTS; Start 09/04/18 at 17:00 Diazepam (Valium) 2 mg Q8HP PRN PO spasm; Start 09/04/18 at 17:00; Stop 09/11/18 at 11:26; Status DC Digoxin (Lanoxin) 0.125 mg DAILY@2100 PO Last administered on 09/18/18 21:52; Start 09/04/18 at 21:00 Docusate Sodium (Colace) 100 mg BID PO Last administered on 09/19/18 08:20; Start 09/04/18 at 21:00 Doxycycline Hyclate (Vibramycin) 100 mg BID PO ; Start 09/04/18 at 21:00; Stop 09/04/18 at 21:00; Status DC Escitalopram Oxalate (Lexapro) 5 mg DAILY PO Last administered on 09/19/18 08:20; Start 09/05/18 at 09:00 EZETIMIBE (Zetia) 10 mg QHS PO Last administered on 09/18/18 21:52; Start 09/04/18 at 21:00 Fenofibrate (Tricor) 145 mg DAILY@2100 PO Last administered on 09/18/18 21:52; Start 09/04/18 at 21:00 Ferrous Sulfate (Ferrous Sulfate) 325 mg BID PO Last administered on 09/19/18 08:20; Start 09/04/18 at 21:00 Furosemide (Lasix) 40 mg DAILY PO Last administered on 09/19/18 08:20; Start 09/05/18 at 09:00 Gabapentin (Neurontin) 300 mg BID PO Last administered on 09/19/18at 08:20; Start 09/04/18 at 21:00 Glucagon (Glucagon) 1 mg ASDIRECTED PRN SC SEE LABEL COMMENTS; Start 09/04/18 at 17:00 Glucose (Glucose) 16 GM ASDIRECTED PRN PO SEE LABEL COMMENTS; Start 09/04/18 at 17:00 Home Med (Med Rec Complete!) ASDIRECTED XX ; Start 09/04/18 at 13:30; Stop 09/04/18 at 13:30; Status DC Insulin Detemir (Levemir Insulin) 20 units QHS SC Last administered on 09/06/18at 21:03; Start 09/04/18 at 21:00; Stop 09/07/18 at 10:24; Status DC Insulin Detemir (Levemir Insulin) 24 units QHS SC Last administered on 09/12/18at 22:19; Start 09/07/18 at 21:00; Stop 09/13/18 at 15:13; Status DC Insulin Detemir (Levemir Insulin) 28 units QHS SC Last administered on 09/18/18at 21:52; Start 09/13/18 at 21:00 Insulin Human Lispro (HumaLOG INSULIN) 2 units AC SC Last administered on 09/07/18 07:26; Start 09/06/18 at 07:30; Stop 09/07/18 at 10:24; Status DC Insulin Human Lispro (HumaLOG INSULIN) 4 units AC SC Last administered on 09/07/18at 12:43; Start 09/07/18 at 12:00; Stop 09/07/18 at 15:04; Status DC Insulin Human Lispro (HumaLOG INSULIN) 6 units AC SC Last administered on 09/13/18at 12:00; Start 09/07/18 at 17:30; Stop 09/13/18 at 15:13; Status DC Insulin Human Lispro (HumaLOG INSULIN) 10 units AC SC Last administered on 09/19/18at 12:00; Start 09/13/18 at 17:30 Insulin Human Lispro (HumaLOG INSULIN) SEE PROTOCOL TABLE AC SC Last administered on 09/19/18at 12:20; Start 09/04/18 at 17:30 Levofloxacin (Levaquin) 250 mg DAILY@06 PO Last administered on 09/15/18at 06:13; Start 09/12/18 at 06:00; Stop 09/15/18 at 11:05; Status DC Magnesium Hydroxide (Milk Of Magnesia) 30 ml DAILYPRN PRN PO CONSTIPATION; Start 09/04/18 at 16:30 Miscellaneous (Unresolved Clarification Entry) SEE LABEL COMMENTS DAILY XX ; Start 09/17/18 at 09:00; Stop 09/17/18 at 16:13; Status DC Miscellaneous (Unresolved Clarification Entry) SEE LABEL COMMENTS DAILY XX ; Start 09/10/18 at 09:00; Stop 09/11/18 at 11:29; Status DC Ondansetron HCl (Zofran) 4 mg Q6HP PRN PO NAUSEA; Start 09/04/18 at 16:30 Oxycodone/ Acetaminophen (Percocet 5mg/ 325mg Tablet) 1 tab Q4HP PRN PO MODERATE PAIN (PS 5-7); Start 09/04/18 at 16:30; Status Cancel Oxycodone/ Acetaminophen (Percocet 5mg/ 325mg Tablet) 2 tab Q4HP PRN PO SEVERE PAIN (PS 8-10); Start 09/04/18 at 16:30; Status Cancel Pantoprazole Sodium (Protonix) 40 mg DAILY PO Last administered on 09/19/18at 08:20; Start 09/05/18 at 09:00 Piperacillin Sod/ Tazobactam Sod 3.375 gm/Dextrose 50 ml @ 100 mls/hr Q6H IV ; Start 09/04/18 at 17:00; Stop 09/04/18 at 17:07; Status DC Senna (Senokot) 1 tab QHS PO Last administered on 09/12/18at 22:20; Start 09/04/18 at 21:00 Warfarin Sodium (Coumadin) 4 mg DAILY@17 PO Last administered on 09/18/18at 17:43; Start 09/11/18 at 17:00 Warfarin Sodium (Coumadin) 5 mg DAILY@17 PO Last administered on 09/10/18at 17:34; Start 09/04/18 at 17:00; Stop 09/11/18 at 10:35; Status DC GERMAINE AUSTIN MD Sep 19, 2018 14:31
--- NOTE | 2018-09-19 15:16 | CR.PDOC ---
General Date of Consultation: Sep 19, 2018 Attending Physician: Jc Noriega MD Consultation REASON FOR CONSULTATION/CHIEF COMPLAINT: Right great toe gangrene with PVD HISTORY OF PRESENT ILLNESS: Patient is an 83 yo male who presents s/p hospital discharge from [facility]. Patient has hearing loss and is a poor historian. Most information is obtained from his . Patient has Lt PVD and underwent Lt popliteal artery to fibular artery bypass with reverse GSV grafting at [facility] in April, which complicated with graft occlusion on following angiogram. Pt underwent TMAs and then Lt BKA on 08/25/18 for cellulitis and left foot gangrene. Patient was found to have a small gangrene on the tip of Rt great toe. Arterial US RLE findings are consistent with PVD including possible non-visualized area of stenosis through Rt SFA /PA region. Patient has no complaints at this time. ALLERGIES: Please see below. HOME MEDICATIONS: Please see below. PAST MEDICAL HISTORY: Peripheral artery disease Essential hypertension CKD stage III Obesity Diabetes mellitus Atrial fibrillation on Coumadin Hyperlipidemia Diastolic CHF Diabetic neuropathy COPD CAD A&M valve replacement PAST SURGICAL HISTORY: Left-sided BKA Lt TMAs - Heart valve repair and replacement (10/2015) SOCIAL HISTORY: Former smoker pipe per day (5 years ago), drink alcohol occasionally, denies drug abuse. FAMILY HISTORY: Both parents are with a history of diabetes REVIEW OF SYSTEMS: 14 systems reviewed and were negative except those listed in HPI. PHYSICAL EXAMINATION: VITAL SIGNS: Please see below. GENERAL APPEARANCE: AAO x3, HEENT: NCAD,LIAM, EOMI, Hearing difficulty both ears RESPIRATORY: CTAB CARDIOVASCULAR: RRR, no G/M/R, PP: Rt DP and PT audible biphasic ABDOMEN: BS nl, NT/ND, no palpable mass EXTREMITIES: LLE, S/p BKA, stump wound healing well w/o issue. RLE: Pitting edema 2+, a 0.7 x 0.3 cm tiny gangrenous change on the tip of Rt great toe. No surrounding erythema. NEUROLOGICAL: CN 2-12, motor and sensation intact no deficits PSYCHIATRIC: Appropriate mood and affect. LABORATORY DATA: Please see below. ASSESSMENT AND PLAN 1. PVD b/l, S/p Lt BKA x 3 weeks This is an 83 yo male with LLE PVD S/p Lt popliteal artery to fibular artery bypass with reverse GSV grafting x 5 months, s/p Lt BKA x 3+ weeks. Patient has a small gangrene on the tip of Rt great toe with RLE PVD possibly involving Rt SFA /PA region. The Rt distal pulses are audible. Pt requires evaluation with LLE angiogram either with his vascular surgeon in [place] or with us. Case will be discussed with Dr Noriega. 2. Diastolic CHF 3. CAD 4. AFib on Coumadin 5. CKD stage III 6. HTN 7. HLD 8. DM II 9. Diabetic neuropathy 10. COPD Vital Signs/I&O Vital Signs Date Time Temp Pulse Resp B/P (MAP) Pulse Ox O2 Delivery O2 Flow Rate FiO2 09/19/18 06:00 97.5 56 18 108/55 (72) 97 Room Air I&O- Last 24 Hours up to 6 AM 09/19/18 05:59 Intake Total 1320 ml Output Total 1200 ml Balance 120 ml Laboratory Data Labs 24H Laboratory Tests 2 09/18/18 16:53: Bedside Glucose (Misc Panel) 117H 09/18/18 20:05: Bedside Glucose (Misc Panel) 107 09/19/18 06:12: Prothrombin Time 27.0H, Prothromb Time International Ratio 2.44 09/19/18 06:39: Bedside Glucose (Misc Panel) 147H 09/19/18 11:45: Bedside Glucose (Misc Panel) 152H Microbiology Microbiology 09/10/18 Urine Culture - Final, Complete Escherichia Coli Allergies Coded Allergies: Statins (Unverified Adverse Reaction, Mild, LEGS FEEL HEAVY, 09/04/18) Home Medications Scheduled (Digoxin) 125 Mcg Tab, 125 MCG PO QPM, (Reported) Aspirin (Aspirin EC) 81 Mg Tab, 81 MG PO DAILY, (Reported) Escitalopram Oxalate (Lexapro) 5 Mg Tab, 5 MG PO DAILY, (Reported) Fenofibrate (Fenofibrate) 145 Mg Tab, 145 MG PO QPM, (Reported) Ferrous Sulfate (Ferrous Sulfate) 325 Mg Tab, 325 MG PO BID, (Reported) Furosemide (Furosemide) 40 Mg Tab, 40 MG PO DAILY, (Reported) Insulin Glargine (Lantus Solostar) 100 Unit/Ml Inj, 18 UNITS SC QHS, (Reported) Insulin Human Lispro (Humalog) 1 Units/0.01 Ml Inj, 1 UNITS SC AC, (Reported) SLIDING SCALE Pantoprazole Sodium (Pantoprazole Sodium) 40 Mg Tab, 40 MG PO DAILY, (Reported) Senna (Senokot) 8.6 Mg Tab, 8.6 MG PO DAILY, (Reported) HOLD FOR LOOSE STOOLS Warfarin Sod (Warfarin Sodium) 7.5 Mg Tab, 7.5 MG PO ONCE, (Reported) GIVEN A ONE TIME ORDER Scheduled PRN Acetaminophen (Acetaminophen ER) 650 Mg Tab, 650 MG PO Q6H PRN for PAIN, (Reported) JEANINE JERONIMO PA-C Sep 19, 2018 15:16
[2018-09-19] MEDS: WARFARIN SOD 2 MG TAB PO SCH (17:20)
[2018-09-19 20:00] VITALS: BP 130/58
[2018-09-19] MEDS: SENNA 8.6 MG TAB (SENOKOT) PO SCH (21:00)
[2018-09-19] MEDS: FENOFIBRATE 145 MG TAB (TRICOR) PO SCH (21:08)
[2018-09-19] MEDS: LEVEMIR (INSULIN DETEMIR) 1 UNITS/0.01ML SC SCH (21:08)
[2018-09-19] MEDS: EZETIMIBE 10 MG TAB (ZETIA) PO SCH (21:08)
[2018-09-19] MEDS: DIGOXIN 0.125 MG TAB PO SCH (21:12)
[2018-09-20 06:00] VITALS: BP 126/60
[2018-09-20 06:36] LABS: HEMATOCRIT 27.4 % (42.0-52.0); HEMOGLOBIN 9.2 g/dl (13.5-17.5); MEAN CORPUSCULAR HEMOGLOBIN 31.1 pg (27.0-33.0); MEAN CORPUSCULAR HGB CONC 33.6 g/dl (32.0-36.5); MEAN CORPUSCULAR VOLUME 92.6 fl (80.0-96.0); PLATELET COUNT, AUTOMATED 171 10^3/uL (150-450); RED BLOOD COUNT 2.96 10^6/uL (4.30-6.10)
[2018-09-20 06:51] LABS: INR 2.53; PROTHROMBIN TIME 27.8 SECONDS (12.1-14.4)
[2018-09-20 07:04] LABS: ALBUMIN 3.2 GM/DL (3.2-5.2); BILIRUBIN,TOTAL 0.5 MG/DL (0.2-1.0); CALCIUM LEVEL 8.8 MG/DL (8.8-10.2); CREATININE FOR GFR 1.59 MG/DL (0.70-1.30); GLOMERULAR FILTRATION RATE 44.5 (>35); TOTAL PROTEIN 6.9 GM/DL (6.4-8.2)
[2018-09-20] MEDS: DOCUSATE SODIUM 100 MG CAP PO SCH ×2 (08:42→20:20)
[2018-09-20] MEDS: HumaLOG INSULIN (NovoLOG) PER UNIT SC SCH ×3 (08:42→17:33)
[2018-09-20] MEDS: PANTOPRAZOLE 40MG TAB (PROTONIX) PO SCH (08:42)
[2018-09-20] MEDS: ASPIRIN 81 MG ENTERIC TAB PO SCH (08:42)
[2018-09-20] MEDS: GABAPENTIN 300 MG CAP PO SCH ×2 (08:43→20:10)
[2018-09-20] MEDS: ESCITALOPRAM OXALATE 5MG TABLET (LEXAPRO) PO SCH (08:43)
[2018-09-20] MEDS: FERROUS SULFATE 325MG TAB PO SCH ×2 (08:43→20:09)
[2018-09-20] MEDS: FUROSEMIDE 40 MG TAB PO SCH (08:43)
[2018-09-20] MEDS: CEFDINIR 300 MG CAP (OMNICEF) PO SCH ×2 (08:43→20:09)
[2018-09-20 14:00] VITALS: BP 102/54
--- NOTE | 2018-09-20 14:39 | IPNPDOC ---
Date Seen The patient was seen on 09/20/18. Progress Note HISTORY OF PRESENT ILLNESS: 83-year-old male presenting status post hospital discharge from [facility]. 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 Postoperatively he experienced swelling, anemia, and was treated with IV Zosyn for pneumonia. Prior to this beginning 05/04/18 he underwent a popliteal artery to fibular a rtery bypass with reverse saphenous grafting and subsequently required amputation of his toes secondary to poor healing and gangrene. Initially he only had his first big toe amputated, however poor healing required amputation of his second and third. Eventually he was admitted to the hospital on 08/25/18 with cellulitis and left foot gangrene subsequently underwent a left-sided BKA. The pt was transferred to [facility] to the care of Dr Chao 09/04/18. He is OOB to wheelchair. No voiced complaints at this time. The pt has been noted to have a blackened area at the end of the Rt great toe. Vascular surgery consulted 09/18/18. The area has been unchanged. 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 No acute distress. Alert and oriented x 3. HEENT: Normocephalic, atraumatic. Sclera are nonicteric. Conjunctiva without injection. No facial asymmetry. Moist mucous membranes. CHEST: Regular rate and rhythm, +S1, +S2 LUNGS: Clear to auscultation bilaterally. No wheezes, rales, or rhonchi. ABD: Round, soft, non-tender, non-distended. +Bowel sounds throughout. No rebound or guarding. No costovertebral angle tenderness. EXT: 1mm Rt lower extremity edema appreciated/TEDS removed. There is a black discoloration to the tip of the rt great toe. No drainage. No surrounding erythema, warmth. S/P Lt BKA, dressing intact. SKIN: [place], dry, warm. NEURO: No focal deficits appreciated. Arterial U/S RLE 09/18/18 Findings are consistent with peripheral vascular disease including possible non-visualized area of stenosis through the superficial femoral vein/popliteal artery region. Electronically Signed by Roney Yusuf MD 09/19/2018 06:05 A A&P: 83-year-old male presenting status post hospital discharge from [facility]. Patient is a poor historian, much information is obtained from the chart. 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 Postoperatively he experienced swelling, anemia, and was treated with IV Zosyn for pneumonia. Prior to this beginning 05/04/18 he underwent a popliteal artery to fibular artery bypass with reverse saphenous grafting and subsequently required amputation of his toes secondary to poor healing and gangrene. Initially he only had his first big toe amputated, however poor healing required amputation of his second and third. Eventually he was admitted to the hospital on 08/25/18 with cellulitis and left foot gangrene subsequently underwent a left-sided BKA. The pt was transferred to [facility] to the care of Dr Chao 09/04/18. 1. Left-sided below-knee amputation. H/O PAD/history of occluded bypass graft LLE. The patient was treated empirically with vancomycin during [facility] stay for suspected methicillin-resistant Staphylococcus aureus (MRSA) wound inflection. Mgmt as per ARU. Wound care as per ARU. Outpt F/U with vascular surgery. PT/OT Pain control. Bowel care The pt was noted to have a blackened area at the tip of the Rt great toe. It was previously noted by Dr Chao to be a blood filled blister. Arterial U/S RLE 09/18/18. Requested opinion from Vascular surgery 09/18/18, Dr Noriega. Dr Chao has d/w Dr Noriega and plan to hold off on any further imaging. Monitor the area. Plan is for pt to f/u with his vascular surgeon at d/c, Dr Rush. Continue wound care. 2. Diabetes. CC diet SSI Levemir Has had adjustments in regimen as per Dr chao. 3. Diastolic dysfunction. No fluid overload currently. Continue Lasix 40 mg by mouth daily. Monitor. 4. Hypertension. Currently, blood pressure is in satisfactory range. Lasix po. 5. Atrial fibrillation. Rate control digoxin Anticoagulation, warfarin. The patient's INR is 2.53. Monitor PT/INR. 6. Chronic kidney disease, continue to monitor. SCr baseline appears to be 1.5-1.6. 1.59 this AM. BMP in AM. 7. History of transient ischemic attack (TIA) on aspirin. According to the record, the patient is intolerant of statin. 8. Diabetic neuropathy on gabapentin. 9. UTI. E Coli 50,000 CFU as per UC 09/13/17. Cefdinir D6/10. 10. Anemia. likely acute blood loss. Hgb 9.2. Fe BID. Monitor. VS, I&O, 24H, Fishbone Vital Signs/I&O Vital Signs Date Time Temp Pulse Resp B/P (MAP) Pulse Ox O2 Delivery O2 Flow Rate FiO2 09/20/18 14:00 98.2 60 20 102/54 (70) 96 Room Air I&O- Last 24 Hours up to 6 AM 09/20/18 06:00 Intake Total 2070 ml Output Total 1200 ml Balance 870 ml Laboratory Data 24H LABS Laboratory Tests 2 09/19/18 16:54: Bedside Glucose (Misc Panel) 134H 09/19/18 20:15: Bedside Glucose (Misc Panel) 210H 09/20/18 06:01: Nucleated Red Blood Cells % (auto) 0.0, Prothrombin Time 27.8H, Prothromb Time International Ratio 2.53, Anion Gap 7L, Glomerular Filtration Rate 44.5, Blood Urea Nitrogen 34H, Creatinine 1.59H, Sodium Level 140, Potassium Level 4.0, Chloride Level 105, Carbon Dioxide Level 28, Calcium Level 8.8, Aspartate Amino Transf (AST/SGOT) 28, Alanine Aminotransferase (ALT/SGPT) 30, Alkaline Nic sphatase 59, Total Bilirubin 0.5, Total Protein 6.9, Albumin 3.2, Albumin/Globulin Ratio 0.86L 09/20/18 06:04: Bedside Glucose (Misc Panel) 129H 09/20/18 11:35: Bedside Glucose (Misc Panel) 108 CBC/BMP Laboratory Tests 09/20/18 06:01 Red Blood Count 2.96 L, Mean Corpuscular Volume 92.6, Mean Corpuscular Hemoglobin 31.1, Mean Corpuscular Hemoglobin Concent 33.6, Red Cell Distribution Width 15.1 H, Calcium Level 8.8, Aspartate Amino Transf (AST/SGOT) 28, Alanine Aminotransferase (ALT/SGPT) 30, Alkaline Phosphatase 59, Total Bilirubin 0.5, Total Protein 6.9, Albumin 3.2 Microbiology Microbiology 09/10/18 Urine Culture - Final, Complete Escherichia Coli Nia Epperson Sep 20, 2018 14:39
[2018-09-20] MEDS: WARFARIN SOD 2 MG TAB PO SCH (17:33)
--- NOTE | 2018-09-20 18:36 | IPNPDOC ---
PM&R Progress Note DATE OF SERVICE: Sep 20, 2018 Medication Assistant Progress Note DATE OF SERVICE: Sep 20, 2018 Medication Assistant Progress Note Subjective: Patient seen in his room upset about the possibility of needing surgical intervention to his right foot, reassured that angiography is not urgently needed and that he an follow-up with Dr. Rush. He is agreeable to staying thourgh the weekend with a goal of getting to modified Independent with all transfers from a wheelchair level using a sliding board. REVIEW OF SYSTEMS: The following is a completed review of systems and has been r xiaowealison. Review of systems otherwise unremarkable. PAIN: Patient self reports no pain EYES: Negative for recent vision changes. EARS, NOSE, & THROAT:+[place], no dysphagia or rhinorrhea CARDIOVASCULAR: denies chest pain or palpitations PULMONARY: Negative. Denies shortness of breath GASTROINTESTINAL: Negative for constipation or diarrhea GENITOURINARY: Negative for dysuria MUSCULOSKELETAL: left BKA NEUROLOGICAL: +distal neuropathy HEMATOLOGICAL: bilat UE ecchymosis SKIN: left BKA incision PSYCHIATRIC: Unremarkable All other review of systems found to be negative. PHYSICAL EXAMINATION: VITAL SIGNS: Please see below. GENERAL: Pleasant and cooperative. No acute distress. HEENT: PERRL. Extraocular movements intact. Clear conjunctiva, +glasses CARDIOVASCULAR: Irregular rate and rhythm. No murmurs, rubs, or gallops LUNGS: Clear to auscultation bilaterally. No wheezes. No rhonchi ABDOMEN: Soft, nontender, nondistended. Positive bowel sounds. Normal active bowel sounds NEUROLOGICAL: Alert and oriented times three. Cranial nerves II through XII grossly intact. Sensation grossly intact except diminished right LE EXTREMITIES: 5-\5 strength bilateral upper extremities.5-\5 strength right hip flexors and knee extensors, 2/5 ankle DF and 0/5 EHL 5-/5 strength in left hip flexors, knee extensors and flexors lower extremity. . SKIN: left residual limb with sutures and kennedy, mild erythema, minimal swelling, +sternotomy scar +right foot D1 black (blood filled) blister, does not appear to be a pressure ulcer or DTI, stable ASSESSMENT:84-year-old M with past medical history of CAD, DM, PAD who presents status post Left BKA. PLAN: 1. Rehab: PT, OT, assess for DME, keep residual limb in extension to prevent flexion contracture, transfers gradually improving with slide board, improving toilet transfers 2. Neuro: stable, hx of TIAs, continue ASA and statin for secondary stroke prevention- monitor BPs and adjust meds prn 3. CArdio: pmh Afic, AVR and mitral valve repair, with chronic diastolic CHF- continue digoxin, Coumadin, and lasix- medicine consulted, recs appreciated 4. 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 Endo: pmh uncontrolled DM continue insulin coverage and adjust, consider restarting oral agents-stable 6. ID: s/p recent course of IV ZOsyn and Vanco, monitor for infection- stable 7. : admission UA negative, however Ux + E. coli, repeat UA with trace LE, als o + E.coli, continue Cefdinir 8. DVT ppx: on Coumadin 9. GI ppx: Protonix 10. Skin: daily dressing changes, monitor right foot D1 blister very slightly larger, continue to apply skin prep- Arterial on 09-18-18 positive for peripheral vascular disease, seen by vascular surgery in house and will defer any RLE angiography to Dr. Rush with whom he has an appointment 10-02-18 at 10:[address] Dispo: was scheduled for 09-20-18 however having difficulty with safety awareness will post-pone d/c until 09/26 Patient is currently wheelchair bound and cannot complete his MADLs without the use of one. He is unsteady on his leg, lacks proprioception and is at high risk of falling. His house is wheelchair accessible, he is agreeable to using one, and his family members have agreed to help him use it. Having a wheelchair will greatly improve his ability to complete his activities of daily living in a safe way. Allergies Coded Allergies: Statins (Unverified Adverse Reaction, Mild, LEGS FEEL HEAVY, 09/04/18) Vital Signs Vital Signs Date Time Temp Pulse Resp B/P (MAP) Pulse Ox O2 Delivery O2 Flow Rate FiO2 09/20/18 14:00 98.2 60 20 102/54 (70) 96 Room Air Laboratory Data CBC/BMP Laboratory Tests 09/20/18 06:01 Red Blood Count 2.96 L, Mean Corpuscular Volume 92.6, Mean Corpuscular Hemoglobin 31.1, Mean Corpuscular Hemoglobin Concent 33.6, Red Cell Distribution Width 15.1 H, Calcium Level 8.8, Aspartate Amino Transf (AST/SGOT) 28, Alanine Aminotransferase (ALT/SGPT) 30, Alkaline Phosphatase 59, Total Bilirubin 0.5, Total Protein 6.9, Albumin 3.2 Labs 24H Laboratory Tests 2 09/19/18 20:15: Bedside Glucose (Misc Panel) 210H 09/20/18 06:01: Nucleated Red Blood Cells % (auto) 0.0, Prothrombin Time 27.8H, Prothromb Time International Ratio 2.53, Anion Gap 7L, Glomerular Filtration Rate 44.5, Blood Urea Nitrogen 34H, Creatinine 1.59H, Sodium Level 140, Potassium Level 4.0, Chloride Level 105, Carbon Dioxide Level 28, Calcium Level 8.8, Aspartate Amino Transf (AST/SGOT) 28, Alanine Aminotransferase (ALT/SGPT) 30, Alkaline Phosphatase 59, Total Bilirubin 0.5, Total Protein 6.9, Albumin 3.2, Albumin/Globulin Ratio 0.86L 09/20/18 06:04: Bedside Glucose (Misc Panel) 129H 09/20/18 11:35: Bedside Glucose (Misc Panel) 108 09/20/18 16:33: Bedside Glucose (Misc Panel) 233H Microbiology Microbiology 09/10/18 Urine Culture - Final, Complete Escherichia Coli Current Medications Current Medications Current Medications Acetaminophen (Tylenol Tab) 650 mg Q4HP PRN PO fever/MILD PAIN (PS 1-4) Last administered on 09/17/18at 22:28; Start 09/04/18 at 16:30 Albuterol/ Ipratropium (Duoneb (Ipr 0.5mg/Alb 2.5mg)) 3 ml Q6HP PRN NEB SOB/WHEEZING; Start 09/04/18 at 17:00 Aspirin (Ecotrin) 81 mg DAILY PO Last administered on 09/20/18at 08:42; Start 09/05/18 at 09:00 Bisacodyl (Dulcolax Suppository) 10 mg DAILYPRN PRN [place] CONSTIPATION; Start 09/04/18 at 16:30 Cefdinir (Omnicef) 300 mg BID PO Last administered on 09/20/18 08:43; Start 09/15/18 at 21:00; Stop 09/25/18 at 09:01 Dextrose (Dextrose 50%) 25 ml ASDIRECTED PRN IV SEE LABEL COMMENTS; Start 09/04/18 at 17:00 Diazepam (Valium) 2 mg Q8HP PRN PO spasm; Start 09/04/18 at 17:00; Stop 09/11/18 at 11:26; Status DC Digoxin (Lanoxin) 0.125 mg DAILY@2100 PO Last administered on 09/19/18 21:12; Start 09/04/18 at 21:00 Docusate Sodium (Colace) 100 mg BID PO Last administered on 09/20/18 08:42; Start 09/04/18 at 21:00 Doxycycline Hyclate (Vibramycin) 100 mg BID PO ; Start 09/04/18 at 21:00; Stop 09/04/18 at 21:00; Status DC Escitalopram Oxalate (Lexapro) 5 mg DAILY PO Last administered on 09/20/18 08:43; Start 09/05/18 at 09:00 EZETIMIBE (Zetia) 10 mg QHS PO Last administered on 09/19/18 21:08; Start 09/04/18 at 21:00 Fenofibrate (Tricor) 145 mg DAILY@2100 PO Last administered on 09/19/18 21:08; Start 09/04/18 at 21:00 Ferrous Sulfate (Ferrous Sulfate) 325 mg BID PO Last administered on 09/20/18 08:43; Start 09/04/18 at 21:00 Furosemide (Lasix) 40 mg DAILY PO Last administered on 09/20/18 08:43; Start 09/05/18 at 09:00 Gabapentin (Neurontin) 300 mg BID PO Last administered on 09/20/18 08:43; Start 09/04/18 at 21:00 Glucagon (Glucagon) 1 mg ASDIRECTED PRN SC SEE LABEL COMMENTS; Start 09/04/18 at 17:00 Glucose (Glucose) 16 GM ASDIRECTED PRN PO SEE LABEL COMMENTS; Start 09/04/18 at 17:00 Home Med (Med Rec Complete!) ASDIRECTED XX ; Start 09/04/18 at 13:30; Stop 09/04/18 at 13:30; Status DC Insulin Detemir (Levemir Insulin) 20 units QHS SC Last administered on 09/06/18at 21:03; Start 09/04/18 at 21:00; Stop 09/07/18 at 10:24; Status DC Insulin Detemir (Levemir Insulin) 24 units QHS SC Last administered on 09/12/18at 22:19; Start 09/07/18 at 21:00; Stop 09/13/18 at 15:13; Status DC Insulin Detemir (Levemir Insulin) 28 units QHS SC Last administered on 09/19/18at 21:08; Start 09/13/18 at 21:00 Insulin Human Lispro (HumaLOG INSULIN) 2 units AC SC Last administered on 09/07/18at 07:26; Start 09/06/18 at 07:30; Stop 09/07/18 at 10:24; Status DC Insulin Human Lispro (HumaLOG INSULIN) 4 units AC SC Last administered on 09/07/18at 12:43; Start 09/07/18 at 12:00; Stop 09/07/18 at 15:04; Status DC Insulin Human Lispro (HumaLOG INSULIN) 6 units AC SC Last administered on 09/20/18at 17:33; Start 09/20/18 at 17:30 Insulin Human Lispro (HumaLOG INSULIN) 6 units AC SC Last administered on 09/13/18at 12:00; Start 09/07/18 at 17:30; Stop 09/13/18 at 15:13; Status DC Insulin Human Lispro (HumaLOG INSULIN) 10 units AC SC Last administered on 09/20/18at 08:42; Start 09/13/18 at 17:30; Stop 09/20/18 at 12:27; Status DC Insulin Human Lispro (HumaLOG INSULIN) SEE PROTOCOL TABLE AC SC Last administered on 09/20/18at 08:42; Start 09/04/18 at 17:30; Stop 09/20/18 at 12:27; Status DC Levofloxacin (Levaquin) 250 mg DAILY@06 PO Last administered on 09/15/18at 06:13; Start 09/12/18 at 06:00; Stop 09/15/18 at 11:05; Status DC Magnesium Hydroxide (Milk Of Magnesia) 30 ml DAILYPRN PRN PO CONSTIPATION; Start 09/04/18 at 16:30 Miscellaneous (Unresolved Clarification Entry) SEE LABEL COMMENTS DAILY XX ; Start 09/17/18 at 09:00; Stop 09/17/18 at 16:13; Status DC Miscellaneous (Unresolved Clarification Entry) SEE LABEL COMMENTS DAILY XX ; Start 09/10/18 at 09:00; Stop 09/11/18 at 11:29; Status DC Ondansetron HCl (Zofran) 4 mg Q6HP PRN PO NAUSEA; Start 09/04/18 at 16:30 Oxycodone/ Acetaminophen (Percocet 5mg/ 325mg Tablet) 1 tab Q4HP PRN PO MODERATE PAIN (PS 5-7); Start 09/04/18 at 16:30; Status Cancel Oxycodone/ Acetaminophen (Percocet 5mg/ 325mg Tablet) 2 tab Q4HP PRN PO SEVERE PAIN (PS 8-10); Start 09/04/18 at 16:30; Status Cancel Pantoprazole Sodium (Protonix) 40 mg DAILY PO Last administered on 09/20/18at 08:42; Start 09/05/18 at 09:00 Piperacillin Sod/ Tazobactam Sod 3.375 gm/Dextrose 50 ml @ 100 mls/hr Q6H IV ; Start 09/04/18 at 17:00; Stop 09/04/18 at 17:07; Status DC Senna (Senokot) 1 tab QHS PO Last administered on 09/12/18at 22:20; Start 09/04/18 at 21:00 Warfarin Sodium (Coumadin) 4 mg DAILY@17 PO Last administered on 09/20/18at 17:33; Start 09/11/18 at 17:00 Warfarin Sodium (Coumadin) 5 mg DAILY@17 PO Last administered on 09/10/18at 17:34; Start 09/04/18 at 17:00; Stop 09/11/18 at 10:35; Status DC GERMAINE AUSTIN MD Sep 20, 2018 18:36
[2018-09-20 20:00] VITALS: BP 122/58
[2018-09-20] MEDS: EZETIMIBE 10 MG TAB (ZETIA) PO SCH (20:09)
[2018-09-20] MEDS: LEVEMIR (INSULIN DETEMIR) 1 UNITS/0.01ML SC SCH (20:10)
[2018-09-20] MEDS: DIGOXIN 0.125 MG TAB PO SCH (20:10)
[2018-09-20] MEDS: FENOFIBRATE 145 MG TAB (TRICOR) PO SCH (20:10)
[2018-09-20] MEDS: SENNA 8.6 MG TAB (SENOKOT) PO SCH (20:21)
[2018-09-21 06:00] VITALS: BP 107/53
[2018-09-21 07:27] LABS: INR 2.17; PROTHROMBIN TIME 24.6 SECONDS (12.1-14.4)
[2018-09-21 07:38] LABS: CALCIUM LEVEL 8.8 MG/DL (8.8-10.2); CREATININE FOR GFR 1.66 MG/DL (0.70-1.30); GLOMERULAR FILTRATION RATE 42.3 (>35); POTASSIUM SERUM 3.7 MEQ/L (3.5-5.1)
[2018-09-21] MEDS: HumaLOG INSULIN (NovoLOG) PER UNIT SC SCH ×3 (07:42→16:57)
[2018-09-21] MEDS: ESCITALOPRAM OXALATE 5MG TABLET (LEXAPRO) PO SCH (08:48)
[2018-09-21] MEDS: DOCUSATE SODIUM 100 MG CAP PO SCH ×2 (08:48→20:01)
[2018-09-21] MEDS: PANTOPRAZOLE 40MG TAB (PROTONIX) PO SCH (08:48)
[2018-09-21] MEDS: FUROSEMIDE 40 MG TAB PO SCH (08:48)
[2018-09-21] MEDS: ASPIRIN 81 MG ENTERIC TAB PO SCH (08:48)
[2018-09-21] MEDS: GABAPENTIN 300 MG CAP PO SCH ×2 (08:48→20:01)
[2018-09-21] MEDS: CEFDINIR 300 MG CAP (OMNICEF) PO SCH ×2 (08:48→20:00)
[2018-09-21] MEDS: FERROUS SULFATE 325MG TAB PO SCH ×2 (08:48→20:00)
--- NOTE | 2018-09-21 12:37 | IPNPDOC ---
Date Seen The patient was seen on 09/21/18. Progress Note HISTORY OF PRESENT ILLNESS: 83-year-old male presenting status post hospital discharge from [facility]. 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 Postoperatively he experienced swelling, anemia, and was treated with IV Zosyn for pneumonia. Prior to this beginning 05/04/18 he underwent a popliteal artery to fibular a rtery bypass with reverse saphenous grafting and subsequently required amputation of his toes secondary to poor healing and gangrene. Initially he only had his first big toe amputated, however poor healing required amputation of his second and third. Eventually he was admitted to the hospital on 08/25/18 with cellulitis and left foot gangrene subsequently underwent a left-sided BKA. The pt was transferred to [facility] to the care of Dr Chao 09/04/18. He is OOB to wheelchair. No voiced complaints at this time. The pt has been noted to have a blackened area at the end of the Rt great toe. Vascular surgery consulted 09/18/18. The area has been unchanged. 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 No acute distress. Alert and oriented x 3. HEENT: Normocephalic, atraumatic. Sclera are nonicteric. Conjunctiva without injection. No facial asymmetry. Moist mucous membranes. CHEST: Regular rate and rhythm, +S1, +S2 LUNGS: Clear to auscultation bilaterally. No wheezes, rales, or rhonchi. ABD: Round, soft, non-tender, non-distended. +Bowel sounds throughout. No rebound or guarding. No costovertebral angle tenderness. EXT: Tr- 1mm Rt lower extremity edema appreciated/TEDS removed. Dressing intact Lt BKA. SKIN: [place], dry, warm. NEURO: No focal deficits appreciated. Arterial U/S RLE 09/18/18 Findings are consistent with peripheral vascular disease including possible non-visualized area of stenosis through the superficial femoral vein/popliteal artery region. Electronically Signed by Roney Yusuf MD 09/19/2018 06:05 A A&P: 83-year-old male presenting status post hospital discharge from [facility]. Patient is a poor historian, much information is obtained from the chart. 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 Postoperatively he experienced swelling, anemia, and was treated with IV Zosyn for pneumonia. Prior to this beginning 05/04/18 he underwent a popliteal artery to fibular artery bypass with reverse saphenous grafting and subsequently required amputation of his toes secondary to poor healing and gangrene. Initially he only had his first big toe amputated, however poor healing required amputation of his second and third. Eventually he was admitted to the hospital on 08/25/18 with cellulitis and left foot gangrene subsequently underwent a left-sided BKA. The pt was transferred to [facility] to the care of Dr Chao 09/04/18. 1. Left-sided below-knee amputation. H/O PAD/history of occluded bypass graft LLE. The patient was treated empirically with vancomycin during [facility] stay for suspected methicillin-resistant Staphylococcus aureus (MRSA) wound inflection. Mgmt as per [facility]. Wound care as per [facility]. Outpt F/U with vascular surgery. PT/OT Pain control. Bowel care The pt was noted to have a blackened area at the tip of the Rt great toe. It was previously noted by Dr Chao to be a blood filled blister. Arterial U/S on 09-18-18 indicative of peripheral vascular disease, seen by vascular surgery, Dr Noriega. Plan as per Dr hCao d/w Dr Noriega is to defer any RLE angiography to Dr. Rush with whom he has an appointment 10-02-18 at 10:45 am in [place]. Pt verbalizes understanding and agreement. 2. Diabetes. CC diet SSI Levemir Has had adjustments in regimen as per Dr Chao. 3. Diastolic dysfunction. No fluid overload currently. Continue Lasix 40 mg by mouth daily. Monitor. 4. Hypertension. Currently, blood pressure is in satisfactory range. Lasix po. 5. Atrial fibrillation. Rate control digoxin Anticoagulation, warfarin. The patient's INR is 2.53. Monitor PT/INR. 6. Chronic kidney disease, continue to monitor. SCr baseline appears to be 1.5-1.6. 1.59 this AM. BMP in AM. 7. History of transient ischemic attack (TIA) on aspirin. According to the record, the patient is intolerant of statin. 8. Diabetic neuropathy on gabapentin. 9. UTI. E Coli 50,000 CFU as per UC 09/13/17. Cefdinir D6/10. 10. Anemia. likely acute blood loss. Hgb 9.2. Fe BID. Monitor. VS, I&O, 24H, Fishbone Vital Signs/I&O Vital Signs Date Time Temp Pulse Resp B/P (MAP) Pulse Ox O2 Delivery O2 Flow Rate FiO2 09/21/18 06:00 97.1 57 19 107/53 (71) 93 Room Air I&O- Last 24 Hours up to 6 AM 09/21/18 05:59 Intake Total 1320 ml Output Total 1800 ml Balance -480 ml Laboratory Data 24H LABS Laboratory Tests 2 09/20/18 16:33: Bedside Glucose (Misc Panel) 233H 09/20/18 19:52: Bedside Glucose (Misc Panel) 200H 09/21/18 05:58: Bedside Glucose (Misc Panel) 129H 09/21/18 06:39: Prothrombin Time 24.6H, Prothromb Time International Ratio 2.17, Anion Gap 7L, Glomerular Filtration Rate 42.3, Blood Urea Nitrogen 32H, Creatinine 1.66H, Sodium Level 138, Potassium Level 3.7, Chloride Level 104, Carbon Dioxide Level 27, Calcium Level 8.8 09/21/18 11:37: Bedside Glucose (Misc Panel) 139H CBC/BMP Laboratory Tests 09/21/18 06:39 Calcium Level 8.8 Nia Epperson Sep 21, 2018 12:37
[2018-09-21 14:00] VITALS: BP 115/56
[2018-09-21] MEDS: WARFARIN SOD 2 MG TAB PO SCH (16:57)
[2018-09-21 19:51] VITALS: BP 123/58
[2018-09-21] MEDS: FENOFIBRATE 145 MG TAB (TRICOR) PO SCH (20:00)
[2018-09-21] MEDS: DIGOXIN 0.125 MG TAB PO SCH (20:00)
[2018-09-21] MEDS: LEVEMIR (INSULIN DETEMIR) 1 UNITS/0.01ML SC SCH (20:01)
[2018-09-21] MEDS: EZETIMIBE 10 MG TAB (ZETIA) PO SCH (20:01)
[2018-09-21] MEDS: SENNA 8.6 MG TAB (SENOKOT) PO SCH (20:02)
--- NOTE | 2018-09-21 21:22 | IPNPDOC ---
PM&R Progress Note DATE OF SERVICE: Sep 21, 2018 [employer] Decorating Consultant Progress Note Subjective: Patient seen in the gym working on trunk control and balance for fall prevention, appeared to be in good spirits, no complaints. REVIEW OF SYSTEMS: The following is a completed review of systems and has been reviewed. Review of systems otherwise unremarkable. PAIN: Patient self reports no pain EYES: Negative for recent vision changes. EARS, NOSE, & THROAT:+PAIMIUT, no dysphagia or rhinorrhea CARDIOVASCULAR: denies chest pain or palpitations PULMONARY: Negative. Denies shortness of breath GASTROINTESTINAL: Negative for constipation or diarrhea GENITOURINARY: Negative for dysuria MUSCULOSKELETAL: left BKA NEUROLOGICAL: +distal neuropathy HEMATOLOGICAL: bilat UE ecchymosis SKIN: left BKA incision PSYCHIATRIC: Unremarkable All other review of systems found to be negative. PHYSICAL EXAMINATION: VITAL SIGNS: Please see below. GENERAL: Pleasant and cooperative. No acute distress. HEENT: PERRL. Extraocular movements intact. Clear conjunctiva, +glasses CARDIOVASCULAR: Irregular rate and rhythm. No murmurs, rubs, or gallops LUNGS: Clear to auscultation bilaterally. No wheezes. No rhonchi ABDOMEN: Soft, nontender, nondistended. Positive bowel sounds. Normal active bowel sounds NEUROLOGICAL: Alert and oriented times three. Cranial nerves II through XII grossly intact. Sensation grossly intact except diminished right LE EXTREMITIES: 5-\5 strength bilateral upper extremities.5-\5 strength right hip flexors and knee extensors, 2/5 ankle DF and 0/5 EHL 5-/5 strength in left hip flexors, knee extensors and flexors lower extremity. . SKIN: left residual limb with sutures and kennedy, mild erythema, minimal swelling, +sternotomy scar +right foot D1 black (blood filled) blister, does not appear to be a pressure ulcer or DTI, stable ASSESSMENT:84-year-old M with past medical history of CAD, DM, PAD who presents status post Left BKA. PLAN: 1. Rehab: PT, OT, assess for DME, keep residual limb in extension to prevent flexion contracture, transfers gradually improving with slide board, improving toilet transfers, nearly read for room privileges 2. Neuro: stable, hx of TIAs, continue ASA and statin for secondary stroke prevention- monitor BPs and adjust meds prn 3. CArdio: pmh Afic, AVR and mitral valve repair, with chronic diastolic CHF- continue digoxin, Coumadin, and lasix- medicine consulted, recs appreciated 4. 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 Endo: pmh uncontrolled DM continue insulin coverage and adjust, consider restarting oral agents-stable 6. ID: s/p recent course of IV ZOsyn and Vanco, monitor for infection- stable 7. : admission UA negative, however Ux + E. coli, repeat UA with trace LE, also + E.coli, continue Cefdinir 8. DVT ppx: on Coumadin 9. GI ppx: Protonix 10. Skin: daily dressing changes, monitor right foot D1 blister very slightly larger, continue to apply skin prep- Arterial on 09-18-18 positive for peripheral vascular disease, seen by vascular surgery in house and will defer any RLE ang iography to Dr. Rush with whom he has an appointment 10-02-18 at 10:45 am in [place] 11. Dispo: was scheduled for 09-20-18 however having difficulty with safety awareness will post-pone d/c until 09/26 to home Patient is currently wheelchair bound and cannot complete his MADLs without the use of one. He is unsteady on his leg, lacks proprioception and is at high risk of falling. His house is wheelchair accessible, he is agreeable to using one, and his family members have agreed to help him use it. Having a wheelchair will greatly improve his ability to complete his activities of daily living in a safe way. Allergies Coded Allergies: Statins (Unverified Adverse Reaction, Mild, LEGS FEEL HEAVY, 09/04/18) Vital Signs Vital Signs Date Time Temp Pulse Resp B/P (MAP) Pulse Ox O2 Delivery O2 Flow Rate FiO2 09/21/18 20:00 58 09/21/18 19:51 97.6 18 123/58 (79) 98 Room Air Laboratory Data CBC/BMP Laboratory Tests 09/21/18 06:39 Calcium Level 8.8 Labs 24H Laboratory Tests 2 09/21/18 05:58: Bedside Glucose (Misc Panel) 129H 09/21/18 06:39: Prothrombin Time 24.6H, Prothromb Time International Ratio 2.17, Anion Gap 7L, Glomerular Filtration Rate 42.3, Blood Urea Nitrogen 32H, Creatinine 1.66H, Sodium Level 138, Potassium Level 3.7, Chloride Level 104, Carbon Dioxide Level 27, Calcium Level 8.8 09/21/18 11:37: Bedside Glucose (Misc Panel) 139H 09/21/18 16:51: Bedside Glucose (Misc Panel) 210H 09/21/18 19:57: Bedside Glucose (Misc Panel) 240H Current Medications Current Medications Current Medications Acetaminophen (Tylenol Tab) 650 mg Q4HP PRN PO fever/MILD PAIN (PS 1-4) Last administered on 09/17/18 22:28; Start 09/04/18 at 16:30 Albuterol/ Ipratropium (Duoneb (Ipr 0.5mg/Alb 2.5mg)) 3 ml Q6HP PRN NEB SOB/WHEEZING; Start 09/04/18 at 17:00 Aspirin (Ecotrin) 81 mg DAILY PO Last administered on 09/21/18at 08:48; Start 09/05/18 at 09:00 Bisacodyl (Dulcolax Suppository) 10 mg DAILYPRN PRN GA CONSTIPATION; Start 09/04/18 at 16:30 Cefdinir (Omnicef) 300 mg BID PO Last administered on 09/21/18at 20:00; Start 09/15/18 at 21:00; Stop 09/25/18 at 09:01 Dextrose (Dextrose 50%) 25 ml ASDIRECTED PRN IV SEE LABEL COMMENTS; Start 09/04/18 at 17:00 Diazepam (Valium) 2 mg Q8HP PRN PO spasm; Start 09/04/18 at 17:00; Stop 09/11/18 at 11:26; Status DC Digoxin (Lanoxin) 0.125 mg DAILY@2100 PO Last administered on 09/21/18at 20:00; Start 09/04/18 at 21:00 Docusate Sodium (Colace) 100 mg BID PO Last administered on 09/21/18at 08:48; Start 09/04/18 at 21:00 Doxycycline Hyclate (Vibramycin) 100 mg BID PO ; Start 09/04/18 at 21:00; Stop 09/04/18 at 21:00; Status DC Escitalopram Oxalate (Lexapro) 5 mg DAILY PO Last administered on 09/21/18 08:48; Start 09/05/18 at 09:00 EZETIMIBE (Zetia) 10 mg QHS PO Last administered on 09/21/18at 20:01; Start at 21:00 Fenofibrate (Tricor) 145 mg DAILY@2100 PO Last administered on 09/21/18at 20:00; Start 09/04/18 at 21:00 Ferrous Sulfate (Ferrous Sulfate) 325 mg BID PO Last administered on 09/21/18at 20:00; Start 09/04/18 at 21:00 Furosemide (Lasix) 40 mg DAILY PO Last administered on 09/21/18at 08:48; Start 09/05/18 at 09:00 Gabapentin (Neurontin) 300 mg BID PO Last administered on 09/21/18at 20:01; Start 09/04/18 at 21:00 Glucagon (Glucagon) 1 mg ASDIRECTED PRN SC SEE LABEL COMMENTS; Start 09/04/18 at 17:00 Glucose (Glucose) 16 GM ASDIRECTED PRN PO SEE LABEL COMMENTS; Start 09/04/18 at 17:00 Home Med (Med Rec Complete!) ASDIRECTED XX ; Start 09/04/18 at 13:30; Stop 09/04/18 at 13:30; Status DC Insulin Detemir (Levemir Insulin) 20 units QHS SC Last administered on 09/06/18at 21:03; Start 09/04/18 at 21:00; Stop 09/07/18 at 10:24; Status DC Insulin Detemir (Levemir Insulin) 24 units QHS SC Last administered on 09/12/18at 22:19; Start 09/07/18 at 21:00; Stop 09/13/18 at 15:13; Status DC Insulin Detemir (Levemir Insulin) 28 units QHS SC Last administered on 09/21/18at 20:01; Start 09/13/18 at 21:00 Insulin Human Lispro (HumaLOG INSULIN) 2 units AC SC Last administered on at 07:26; Start 09/06/18 at 07:30; Stop 09/07/18 at 10:24; Status DC Insulin Human Lispro (HumaLOG INSULIN) 4 units AC SC Last administered on 09/07/18at 12:43; Start 09/07/18 at 12:00; Stop 09/07/18 at 15:04; Status DC Insulin Human Lispro (HumaLOG INSULIN) 6 units AC SC Last administered on 09/21/18at 16:57; Start 09/20/18 at 17:30 Insulin Human Lispro (HumaLOG INSULIN) 6 units AC SC Last administered on 09/13/18at 12:00; Start 09/07/18 at 17:30; Stop 09/13/18 at 15:13; Status DC Insulin Human Lispro (HumaLOG INSULIN) 10 units AC SC Last administered on 09/20/18at 08:42; Start 09/13/18 at 17:30; Stop 09/20/18 at 12:27; Status DC Insulin Human Lispro (HumaLOG INSULIN) SEE PROTOCOL TABLE AC SC Last administered on 09/20/18at 08:42; Start 09/04/18 at 17:30; Stop 09/20/18 at 12:27; Status DC Levofloxacin (Levaquin) 250 mg DAILY@06 PO Last administered on 09/15/18at 06:13; Start 09/12/18 at 06:00; Stop 09/15/18 at 11:05; Status DC Magnesium Hydroxide (Milk Of Magnesia) 30 ml DAILYPRN PRN PO CONSTIPATION; Start 09/04/18 at 16:30 Miscellaneous (Unresolved Clarification Entry) SEE LABEL COMMENTS DAILY XX ; Start 09/17/18 at 09:00; Stop 09/17/18 at 16:13; Status DC Miscellaneous (Unresolved Clarification Entry) SEE LABEL COMMENTS DAILY XX ; Start 09/10/18 at 09:00; Stop 09/11/18 at 11:29; Status DC Ondansetron HCl (Zofran) 4 mg Q6HP PRN PO NAUSEA; Start 09/04/18 at 16:30 Oxycodone/ Acetaminophen (Percocet 5mg/ 325mg Tablet) 1 tab Q4HP PRN PO MODERATE PAIN (PS 5-7); Start 09/04/18 at 16:30; Status Cancel Oxycodone/ Acetaminophen (Percocet 5mg/ 325mg Tablet) 2 tab Q4HP PRN PO SEVERE PAIN (PS 8-10); Start 09/04/18 at 16:30; Status Cancel Pantoprazole Sodium (Protonix) 40 mg DAILY PO Last administered on 09/21/18at 08:48; Start 09/05/18 at 09:00 Piperacillin Sod/ Tazobactam Sod 3.375 gm/Dextrose 50 ml @ 100 mls/hr Q6H IV ; Start 09/04/18 at 17:00; Stop 09/04/18 at 17:07; Status DC Senna (Senokot) 1 tab QHS PO Last administered on 09/12/18at 22:20; Start 09/04/18 at 21:00 Warfarin Sodium (Coumadin) 4 mg DAILY@17 PO Last administered on 09/21/18at 16:57; Start 09/11/18 at 17:00 Warfarin Sodium (Coumadin) 5 mg DAILY@17 PO Last administered on 09/10/18at 17:34; Start 09/04/18 at 17:00; Stop 09/11/18 at 10:35; Status DC GERMAINE AUSTIN MD Sep 21, 2018 21:21
[2018-09-22 06:24] VITALS: BP 129/63
[2018-09-22 07:38] LABS: INR 2.12; PROTHROMBIN TIME 24.2 SECONDS (12.1-14.4)
[2018-09-22] MEDS: GABAPENTIN 300 MG CAP PO SCH (08:47)
[2018-09-22] MEDS: DOCUSATE SODIUM 100 MG CAP PO SCH ×2 (08:47→20:38)
[2018-09-22] MEDS: ESCITALOPRAM OXALATE 5MG TABLET (LEXAPRO) PO SCH (08:47)
[2018-09-22] MEDS: CEFDINIR 300 MG CAP (OMNICEF) PO SCH ×2 (08:47→20:16)
[2018-09-22] MEDS: FUROSEMIDE 40 MG TAB PO SCH (08:47)
[2018-09-22] MEDS: PANTOPRAZOLE 40MG TAB (PROTONIX) PO SCH (08:47)
[2018-09-22] MEDS: ASPIRIN 81 MG ENTERIC TAB PO SCH (08:47)
[2018-09-22] MEDS: FERROUS SULFATE 325MG TAB PO SCH ×2 (08:47→20:16)
[2018-09-22] MEDS: HumaLOG INSULIN (NovoLOG) PER UNIT SC SCH ×3 (08:48→17:38)
--- NOTE | 2018-09-22 11:43 | IPNPDOC ---
Date Seen The patient was seen on 09/22/18. Progress Note HISTORY OF PRESENT ILLNESS: 83-year-old male presenting status post hospital discharge from [facility]. 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 Postoperatively he experienced swelling, anemia, and was treated with IV Zosyn for pneumonia. Prior to this beginning 05/04/18 he underwent a popliteal artery to fibular artery bypass with reverse saphenous grafting and subsequently required amputation of his toes secondary to poor healing and gangrene. Initially he only had his first big toe amputated, however poor healing required amputation of his second and third. Eventually he was admitted to the hospital on 08/25/18 with cellulitis and left foot gangrene subsequently underwent a left-sided BKA. The pt was transferred to [facility] to the care of Dr Chao 09/04/18. He is OOB to wheelchair. No voiced complaints at this time. Family at bedside. The pt has been noted to have a blackened area at the end of the Rt great toe. Vascular surgery consulted 09/18/18. The area has been unchanged. 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 No acute distress. Alert and oriented x 3. HEENT: Normocephalic, atraumatic. Sclera are nonicteric. Conjunctiva without injection. No facial asymmetry. Moist mucous membranes. CHEST: Regular rate and rhythm, +S1, +S2 LUNGS: Clear to auscultation bilaterally. No wheezes, rales, or rhonchi. ABD: Round, soft, non-tender, non-distended. +Bowel sounds throughout. No rebound or guarding. No costovertebral angle tenderness. EXT: Tr- 1mm Rt lower extremity edema appreciated/TEDS removed. Dressing intact Lt BKA. There is a small blackened oval area at the tip of the Rt Great toes which appears to be unchanged from prior. No surrounding erythema or drainage noted. SKIN: [place], dry, warm. NEURO: No focal deficits appreciated. Arterial U/S RLE 09/18/18 Findings are consistent with peripheral vascular disease including possible non-visualized area of stenosis through the superficial femoral vein/popliteal artery region. Electronically Signed by Roney Yusuf MD 09/19/2018 06:05 A A&P: 83-year-old male presenting status post hospital discharge from [facility]. Patient is a poor historian, much information is obtained from the chart. 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 Postoperatively he experienced swelling, anemia, and was treated with IV Zosyn for pneumonia. Prior to this beginning 05/04/18 he underwent a popliteal artery to fibular artery bypass with reverse saphenous grafting and subsequently required amputation of his toes secondary to poor healing and gangrene. Initially he only had his first big toe amputated, however poor healing required amputation of his second and third. Eventually he was admitted to the hospital on 08/25/18 with cellulitis and left foot gangrene subsequently underwent a left-sided BKA. The pt was transferred to [facility] to the care of Dr Chao 09/04/18. 1. Left-sided below-knee amputation. H/O PAD/history of occluded bypass graft LLE. The patient was treated empirically with vancomycin during [facility] stay for suspected methicillin-resistant Staphylococcus aureus (MRSA) wound inflection. Mgmt as per [facility]. Wound care as per [facility]. Outpt F/U with vascular surgery. PT/OT Pain control. Bowel care The pt was noted to have a blackened area at the tip of the Rt great toe. It was previously noted by Dr Chao to be a blood filled blister. The area has remained unchanged. Arterial U/S on 09-18-18 indicative of peripheral vascular disease, seen by vascular surgery, Dr Noriega. Plan as per Dr Chao d/w Dr Noriega is to defer any RLE angiography to Dr. Rush with whom he has an appointment 10-02-18 at 10:45 am in [place]. Pt verbalizes understanding and agreement. 2. Diabetes. CC diet SSI Levemir Has had adjustments in regimen as per Dr Chao. 3. Diastolic dysfunction. No fluid overload currently. Continue Lasix 40 mg by mouth daily. Monitor. 4. Hypertension. Currently, blood pressure is in satisfactory range. Lasix po. 5. Atrial fibrillation. Rate control digoxin Anticoagulation, warfarin. The patient's INR is 2.12. Monitor PT/INR. 6. Chronic kidney disease, continue to monitor. SCr baseline appears to be 1.5-1.6. 1.66 this AM. BMP 09/25. 7. History of transient ischemic attack (TIA) on aspirin. According to the record, the patient is intolerant of statin. 8. Diabetic neuropathy on gabapentin. 9. UTI. E Coli 50,000 CFU as per UC 09/13/17. Cefdinir D7/10. 10. Anemia. likely acute blood loss. Hgb 9.2. Fe BID. Monitor. VS, I&O, 24H, Fishbone Vital Signs/I&O Vital Signs Date Time Temp Pulse Resp B/P (MAP) Pulse Ox O2 Delivery O2 Flow Rate FiO2 09/22/18 06:24 98.0 55 14 129/63 (85) 97 Room Air I&O- Last 24 Hours up to 6 AM 09/22/18 06:00 Intake Total 1740 ml Balance 1740 ml Laboratory Data 24H LABS Laboratory Tests 2 09/21/18 16:51: Bedside Glucose (Misc Panel) 210H 09/21/18 19:57: Bedside Glucose (Misc Panel) 240H 09/22/18 06:00: Bedside Glucose (Misc Panel) 165H 09/22/18 07:04: Prothrombin Time 24.2H, Prothromb Time International Ratio 2.12 Nia Epperson Sep 22, 2018 11:43
[2018-09-22 14:00] VITALS: BP 117/54
[2018-09-22] MEDS: WARFARIN SOD 2 MG TAB PO SCH (17:37)
[2018-09-22 20:00] VITALS: BP 121/52
[2018-09-22] MEDS: EZETIMIBE 10 MG TAB (ZETIA) PO SCH (20:16)
[2018-09-22] MEDS: DIGOXIN 0.125 MG TAB PO SCH (20:16)
[2018-09-22] MEDS: FENOFIBRATE 145 MG TAB (TRICOR) PO SCH (20:16)
[2018-09-22] MEDS: LEVEMIR (INSULIN DETEMIR) 1 UNITS/0.01ML SC SCH (20:17)
[2018-09-22] MEDS: SENNA 8.6 MG TAB (SENOKOT) PO SCH (20:38)
[2018-09-23 06:00] VITALS: BP 123/60
[2018-09-23 07:47] LABS: INR 2.17; PROTHROMBIN TIME 24.6 SECONDS (12.1-14.4)
[2018-09-23] MEDS: FUROSEMIDE 40 MG TAB PO SCH (08:34)
[2018-09-23] MEDS: PANTOPRAZOLE 40MG TAB (PROTONIX) PO SCH (08:34)
[2018-09-23] MEDS: CEFDINIR 300 MG CAP (OMNICEF) PO SCH ×2 (08:34→20:49)
[2018-09-23] MEDS: ASPIRIN 81 MG ENTERIC TAB PO SCH (08:34)
[2018-09-23] MEDS: DOCUSATE SODIUM 100 MG CAP PO SCH ×2 (08:34→20:49)
[2018-09-23] MEDS: ESCITALOPRAM OXALATE 5MG TABLET (LEXAPRO) PO SCH (08:34)
[2018-09-23] MEDS: HumaLOG INSULIN (NovoLOG) PER UNIT SC SCH ×3 (08:34→17:01)
[2018-09-23] MEDS: GABAPENTIN 300 MG CAP PO SCH (08:34)
[2018-09-23] MEDS: FERROUS SULFATE 325MG TAB PO SCH ×2 (08:35→20:49)
[2018-09-23 14:00] VITALS: BP 113/54
[2018-09-23] MEDS: WARFARIN SOD 2 MG TAB PO SCH (17:00)
[2018-09-23 20:00] VITALS: BP 125/77
--- NOTE | 2018-09-23 20:01 | IPNPDOC ---
PM&R Progress Note DATE OF SERVICE: Sep 22, 2018 Concrete Inspector Progress Note Subjective: Patient seen in his room with [id number] feeling confident for room privileges. REVIEW OF SYSTEMS: The following is a completed review of systems and has been reviewed. Review of systems otherwise unremarkable. PAIN: Patient self reports no pain EYES: Negative for recent vision changes. EARS, NOSE, & THROAT:+PAIMIUT, no dysphagia or rhinorrhea CARDIOVASCULAR: denies chest pain or palpitations PULMONARY: Negative. Denies shortness of breath GASTROINTESTINAL: Negative for constipation or diarrhea GENITOURINARY: Negative for dysuria MUSCULOSKELETAL: left BKA NEUROLOGICAL: +distal neuropathy HEMATOLOGICAL: bilat UE ecchymosis SKIN: left BKA incision PSYCHIATRIC: Unremarkable All other review of systems found to be negative. PHYSICAL EXAMINATION: VITAL SIGNS: Please see below. GENERAL: Pleasant and cooperative. No acute distress. HEENT: PERRL. Extraocular movements intact. Clear conjunctiva, +glasses CARDIOVASCULAR: Irregular rate and rhythm. No murmurs, rubs, or gallops LUNGS: Clear to auscultation bilaterally. No wheezes. No rhonchi ABDOMEN: Soft, nontender, nondistended. Positive bowel sounds. Normal active bowel sounds NEUROLOGICAL: Alert and oriented times three. Cranial nerves II through XII grossly intact. Sensation grossly intact except diminished right LE EXTREMITIES: 5-\5 strength bilateral upper extremities.5-\5 strength right hip flexors and knee extensors, 2/5 ankle DF and 0/5 EHL 5-/5 strength in left hip flexors, knee extensors and flexors lower extremity. . SKIN: left residual limb with sutures and kennedy, mild erythema, minimal swelling, +sternotomy scar +right foot D1 black (blood filled) blister, does not appear to be a pressure ulcer or DTI, stable ASSESSMENT:84-year-old M with past medical history of CAD, DM, PAD who presents status post Left BKA. PLAN: 1. Rehab: PT, OT, assess for DME, keep residual limb in extension to prevent flexion contracture, transfers gradually improving with slide board, improving toilet transfers, ready for room privielges 2. Neuro: stable, hx of TIAs, continue ASA and statin for secondary stroke prevention- monitor BPs and adjust meds prn 3. CArdio: pmh Afic, AVR and mitral valve repair, with chronic diastolic CHF- continue digoxin, Coumadin, and lasix- medicine consulted, recs appreciated 4. 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 Endo: pmh uncontrolled DM continue insulin coverage and adjust, consider restarting oral agents-stable 6. ID: s/p recent course of IV ZOsyn and Vanco, monitor for infection- stable 7. : admission UA negative, however Ux + E. coli, repeat UA with trace LE, also + E.coli, continue Cefdinir 8. DVT ppx: on Coumadin 9. GI ppx: Protonix 10. Skin: daily dressing changes, monitor right foot D1 blister very slightly larger, continue to apply skin prep- Arterial on 09-18-18 positive for peripheral vascular disease, seen by vascular surgery in house and will defer any RLE angiography to Dr. Rush with whom he has an appointment 10-02-18 at 10:45 am in [place] 11. Dispo: was scheduled for 09-20-18 however having difficulty with safety awareness will post-pone d/c until 09/26 to home Patient is currently wheelchair bound and cannot complete his MADLs without the use of one. He is unsteady on his leg, lacks proprioception and is at high risk of falling. His house is wheelchair accessible, he is agreeable to using one, and his family members have agreed to help him use it. Having a wheelchair will greatly improve his ability to complete his activities of daily living in a safe way. Allergies Coded Allergies: Statins (Unverified Adverse Reaction, Mild, LEGS FEEL HEAVY, 09/04/18) Vital Signs Vital Signs Date Time Temp Pulse Resp B/P (MAP) Pulse Ox O2 Delivery O2 Flow Rate FiO2 09/23/18 14:00 97.9 56 18 113/54 (73) 97 Room Air Laboratory Data Labs 24H Laboratory Tests 2 09/22/18 20:18: Bedside Glucose (Misc Panel) 225H 09/23/18 05:36: Bedside Glucose (Misc Panel) 197H 09/23/18 06:59: Prothrombin Time 24.6H, Prothromb Time International Ratio 2.17 09/23/18 11:36: Bedside Glucose (Misc Panel) 172H 09/23/18 16:44: Bedside Glucose (Misc Panel) 155H Current Medications Current Medications Current Medications Acetaminophen (Tylenol Tab) 650 mg Q4HP PRN PO fever/MILD PAIN (PS 1-4) Last administered on 09/17/18at 22:28; Start 09/04/18 at 16:30 Albuterol/ Ipratropium (Duoneb (Ipr 0.5mg/Alb 2.5mg)) 3 ml Q6HP PRN NEB SOB/WHEEZING; Start 09/04/18 at 17:00 Aspirin (Ecotrin) 81 mg DAILY PO Last administered on 09/23/18 08:34; Start 09/05/18 at 09:00 Bisacodyl (Dulcolax Suppository) 10 mg DAILYPRN PRN OK CONSTIPATION; Start 09/04/18 at 16:30 Cefdinir (Omnicef) 300 mg BID PO Last administered on 09/23/18 08:34; Start 09/15/18 at 21:00; Stop 09/25/18 at 09:01 Dextrose (Dextrose 50%) 25 ml ASDIRECTED PRN IV SEE LABEL COMMENTS; Start 09/04/18 at 17:00 Diazepam (Valium) 2 mg Q8HP PRN PO spasm; Start 09/04/18 at 17:00; Stop 09/11/18 at 11:26; Status DC Digoxin (Lanoxin) 0.125 mg DAILY@2100 PO Last administered on 09/22/18at 20:16; Start 09/04/18 at 21:00 Docusate Sodium (Colace) 100 mg BID PO Last administered on 09/23/18 08:34; Start 09/04/18 at 21:00 Doxycycline Hyclate (Vibramycin) 100 mg BID PO ; Start 09/04/18 at 21:00; Stop 09/04/18 at 21:00; Status DC Escitalopram Oxalate (Lexapro) 5 mg DAILY PO Last administered on 09/23/18 08:34; Start 09/05/18 at 09:00 EZETIMIBE (Zetia) 10 mg QHS PO Last administered on 09/22/18at 20:16; Start 09/04/18 at 21:00 Fenofibrate (Tricor) 145 mg DAILY@2100 PO Last administered on 1/18/19at 20:16; Start 09/04/18 at 21:00 Ferrous Sulfate (Ferrous Sulfate) 325 mg BID PO Last administered on 09/23/18at 08:35; Start 09/04/18 at 21:00 Furosemide (Lasix) 40 mg DAILY PO Last administered on 09/23/18at 08:34; Start 09/05/18 at 09:00 Gabapentin (Neurontin) 300 mg BID PO Last administered on 09/21/18at 20:01; Start 09/04/18 at 21:00; Stop 09/21/18 at 21:19; Status DC Gabapentin (Neurontin) 300 mg DAILY PO Last administered on 09/23/18at 08:34; Start 09/22/18 at 09:00 Glucagon (Glucagon) 1 mg ASDIRECTED PRN SC SEE LABEL COMMENTS; Start 09/04/18 at 17:00 Glucose (Glucose) 16 GM ASDIRECTED PRN PO SEE LABEL COMMENTS; Start 09/04/18 at 17:00 Home Med (Med Rec Complete!) ASDIRECTED XX ; Start 09/04/18 at 13:30; Stop 09/04/18 at 13:30; Status DC Insulin Detemir (Levemir Insulin) 20 units QHS SC Last administered on 09/06/18at 21:03; Start 09/04/18 at 21:00; Stop 09/07/18 at 10:24; Status DC Insulin Detemir (Levemir Insulin) 24 units QHS SC Last administered on 09/12/18at 22:19; Start 09/07/18 at 21:00; Stop 09/13/18 at 15:13; Status DC Insulin Detemir (Levemir Insulin) 28 units QHS SC Last administered on 09/21/18at 20:01; Start 09/13/18 at 21:00; Stop 09/21/18 at 21:19; Status DC Insulin Detemir (Levemir Insulin) 30 units QHS SC Last administered on 09/22/18at 20:17; Start 09/22/18 at 21:00 Insulin Human Lispro (HumaLOG INSULIN) 2 units AC SC Last administered on 09/07/18at 07:26; Start 09/06/18 at 07:30; Stop 09/07/18 at 10:24; Status DC Insulin Human Lispro (HumaLOG INSULIN) 4 units AC SC Last administered on 09/07/18at 12:43; Start 09/07/18 at 12:00; Stop 09/07/18 at 15:04; Status DC Insulin Human Lispro (HumaLOG INSULIN) 6 units AC SC Last administered on 09/21/18at 16:57; Start 09/20/18 at 17:30; Stop 09/21/18 at 21:19; Status DC Insulin Human Lispro (HumaLOG INSULIN) 6 units AC SC Last administered on 09/13/18at 12:00; Start 09/07/18 at 17:30; Stop 09/13/18 at 15:13; Status DC Insulin Human Lispro (HumaLOG INSULIN) 8 units AC SC Last administered on 09/23/18at 17:01; Start 09/22/18 at 07:30 Insulin Human Lispro (HumaLOG INSULIN) 10 units AC SC Last administered on 09/20/18at 08:42; Start 09/13/18 at 17:30; Stop 09/20/18 at 12:27; Status DC Insulin Human Lispro (HumaLOG INSULIN) SEE PROTOCOL TABLE AC SC Last administered on 09/20/18at 08:42; Start 09/04/18 at 17:30; Stop 09/20/18 at 12:27; Status DC Levofloxacin (Levaquin) 250 mg DAILY@06 PO Last administered on 09/15/18at 06:13; Start 09/12/18 at 06:00; Stop 09/15/18 at 11:05; Status DC Magnesium Hydroxide (Milk Of Magnesia) 30 ml DAILYPRN PRN PO CONSTIPATION; Start 09/04/18 at 16:30 Miscellaneous (Unresolved Clarification Entry) SEE LABEL COMMENTS DAILY XX ; Start 09/17/18 at 09:00; Stop 09/17/18 at 16:13; Status DC Miscellaneous (Unresolved Clarification Entry) SEE LABEL COMMENTS DAILY XX ; Start 09/10/18 at 09:00; Stop 09/11/18 at 11:29; Status DC Miscellaneous (Unresolved Patient Own Med Order) SEE LABEL COMMENTS DAILY XX ; Start 09/23/18 at 09:00 Ondansetron HCl (Zofran) 4 mg Q6HP PRN PO NAUSEA; Start 09/04/18 at 16:30 Oxycodone/ Acetaminophen (Percocet 5mg/ 325mg Tablet) 1 tab Q4HP PRN PO MODERATE PAIN (PS 5-7); Start 09/04/18 at 16:30; Status Cancel Oxycodone/ Acetaminophen (Percocet 5mg/ 325mg Tablet) 2 tab Q4HP PRN PO SEVERE PAIN (PS 8-10); Start 09/04/18 at 16:30; Status Cancel Pantoprazole Sodium (Protonix) 40 mg DAILY PO Last administered on 09/23/18at 08:34; Start 09/05/18 at 09:00 Piperacillin Sod/ Tazobactam Sod 3.375 gm/Dextrose 50 ml @ 100 mls/hr Q6H IV ; Start 09/04/18 at 17:00; Stop 09/04/18 at 17:07; Status DC Senna (Senokot) 1 tab QHS PO Last administered on 09/12/18at 22:20; Start 09/04/18 at 21:00 Warfarin Sodium (Coumadin) 4 mg DAILY@17 PO Last administered on 09/23/18at 17:00; Start 09/11/18 at 17:00 Warfarin Sodium (Coumadin) 5 mg DAILY@17 PO Last administered on 09/10/18at 17:34; Start 09/04/18 at 17:00; Stop 09/11/18 at 10:35; Status DC GERMAINE AUSTIN MD Sep 23, 2018 20:01
[2018-09-23] MEDS: FENOFIBRATE 145 MG TAB (TRICOR) PO SCH (20:48)
[2018-09-23] MEDS: SENNA 8.6 MG TAB (SENOKOT) PO SCH (20:49)
[2018-09-23] MEDS: EZETIMIBE 10 MG TAB (ZETIA) PO SCH (20:49)
[2018-09-23] MEDS: DIGOXIN 0.125 MG TAB PO SCH (20:49)
[2018-09-23] MEDS: LEVEMIR (INSULIN DETEMIR) 1 UNITS/0.01ML SC SCH (20:49)
[2018-09-23] MEDS: ACETAMINOPHEN TAB 650MG DOSE (2X325MG) PO PRN (20:50)
[2018-09-24 06:00] VITALS: BP 133/63
[2018-09-24 07:24] LABS: INR 2.26; PROTHROMBIN TIME 25.4 SECONDS (12.1-14.4)
[2018-09-24] MEDS: HumaLOG INSULIN (NovoLOG) PER UNIT SC SCH ×3 (08:03→17:31)
[2018-09-24] MEDS: FERROUS SULFATE 325MG TAB PO SCH ×2 (08:03→21:06)
[2018-09-24] MEDS: GABAPENTIN 300 MG CAP PO SCH (08:03)
[2018-09-24] MEDS: PANTOPRAZOLE 40MG TAB (PROTONIX) PO SCH (08:03)
[2018-09-24] MEDS: CEFDINIR 300 MG CAP (OMNICEF) PO SCH ×2 (08:03→21:06)
[2018-09-24] MEDS: ESCITALOPRAM OXALATE 5MG TABLET (LEXAPRO) PO SCH (08:03)
[2018-09-24] MEDS: DOCUSATE SODIUM 100 MG CAP PO SCH ×2 (08:03→21:07)
[2018-09-24] MEDS: FUROSEMIDE 40 MG TAB PO SCH (08:03)
[2018-09-24] MEDS: ASPIRIN 81 MG ENTERIC TAB PO SCH (08:03)
[2018-09-24 14:00] VITALS: BP 113/54
[2018-09-24] MEDS: WARFARIN SOD 2 MG TAB PO SCH (17:31)
[2018-09-24] MEDS: LEVEMIR (INSULIN DETEMIR) 1 UNITS/0.01ML SC SCH (21:06)
[2018-09-24] MEDS: FENOFIBRATE 145 MG TAB (TRICOR) PO SCH (21:06)
[2018-09-24] MEDS: EZETIMIBE 10 MG TAB (ZETIA) PO SCH (21:06)
[2018-09-24] MEDS: DIGOXIN 0.125 MG TAB PO SCH (21:07)
[2018-09-24] MEDS: SENNA 8.6 MG TAB (SENOKOT) PO SCH (21:07)
[2018-09-24 22:00] VITALS: BP 117/56
[2018-09-25 06:00] VITALS: BP 120/56
[2018-09-25 06:08] LABS: BASO # 0.1 10^3/uL (0.0-0.2); BASO % 1.3 % (0.0-1.0); EOS # 0.3 10^3/uL (0.0-0.50); EOS % 6.2 % (0.0-3.0); HEMATOCRIT 28.4 % (42.0-52.0); HEMOGLOBIN 9.4 g/dl (13.5-17.5); LYMPH # 1.3 10^3/uL (1.5-4.5); LYMPH % 23.7 % (24.0-44.0); MEAN CORPUSCULAR HEMOGLOBIN 31.1 pg (27.0-33.0); MEAN CORPUSCULAR HGB CONC 33.1 g/dl (32.0-36.5); MONO # 0.6 10^3/uL (0.0-0.8); MONO % 11.1 % (0.0-5.0); NEUTROPHILS % 56.6 % (36.0-66.0); PLATELET COUNT, AUTOMATED 191 10^3/uL (150-450); RED BLOOD COUNT 3.02 10^6/uL (4.30-6.10); WHITE BLOOD COUNT 5.3 10^3/uL (4.0-10.0)
[2018-09-25 06:22] LABS: INR 2.47; PROTHROMBIN TIME 27.3 SECONDS (12.1-14.4)
[2018-09-25 06:37] LABS: CALCIUM LEVEL 8.7 MG/DL (8.8-10.2); CREATININE FOR GFR 1.68 MG/DL (0.70-1.30); GLOMERULAR FILTRATION RATE 41.7 (>35); POTASSIUM SERUM 3.9 MEQ/L (3.5-5.1)
[2018-09-25] MEDS: ESCITALOPRAM OXALATE 5MG TABLET (LEXAPRO) PO SCH (09:13)
[2018-09-25] MEDS: FUROSEMIDE 40 MG TAB PO SCH (09:13)
[2018-09-25] MEDS: GABAPENTIN 300 MG CAP PO SCH (09:13)
[2018-09-25] MEDS: CEFDINIR 300 MG CAP (OMNICEF) PO SCH (09:13)
[2018-09-25] MEDS: FERROUS SULFATE 325MG TAB PO SCH ×2 (09:13→21:31)
[2018-09-25] MEDS: PANTOPRAZOLE 40MG TAB (PROTONIX) PO SCH (09:14)
[2018-09-25] MEDS: ASPIRIN 81 MG ENTERIC TAB PO SCH (09:14)
[2018-09-25] MEDS: DOCUSATE SODIUM 100 MG CAP PO SCH ×2 (09:14→21:25)
[2018-09-25] MEDS: HumaLOG INSULIN (NovoLOG) PER UNIT SC SCH ×3 (09:15→18:12)
--- NOTE | 2018-09-25 11:54 | IPNPDOC ---
Date Seen The patient was seen on 09/25/18. Progress Note HISTORY OF PRESENT ILLNESS: 83-year-old male presenting status post hospital discharge from [facility]. 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 Postoperatively he experienced swelling, anemia, and was treated with IV Zosyn for pneumonia. Prior to this beginning 05/04/18 he underwent a popliteal artery to fibular a rtery bypass with reverse saphenous grafting and subsequently required amputation of his toes secondary to poor healing and gangrene. Initially he only had his first big toe amputated, however poor healing required amputation of his second and third. Eventually he was admitted to the hospital on 08/25/18 with cellulitis and left foot gangrene subsequently underwent a left-sided BKA. The pt was transferred to [facility] to the care of Dr Chao 09/04/18. He is OOB to wheelchair. No voiced complaints at this time. The pt has been noted to have a blackened area at the end of the Rt great toe. Vascular surgery consulted 09/18/18. The area has been unchanged. 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 No acute distress. Alert and oriented x 3. HEENT: Normocephalic, atraumatic. Sclera are nonicteric. Conjunctiva without injection. No facial asymmetry. Moist mucous membranes. CHEST: Regular rate and rhythm, +S1, +S2 LUNGS: Clear to auscultation bilaterally. No wheezes, rales, or rhonchi. ABD: Round, soft, non-tender, non-distended. +Bowel sounds throughout. No rebound or guarding. No costovertebral angle tenderness. EXT: Tr- 1mm Rt lower extremity edema appreciated/TEDS removed. Dressing intact Lt BKA. There is a small blackened oval area at the tip of the Rt Great toes which appears to be unchanged from prior. No surrounding erythema or drainage noted. SKIN: [place], dry, warm. NEURO: No focal deficits appreciated. Arterial U/S RLE 09/18/18 Findings are consistent with peripheral vascular disease including possible non-visualized area of stenosis through the superficial femoral vein/popliteal artery region. Electronically Signed by Roney Yusuf MD 09/19/2018 06:05 A A&P: 83-year-old male presenting status post hospital discharge from [facility]. Patient is a poor historian, much information is obtained from the [facility]. 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 Postoperatively he experienced swelling, anemia, and was treated with IV Zosyn for pneumonia. Prior to this beginning 05/04/18 he underwent a popliteal artery to fibular artery bypass with reverse saphenous grafting and subsequently required amputation of his toes secondary to poor healing and gangrene. Initially he only had his first big toe amputated, however poor healing required amputation of his second and third. Eventually he was admitted to the hospital on 08/25/18 with cellulitis and left foot gangrene subsequently underwent a left-sided BKA. The pt was transferred to [facility] to the care of Dr Chao 09/04/18. 1. Left-sided below-knee amputation. H/O PAD/history of occluded bypass graft LLE. The patient was treated empirically with vancomycin during [facility] stay for suspected methicillin-resistant Staphylococcus aureus (MRSA) wound inflection. Mgmt as per [facility]. Wound care as per [facility]. Outpt F/U with vascular surgery. PT/OT Pain control. Bowel care The pt was noted to have a blackened area at the tip of the Rt great toe. It was previously noted by Dr Chao to be a blood filled blister. The area has remained unchanged. Arterial U/S on 09-18-18 indicative of peripheral vascular disease, seen by vascular surgery, Dr Noriega. Plan as per Dr Chao d/w Dr Noriega is to defer any RLE angiography to Dr. Rush with whom he has an appointment 10-02-18 at 10:45 am in [place]. Pt verbalizes understanding and agreement. 2. Diabetes. CC diet SSI Levemir Has had adjustments in regimen as per Dr Chao. 3. Diastolic dysfunction. No fluid overload currently. Continue Lasix 40 mg by mouth daily. Monitor. 4. Hypertension. Currently, blood pressure is in satisfactory range. Lasix po. 5. Atrial fibrillation. Rate control digoxin, add digoxin level to labs. Anticoagulation, warfarin. The patient's INR is 2.47. Monitor PT/INR. 6. Chronic kidney disease, continue to monitor. SCr baseline appears to be 1.5-1.6. 1.68 this AM. 7. History of transient ischemic attack (TIA) on aspirin. According to the record, the patient is intolerant of statin. 8. Diabetic neuropathy on gabapentin. 9. UTI. E Coli 50,000 CFU as per UC 09/13/17. Completed Cefdinir x10d. 10. Anemia. likely acute blood loss. Hgb 9.4. Fe BID. Monitor. VS, I&O, 24H, Fishbone Vital Signs/I&O Vital Signs Date Time Temp Pulse Resp B/P (MAP) Pulse Ox O2 Delivery O2 Flow Rate FiO2 09/25/18 06:00 98.6 55 18 120/56 (77) 96 Room Air I&O- Last 24 Hours up to 6 AM 09/25/18 06:00 Intake Total 900 ml Balance 900 ml Laboratory Data 24H LABS Laboratory Tests 2 09/24/18 12:22: Bedside Glucose (Misc Panel) 155H 09/24/18 17:27: Bedside Glucose (Misc Panel) 179H 09/24/18 20:31: Bedside Glucose (Misc Panel) 159H 09/25/18 05:49: Immature Granulocyte % (Auto) 1.1, White Blood Count 5.3, Red Blood Count 3.02L, Hemoglobin 9.4L, Hematocrit 28.4L, Mean Corpuscular Volume 94.0, Mean Corpuscular Hemoglobin 31.1, Mean Corpuscular Hemoglobin Concent 33.1, Red Cell Distribution Width 15.8H, Platelet Count 191, Neutrophils (%) (Auto) 56.6, Lymph ocytes (%) (Auto) 23.7L, Monocytes (%) (Auto) 11.1H, Eosinophils (%) (Auto) 6.2H, Basophils (%) (Auto) 1.3H, Neutrophils # (Auto) 3.0, Lymphocytes # (Auto) 1.3L, Monocytes # (Auto) 0.6, Eosinophils # (Auto) 0.3, Basophils # (Auto) 0.1, Nucleated Red Blood Cells % (auto) 0.0, Prothrombin Time 27.3H, Prothromb Time International Ratio 2.47, Anion Gap 7L, Glomerular Filtration Rate 41.7, Blood Urea Nitrogen 32H, Creatinine 1.68H, Sodium Level 140, Potassium Level 3.9, Chloride Level 106, Carbon Dioxide Level 27, Calcium Level 8.7L CBC/BMP Laboratory Tests 09/25/18 05:49 Red Blood Count 3.02 L, Mean Corpuscular Volume 94.0, Mean Corpuscular Hemoglobin 31.1, Mean Corpuscular Hemoglobin Concent 33.1, Red Cell Distribution Width 15.8 H, Neutrophils (%) (Auto) 56.6, Lymphocytes (%) (Auto) 23.7 L, Monocytes (%) (Auto) 11.1 H, Eosinophils (%) (Auto) 6.2 H, Basophils (%) (Auto) 1.3 H, Neutrophils # (Auto) 3.0, Lymphocytes # (Auto) 1.3 L, Monocytes # (Auto) 0.6, Eosinophils # (Auto) 0.3, Basophils # (Auto) 0.1, Calcium Level 8.7 L Nia Epperson Sep 25, 2018 11:54
[2018-09-25 14:00] VITALS: BP 108/73
[2018-09-25] MEDS: WARFARIN SOD 2 MG TAB PO SCH (18:12)
--- NOTE | 2018-09-25 19:50 | IPNPDOC ---
PM&R Progress Note DATE OF SERVICE: Sep 25, 2018 Attendant [employer] Progress Note Subjective: Patient had a good weekend and did well with room privileges. REVIEW OF SYSTEMS: The following is a completed review of systems and has been reviewed. Review of systems otherwise unremarkable. PAIN: Patient self reports no pain EYES: Negative for recent vision changes. EARS, NOSE, & THROAT:+[place], no dysphagia or rhinorrhea CARDIOVASCULAR: denies chest pain or palpitations PULMONARY: Negative. Denies shortness of breath GASTROINTESTINAL: Negative for constipation or diarrhea GENITOURINARY: Negative for dysuria MUSCULOSKELETAL: left BKA NEUROLOGICAL: +distal neuropathy HEMATOLOGICAL: bilat UE ecchymosis SKIN: left BKA incision PSYCHIATRIC: Unremarkable All other review of systems found to be negative. PHYSICAL EXAMINATION: VITAL SIGNS: Please see below. GENERAL: Pleasant and cooperative. No acute distress. HEENT: PERRL. Extraocular movements intact. Clear conjunctiva, +glasses CARDIOVASCULAR: Irregular rate and rhythm. No murmurs, rubs, or gallops LUNGS: Clear to auscultation bilaterally. No wheezes. No rhonchi ABDOMEN: Soft, nontender, nondistended. Positive bowel sounds. Normal active bowel sounds NEUROLOGICAL: Alert and oriented times three. Cranial nerves II through XII grossly intact. Sensation grossly intact except diminished right LE EXTREMITIES: 5-\5 strength bilateral upper extremities.5-\5 strength right hip flexors and knee extensors, 2/5 ankle DF and 0/5 EHL 5-/5 strength in left hip flexors, knee extensors and flexors lower extremity. . SKIN: left residual limb with sutures and kennedy, mild erythema, minimal swell ing, +sternotomy scar +right foot D1 black (blood filled) blister, does not appear to be a pressure ulcer or DTI, stable ASSESSMENT:84-year-old M with past medical history of CAD, DM, PAD who presents status post Left BKA. PLAN: 1. Rehab: PT, OT, assess for DME, keep residual limb in extension to prevent flexion contracture, transfers gradually improving with slide board, improving toilet transfers, ready for room privielges 2. Neuro: stable, hx of TIAs, continue ASA and statin for secondary stroke prevention- monitor BPs and adjust meds prn 3. CArdio: pmh Afic, AVR and mitral valve repair, with chronic diastolic CHF- continue digoxin, Coumadin, and lasix- medicine consulted, recs appreciated 4. 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 Endo: pmh uncontrolled DM continue insulin coverage and adjust, consider restarting oral agents-stable 6. ID: s/p recent course of IV ZOsyn and Vanco, monitor for infection- stable 7. : admission UA negative, however Ux + E. coli, repeat UA with trace LE, also + E.coli, continue Cefdinir 8. DVT ppx: on Coumadin 9. GI ppx: Protonix 10. Skin: daily dressing changes, monitor right foot D1 blister very slightly larger, continue to apply skin prep- Arterial on 09-18-18 positive for peripheral vascular disease, seen by vascular surgery in house and will defer any RLE angiography to Dr. Rush with whom he has an appointment 10-02-18 at 10:45 am in [facility] 11. Dispo: was scheduled for 09-20-18 however having difficulty with safety awareness will post-pone d/c until 09/26 to home Patient is currently wheelchair bound and cannot complete his MADLs without the use of one. He is unsteady on his leg, lacks proprioception and is at high risk of falling. His house is wheelchair accessible, he is agreeable to using one, and his family members have agreed to help him use it. Having a wheelchair will greatly improve his ability to complete his activities of daily living in a safe way. Allergies Coded Allergies: Statins (Unverified Adverse Reaction, Mild, LEGS FEEL HEAVY, 09/04/18) Vital Signs Vital Signs Date Time Temp Pulse Resp B/P (MAP) Pulse Ox O2 Delivery O2 Flow Rate FiO2 09/25/18 14:00 97.4 68 20 108/73 (85) 97 09/25/18 06:00 Room Air Laboratory Data CBC/BMP Laboratory Tests 09/25/18 05:49 Red Blood Count 3.02 L, Mean Corpuscular Volume 94.0, Mean Corpuscular Hemoglobin 31.1, Mean Corpuscular Hemoglobin Concent 33.1, Red Cell Distribution Width 15.8 H, Neutrophils (%) (Auto) 56.6, Lymphocytes (%) (Auto) 23.7 L, Monocytes (%) (Auto) 11.1 H, Eosinophils (%) (Auto) 6.2 H, Basophils (%) (Auto) 1.3 H, Neutrophils # (Auto) 3.0, Lymphocytes # (Auto) 1.3 L, Monocytes # (Auto) 0.6, Eosinophils # (Auto) 0.3, Basophils # (Auto) 0.1, Calcium Level 8.7 L Labs 24H Laboratory Tests 2 09/24/18 20:31: Bedside Glucose (Misc Panel) 159H 09/25/18 05:49: Immature Granulocyte % (Auto) 1.1, White Blood Count 5.3, Red Blood Count 3.02L, Hemoglobin 9.4L, Hematocrit 28.4L, Mean Corpuscular Volume 94.0, Mean Corpuscular Hemoglobin 31.1, Mean Corpuscular Hemoglobin Concent 33.1, Red Cell Distribution Width 15.8H, Platelet Count 191, Neutrophils (%) (Auto) 56.6, Lymphocytes (%) (Auto) 23.7L, Monocytes (%) (Auto) 11.1H, Eosinophils (%) (Auto) 6.2H, Basophils (%) (Auto) 1.3H, Neutrophils # (Auto) 3.0, Lymphocytes # (Auto) 1.3L, Monocytes # (Auto) 0.6, Eosinophils # (Auto) 0.3, Basophils # (Auto) 0.1, Nucleated Red Blood Cells % (auto) 0.0, Prothrombin Time 27.3H, Prothromb Time International Ratio 2.47, Anion Gap 7L, Glomerular Filtration Rate 41.7, Blood Urea Nitrogen 32H, Creatinine 1.68H, Sodium Level 140, Potassium Level 3.9, Chloride Level 106, Carbon Dioxide Level 27, Calcium Level 8.7L, Digoxin Level 1.0 09/25/18 11:51: Bedside Glucose (Misc Panel) 123H 09/25/18 17:33: Bedside Glucose (Misc Panel) 173H Current Medications Current Medications Current Medications Acetaminophen (Tylenol Tab) 650 mg Q4HP PRN PO fever/MILD PAIN (PS 1-4) Last administered on 09/23/18at 20:50; Start 09/04/18 at 16:30 Albuterol/ Ipratropium (Duoneb (Ipr 0.5mg/Alb 2.5mg)) 3 ml Q6HP PRN NEB SOB/WHEEZING; Start 09/04/18 at 17:00 Aspirin (Ecotrin) 81 mg DAILY PO Last administered on 09/25/18at 09:14; Start 09/05/18 at 09:00 Bisacodyl (Dulcolax Suppository) 10 mg DAILYPRN PRN SC CONSTIPATION; Start 09/04/18 at 16:30 Cefdinir (Omnicef) 300 mg BID PO Last administered on 09/25/18 09:13; Start 09/15/18 at 21:00; Stop 09/25/18 at 09:01; Status DC Dextrose (Dextrose 50%) 25 ml ASDIRECTED PRN IV SEE LABEL COMMENTS; Start 09/04/18 at 17:00 Diazepam (Valium) 2 mg Q8HP PRN PO spasm; Start 09/04/18 at 17:00; Stop 09/11/18 at 11:26; Status DC Digoxin (Lanoxin) 0.125 mg DAILY@2100 PO Last administered on 09/23/18at 20:49; Start 09/04/18 at 21:00 Docusate Sodium (Colace) 100 mg BID PO Last administered on 09/24/18 08:03; Start 09/04/18 at 21:00 Doxycycline Hyclate (Vibramycin) 100 mg BID PO ; Start 09/04/18 at 21:00; Stop 09/04/18 at 21:00; Status DC Escitalopram Oxalate (Lexapro) 5 mg DAILY PO Last administered on 09/25/18at 09:13; Start 09/05/18 at 09:00 EZETIMIBE (Zetia) 10 mg QHS PO Last administered on 09/24/18at 21:06; Start 09/04/18 at 21:00 Fenofibrate (Tricor) 145 mg DAILY@2100 PO Last administered on 09/24/18at 21:06; Start 09/04/18 at 21:00 Ferrous Sulfate (Ferrous Sulfate) 325 mg BID PO Last administered on 09/25/18at 09:13; Start 09/04/18 at 21:00 Furosemide (Lasix) 40 mg DAILY PO Last administered on 09/25/18at 09:13; Start 09/05/18 at 09:00 Gabapentin (Neurontin) 300 mg BID PO Last administered on 09/21/18at 20:01; Start 09/04/18 at 21:00; Stop 09/21/18 at 21:19; Status DC Gabapentin (Neurontin) 300 mg DAILY PO Last administered on 09/25/18at 09:13; Start 09/22/18 at 09:00; Stop 09/25/18 at 17:13; Status DC Glucagon (Glucagon) 1 mg ASDIRECTED PRN SC SEE LABEL COMMENTS; Start 09/04/18 at 17:00 Glucose (Glucose) 16 GM ASDIRECTED PRN PO SEE LABEL COMMENTS; Start 09/04/18 at 17:00 Home Med (Med Rec Complete!) ASDIRECTED XX ; Start 09/04/18 at 13:30; Stop 09/04/18 at 13:30; Status DC Insulin Detemir (Levemir Insulin) 20 units QHS SC Last administered on 09/06/18at 21:03; Start 09/04/18 at 21:00; Stop 09/07/18 at 10:24; Status DC Insulin Detemir (Levemir Insulin) 24 units QHS SC Last administered on 09/12/18at 22:19; Start 09/07/18 at 21:00; Stop 09/13/18 at 15:13; Status DC Insulin Detemir (Levemir Insulin) 28 units QHS SC Last administered on 09/21/18at 20:01; Start 09/13/18 at 21:00; Stop 09/21/18 at 21:19; Status DC Insulin Detemir (Levemir Insulin) 30 units QHS SC Last administered on 09/24/18at 21:06; Start 09/22/18 at 21:00 Insulin Human Lispro (HumaLOG INSULIN) 2 units AC SC Last administered on 09/07/18at 07:26; Start 09/06/18 at 07:30; Stop 09/07/18 at 10:24; Status DC Insulin Human Lispro (HumaLOG INSULIN) 4 units AC SC Last administered on 09/07/18at 12:43; Start 09/07/18 at 12:00; Stop 09/07/18 at 15:04; Status DC Insulin Human Lispro (HumaLOG INSULIN) 6 units AC SC Last administered on 09/21/18at 16:57; Start 09/20/18 at 17:30; Stop 09/21/18 at 21:19; Status DC Insulin Human Lispro (HumaLOG INSULIN) 6 units AC SC Last administered on 09/13/18at 12:00; Start 09/07/18 at 17:30; Stop 09/13/18 at 15:13; Status DC Insulin Human Lispro (HumaLOG INSULIN) 8 units AC SC Last administered on 09/25/18at 18:12; Start 09/22/18 at 07:30 Insulin Human Lispro (HumaLOG INSULIN) 10 units AC SC Last administered on 09/20/18at 08:42; Start 09/13/18 at 17:30; Stop 09/20/18 at 12:27; Status DC Insulin Human Lispro (HumaLOG INSULIN) SEE PROTOCOL TABLE AC SC Last administered on 09/20/18at 08:42; Start 09/04/18 at 17:30; Stop 09/20/18 at 12:27; Status DC Levofloxacin (Levaquin) 250 mg DAILY@06 PO Last administered on 09/15/18at 06:13; Start 09/12/18 at 06:00; Stop 09/15/18 at 11:05; Status DC Magnesium Hydroxide (Milk Of Magnesia) 30 ml DAILYPRN PRN PO CONSTIPATION; Start 09/04/18 at 16:30 Miscellaneous (Unresolved Clarification Entry) SEE LABEL COMMENTS DAILY XX ; Start 09/17/18 at 09:00; Stop 09/17/18 at 16:13; Status DC Miscellaneous (Unresolved Clarification Entry) SEE LABEL COMMENTS DAILY XX ; Start 09/24/18 at 09:00; Stop 09/24/18 at 14:36; Status DC Miscellaneous (Unresolved Clarification Entry) SEE LABEL COMMENTS DAILY XX ; Start 09/10/18 at 09:00; Stop 09/11/18 at 11:29; Status DC Miscellaneous (Unresolved Patient Own Med Order) SEE LABEL COMMENTS DAILY XX ; Start 09/23/18 at 09:00; Stop 09/24/18 at 07:28; Status DC Ondansetron HCl (Zofran) 4 mg Q6HP PRN PO NAUSEA; Start 09/04/18 at 16:30 Oxycodone/ Acetaminophen (Percocet 5mg/ 325mg Tablet) 1 tab Q4HP PRN PO MODERATE PAIN (PS 5-7); Start 09/04/18 at 16:30; Status Cancel Oxycodone/ Acetaminophen (Percocet 5mg/ 325mg Tablet) 2 tab Q4HP PRN PO SEVERE PAIN (PS 8-10); Start 09/04/18 at 16:30; Status Cancel Pantoprazole Sodium (Protonix) 40 mg DAILY PO Last administered on 09/25/18at 09:14; Start 09/05/18 at 09:00 Piperacillin Sod/ Tazobactam Sod 3.375 gm/Dextrose 50 ml @ 100 mls/hr Q6H IV ; Start 09/04/18 at 17:00; Stop 09/04/18 at 17:07; Status DC Senna (Senokot) 1 tab QHS PO Last administered on 09/23/18at 20:49; Start 09/04/18 at 21:00 Warfarin Sodium (Coumadin) 4 mg DAILY@17 PO Last administered on 09/25/18at 18:12; Start 09/11/18 at 17:00 Warfarin Sodium (Coumadin) 5 mg DAILY@17 PO Last administered on 09/10/18at 17:34; Start 09/04/18 at 17:00; Stop 09/11/18 at 10:35; Status DC GERMAINE [place] MD Sep 25, 2018 19:50
[2018-09-25 21:00] VITALS: BP 124/67
[2018-09-25] MEDS: SENNA 8.6 MG TAB (SENOKOT) PO SCH (21:26)
[2018-09-25] MEDS: FENOFIBRATE 145 MG TAB (TRICOR) PO SCH (21:31)
[2018-09-25] MEDS: DIGOXIN 0.125 MG TAB PO SCH (21:31)
[2018-09-25] MEDS: LEVEMIR (INSULIN DETEMIR) 1 UNITS/0.01ML SC SCH (21:31)
[2018-09-25] MEDS: EZETIMIBE 10 MG TAB (ZETIA) PO SCH (21:31)
[2018-09-26 06:00] VITALS: BP 125/59
[2018-09-26 07:37] LABS: INR 2.18; PROTHROMBIN TIME 24.7 SECONDS (12.1-14.4)
[2018-09-26] MEDS: FUROSEMIDE 40 MG TAB PO SCH (09:04)
[2018-09-26] MEDS: ESCITALOPRAM OXALATE 5MG TABLET (LEXAPRO) PO SCH (09:04)
[2018-09-26] MEDS: ASPIRIN 81 MG ENTERIC TAB PO SCH (09:04)
[2018-09-26] MEDS: HumaLOG INSULIN (NovoLOG) PER UNIT SC SCH ×2 (09:04→12:46)
[2018-09-26] MEDS: FERROUS SULFATE 325MG TAB PO SCH (09:04)
[2018-09-26] MEDS: DOCUSATE SODIUM 100 MG CAP PO SCH (09:05)
[2018-09-26] MEDS: PANTOPRAZOLE 40MG TAB (PROTONIX) PO SCH (09:05)
[2018-09-26] MEDS ORDERED: PANT40TA3 PO (11:12)
[2018-09-26] MEDS ORDERED: FENO145T13 PO (11:12)
[2018-09-26] MEDS ORDERED: FERR1TAB8 PO (11:12)
[2018-09-26] MEDS ORDERED: ASPI81TAEC PO (11:12)
[2018-09-26] MEDS ORDERED: INSUDET SC (11:12)
[2018-09-26] MEDS ORDERED: EZET10TA PO (11:12)
[2018-09-26] MEDS ORDERED: COLA100C5 PO (11:12)
[2018-09-26] MEDS ORDERED: DIGO0.12 PO (11:12)
[2018-09-26] MEDS ORDERED: LEXA5TAB13 PO (11:12)
[2018-09-26] MEDS ORDERED: FURO40TA2 PO (11:12)
[2018-09-26] MEDS ORDERED: COUM2TAB22 PO (11:12)
[2018-09-26] MEDS ORDERED: INSUHUMDS SC (11:12)
== END 2018-09-26 15:10 | disposition home health service (06) | DRG 560 ==
LOC: M PM&R 12:00
PROVIDERS: ADMIT Physical Medicine & Rehabilitation; ATTEND Physical Medicine & Rehabilitation
DX: Z47.81 Encounter for orthopedic aftercare following surgical amputation (principal); I50.32 Chronic diastolic (congestive) heart failure; I13.0 Hypertensive heart and chronic kidney disease with heart failure and stage 1 through stage 4 chronic kidney disease, or unspecified chronic kidney disease; N39.0 Urinary tract infection, site not specified; I48.91 Unspecified atrial fibrillation; E11.51 Type 2 diabetes mellitus with diabetic peripheral angiopathy without gangrene; N18.3 Chronic kidney disease, stage 3 (moderate); I25.10 Atherosclerotic heart disease of native coronary artery without angina pectoris; E11.22 Type 2 diabetes mellitus with diabetic chronic kidney disease; Z89.512 Acquired absence of left leg below knee; E11.65 Type 2 diabetes mellitus with hyperglycemia; E11.42 Type 2 diabetes mellitus with diabetic polyneuropathy; B96.20 Unspecified Escherichia coli [E. coli] as the cause of diseases classified elsewhere; H91.93 Unspecified hearing loss, bilateral; J44.9 Chronic obstructive pulmonary disease, unspecified; E66.9 Obesity, unspecified; I70.201 Unspecified atherosclerosis of native arteries of extremities, right leg; Z86.73 Personal history of transient ischemic attack (TIA), and cerebral infarction without residual deficits; Z86.14 Personal history of Methicillin resistant Staphylococcus aureus infection; Z95.2 Presence of prosthetic heart valve; Z87.891 Personal history of nicotine dependence; Z79.4 Long term (current) use of insulin; Z79.01 Long term (current) use of anticoagulants; Z79.82 Long term (current) use of aspirin; Z79.899 Other long term (current) drug therapy; Z88.8 Allergy status to other drugs, medicaments and biological substances; Z99.3 Dependence on wheelchair